=== PATIENT | female | born 1995 | race Hispanic/Latino ===

== ENCOUNTER 2019-03-12 20:20 | Emergency (ER) | payer BC ==
[2019-03-12] MEDS ORDERED: ACYCLOVIR 400 MG TABLET ONE (21:54)
[2019-03-12] MEDS ORDERED: predniSONE 20 MG TAB ONE (21:54)
[2019-03-12] MEDS ORDERED: FAMOTIDINE 20 MG TAB ONE (21:55)
--- NOTE | 2019-03-12 21:57 | ER ---
Nurse's Notes [facility] Name: Selina Bernstein Age: 24 yrs Sex: Female : 1995 Arrival Date: 03/12/2019 Time: 20:24 Bed 23 Private MD: Diagnosis: Enteroviral vesicular pharyngitis Presentation: 03/12 20:35 Presenting complaint: Patient states: throat pain X2 days, left side of face pain and ak1 left ear pain. Transition of care: patient was not received from another setting of care. Onset of symptoms is unknown. Risk Assessment: Do you want to hurt yourself or someone else? Patient reports no desire to harm self or others. Initial Sepsis Screen: Does the patient meet any 2 criteria? No. Patient's initial sepsis screen is negative. Does the patient have a suspected source of infection? No. Patient's initial sepsis screen is negative. Care prior to arrival: None. 20:35 Method Of Arrival: Ambulatory ak1 20:35 Acuity: SUNNI 4 ak1 Triage Assessment: 20:34 General: Appears in no apparent distress. Behavior is calm, cooperative. 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 - Social history:: Smoking status: Patient/guardian denies using tobacco. - Ebola Screening: : No symptoms or risks identified at this time. Screenin:20 Abuse screen: Denies threats or abuse. Denies injuries from another. Nutritional rv screening: No deficits noted. Tuberculosis screening: No symptoms or risk factors identified. Fall Risk None identified. Assessment: 21:19 General: Appears in no apparent distress. comfortable, Behavior is calm, cooperative. rv Pain: Complains of pain in face. Neuro: Level of Consciousness is awake, alert, obeys commands, Oriented to person, place, time, situation. Cardiovascular: Patient's skin is warm and dry. Respiratory: Airway is patent. GI: No signs and/or symptoms were reported involving the gastrointestinal system. : No signs and/or symptoms were reported regarding the genitourinary system. EENT: No signs and/or symptoms were reported regarding the EENT system. Derm: Skin is intact. Vital Signs: 20:34 BP 137 / 100; Pulse 92; Resp 16; Temp 97.4; Pulse Ox 99% on R/A; Weight 83.91 kg (R); ak1 Height 5 ft. 0 in. (152.40 cm) (R); Pain 7/10; 22:08 BP 125 / 85; Pulse 86; Resp 16; Pulse Ox 99% on R/A; rv 20:34 Body Mass Index 36.13 (83.91 kg, 152.40 cm) ak1 ED Course: 20:24 Patient arrived in ED. mr 20:34 Arm band placed on Patient placed in waiting room, Patient notified of wait time. ak1 20:35 Triage completed. ak1 20:45 Saleem Quiroz MD is Attending Physician. snw 20:45 Nadeen Dukes FNP-C is PHCP. snw 21:19 Brenden Hirsch RN is Primary Nurse. rv 21:20 Patient has correct armband on for positive identification. Bed in low position. Call rv light in reach. Side rails up X 1. Adult w/ patient. Pulse ox on. NIBP on. 22:08 No provider procedures requiring assistance completed. Patient did not have IV access rv during this emergency room visit. Administered Medications: 21:59 Drug: predniSONE 40 mg Route: PO; rv 22:07 Follow up: Response: No adverse reaction rv 21:59 Drug: Pepcid 20 mg Route: PO; rv 22:07 Follow up: Response: No adverse reaction rv 21:59 Drug: Acyclovir 800 mg Route: PO; rv 22:07 Follow up: Response: No adverse reaction rv Outcome: 21:56 Discharge ordered by . snw 22:08 Discharged to home ambulatory, with family. rv 22:08 Condition: good 22:08 Discharge instructions given to patient, Instructed on discharge instructions, follow up and referral plans. medication usage, Demonstrated understanding of instructions, follow-up care, medications, Prescriptions given X 2. 22:09 Patient left the ED. rv Signatures: Nadeen Dukes FNP-C FNP-Javier Ignacio Karol IrammiltonMarielena, RN RN ak1 Torrey, Brenden, RN RN rv
--- NOTE | 2019-03-12 21:57 | EDPHYS ---
Physician Documentation [facility] Name: Selina Bernstein Age: 24 yrs Sex: Female : 1995 Arrival Date: 03/12/2019 Time: 20:24 Bed 23 Private MD: ED Physician Saleem Quiroz HPI: 03/12 23:16 This 24 yrs old Female presents to ER via Ambulatory with complaints of Facial snw Swelling. 23:16 The patient presents with sore throat. The patient describes throat pain as raw, snw scratchy. Onset: The symptoms/episode began/occurred 3 day(s) ago, and became worse and became persistent. Severity of symptoms: At their worst the symptoms were mild, moderate. Associated signs and symptoms: Pertinent positives: earache, Sore throat pain with opening mouth. The patient has not experienced similar symptoms in the past. The patient has not recently seen a physician. pt feels tingly and swollen over left face. 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 - Social history:: Smoking status: Patient/guardian denies using tobacco. - Ebola Screening: : No symptoms or risks identified at this time. ROS: 23:15 Constitutional: Negative for fever, chills, and weight loss, Eyes: Negative for injury, snw pain, redness, and discharge, Neck: Negative for injury, pain, and swelling, Cardiovascular: Negative for chest pain, palpitations, and edema, Respiratory: Negative for shortness of breath, cough, wheezing, and pleuritic chest pain, Abdomen/GI: Negative for abdominal pain, nausea, vomiting, diarrhea, and constipation, Back: Negative for injury and pain, : Negative for injury, bleeding, discharge, and swelling, MS/Extremity: Negative for injury and deformity, Neuro: Negative for headache, weakness, numbness, tingling, and seizure, Psych: Negative for depression, anxiety, suicide ideation, homicidal ideation, and hallucinations. 23:15 ENT: Positive for ear pain, sore throat. 23:15 Skin: Positive for left face feels swollen and mildly tender from nondenominational to anterior cervical area. Exam: 22:53 Constitutional: This is a well developed, well nourished patient who is awake, alert, snw and in no acute distress. Head/Face: Normocephalic, atraumatic. Eyes: Pupils equal round and reactive to light, extra-ocular motions intact. Lids and lashes normal. Conjunctiva and sclera are non-icteric and not injected. Cornea within normal limits. Periorbital areas with no swelling, redness, or edema. Neck: Trachea midline, no thyromegaly or masses palpated, and no cervical lymphadenopathy. Supple, full range of motion without nuchal rigidity, or vertebral point tenderness. No Meningismus. Chest/axilla: Normal chest wall appearance and motion. Nontender with no deformity. No lesions are appreciated. Cardiovascular: Regular rate and rhythm with a normal S1 and S2. No gallops, murmurs, or rubs. Normal PMI, no JVD. No pulse deficits. Respiratory: Lungs have equal breath sounds bilaterally, clear to auscultation and percussion. No rales, rhonchi or wheezes noted. No increased work of breathing, no retractions or nasal flaring. Abdomen/GI: Soft, non-tender, with normal bowel sounds. No distension or tympany. No guarding or rebound. No evidence of tenderness throughout. Back: No spinal tenderness. No costovertebral tenderness. Full range of motion. Skin: Warm, dry with normal turgor. Normal color with no rashes, no lesions, and no evidence of cellulitis. MS/ Extremity: Pulses equal, no cyanosis. Neurovascular intact. Full, normal range of motion. Neuro: Awake and alert, GCS 15, oriented to person, place, time, and situation. Cranial nerves II-XII grossly intact. Motor strength 5/5 in all extremities. Sensory grossly intact. Cerebellar exam normal. Normal gait. Psych: Awake, alert, with orientation to person, place and time. Behavior, mood, and affect are within normal limits. 22:53 ENT: External ear(s): are unremarkable, TM's: are normal, Nose: is normal, Mouth: Oral mucosa: moist, Posterior pharynx: vesicle present at left mandibular soft palate posterior to last molar, pain increase with swallowing, opening mouth, left face with paresthesias. Vital Signs: 20:34 BP 137 / 100; Pulse 92; Resp 16; Temp 97.4; Pulse Ox 99% on R/A; Weight 83.91 kg (R); ak1 Height 5 ft. 0 in. (152.40 cm) (R); Pain 7/10; 22:08 BP 125 / 85; Pulse 86; Resp 16; Pulse Ox 99% on R/A; rv 20:34 Body Mass Index 36.13 (83.91 kg, 152.40 cm) ak1 MDM: 21:51 Patient medically screened. snw 22:55 Data reviewed: vital signs, nurses notes. Data interpreted: Pulse oximetry: on room air snw is 99 %. Interpretation: normal. Counseling: I had a detailed discussion with the patient and/or guardian regarding: the historical points, exam findings, and any diagnostic results supporting the discharge/admit diagnosis, to return to the emergency department if symptoms worsen or persist or if there are any questions or concerns that arise at home. Special discussion: Based on the history and exam findings, there is no indication for further emergent testing or inpatient evaluation. I discussed with the patient/guardian the need to see the primary care provider for further evaluation of the symptoms. 03/12 20:45 Order name: Strep; Complete Time: 22:56 snw Administered Medications: 21:59 Drug: predniSONE 40 mg Route: PO; rv 22:07 Follow up: Response: No adverse reaction rv 21:59 Drug: Pepcid 20 mg Route: PO; rv 22:07 Follow up: Response: No adverse reaction rv 21:59 Drug: Acyclovir 800 mg Route: PO; rv 22:07 Follow up: Response: No adverse reaction rv Disposition: 03/13 07:21 Co-signature as Attending Physician, Saleem Quiroz MD I agree with the assessment and kdr plan of care. Disposition: 03/12/19 21:56 Discharged to Home. Impression: Enteroviral vesicular pharyngitis. - Condition is Stable. - Discharge Instructions: Paresthesia, Pharyngitis. - Prescriptions for Valtrex 1 g Oral Tablet - take 1 tablet by ORAL route every 8 hours for 7 days; 21 tablet. Prednisone 20 mg Oral Tablet - take 2 tablet by ORAL route once daily for 5 days; 10 tablet. - Medication Reconciliation Form, Thank You Letter, Antibiotic Education, Prescription Opioid Use form. - Follow up: Private Physician; When: 2 - 3 days; Reason: Recheck today's complaints, Continuance of care, Re-evaluation by your physician. Follow up: Emergency Department; When: As needed; Reason: Worsening of condition. Signatures: Dispatcher [employer] EDMS Saleem Quiroz MD MD [facility] Nadeen Dukes, AIR TECHNICIAN-C AIR TECHNICIAN-Csnw Marielena Toney RN RN ak1 Brenden Hirsch RN RN rv Corrections: (The following items were deleted from the chart) 03/12 22:09 21:56 03/12/2019 21:56 Discharged to Home. Impression: Enteroviral vesicular rv pharyngitis. Condition is Stable. Forms are Medication Reconciliation Form, Thank You Letter, Antibiotic Education, Prescription Opioid Use. Follow up: Private Physician; When: 2 - 3 days; Reason: Recheck today's complaints, Continuance of care, Re-evaluation by your physician. Follow up: Emergency Department; When: As needed; Reason: Worsening of condition. snw
[2019-03-12 22:43] VITALS: TEMP 97.4; O2SAT 99
[2019-03-12 22:44] VITALS: BP 125/85
== END 2019-03-12 22:09 | disposition home or self-care (01) ==
LOC: ER 20:20
DX: B08.5 Enteroviral vesicular pharyngitis (principal)
CPT/HCPCS: 87070; 87081; 99283; J7512

== ENCOUNTER 2019-06-27 17:03 | Emergency (ER) | payer BC ==
[2019-06-27 18:32] LABS: Absolute Lymphocytes (CBC) 3.1 K/uL (0.7-4.9); Basophils % 0.6 % (0-1.3); Hematocrit 43.5 % (36.0-45.0); Lymphocytes % 28.6 % (15.3-44.8); MPV 8.7 fL (7.6-11.3); RBC Red Blood Cell Count 5.03 M/uL (3.86-4.86)
[2019-06-27 18:51] LABS: Albumin 3.9 g/dL (3.4-5.0); Bilirubin Direct 0.2 mg/dL (0-0.2); Bilirubin Total 0.9 mg/dL (0.2-1.0); Potassium 3.8 mmol/L (3.5-5.1)
[2019-06-27 19:39] LABS: Urine Blood NEGATIVE (NEG); Urine Glucose NEGATIVE (NEG); Urine Protein NEGATIVE (NEG); Urine Specific Gravity 1.025 (1.005-1.030); Urine pH 5.5 (5.0-7.0)
--- NOTE | 2019-06-27 20:21 | EDPHYS ---
Physician Documentation [facility] Name: Selina Bernstein Age: 24 yrs Sex: Female : 1995 Arrival Date: 06/27/2019 Time: 17:07 Bed 28 Private MD: ED Physician Savage Obando HPI: 06/27 20:22 This 24 yrs old Female presents to ER via Ambulatory with complaints of Back la1 Pain. 20:22 The patient presents with pain that is acute, with no known mechanism of injury. The la1 symptoms are located in the low back. Onset: The symptoms/episode began/occurred yesterday. The pain radiates to the abdomen. Associated signs and symptoms: Pertinent negatives: fever, nausea, urinary retention, vomiting, diarrhea. Modifying factors: The patient symptoms are alleviated by nothing, the patient symptoms are aggravated by bending, movement, palpation. Severity of symptoms: At their worst the symptoms were moderate, in the emergency department the symptoms are unchanged. The patient has not experienced similar symptoms in the past. 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 - Social history:: Smoking status: Patient denies any tobacco usage or history of. - Ebola Screening: : Patient negative for fever greater than or equal to 101.5 degrees Fahrenheit, and additional compatible Ebola Virus Disease symptoms Patient denies exposure to infectious person Patient denies travel to an Ebola-affected area in the 21 days before illness onset No symptoms or risks identified at this time. ROS: 20:23 Constitutional: Negative for fever, chills, and weight loss, Eyes: Negative for injury, la1 pain, redness, and discharge, ENT: Negative for injury, pain, and discharge, Neck: Negative for injury, pain, and swelling, Cardiovascular: Negative for chest pain, palpitations, and edema, Respiratory: Negative for shortness of breath, cough, wheezing, and pleuritic chest pain. 20:23 Back: Negative for injury and pain, : Negative for injury, bleeding, discharge, and swelling, MS/Extremity: Negative for injury and deformity, Neuro: Negative for headache, weakness, numbness, tingling, and seizure. 20:23 Back: Positive for pain at rest, pain with movement. Exam: 20:23 Constitutional: This is a well developed, well nourished patient who is awake, alert, la1 and in no acute distress. Head/Face: Normocephalic, atraumatic. Eyes: Periorbital areas with no swelling, redness, or edema. ENT: Mucous membranes moist. Neck: Trachea midline, . No Meningismus. Chest/axilla: Normal chest wall appearance and motion. Nontender with no deformity. No lesions are appreciated. Cardiovascular: Regular rate and rhythm with a normal S1 and S2. No gallops, murmurs, or rubs. Normal PMI, no JVD. No pulse deficits. Respiratory: Lungs have equal breath sounds bilaterally, clear to auscultation No rales, rhonchi or wheezes noted. No increased work of breathing, no retractions or nasal flaring. Abdomen/GI: Soft, non-tender, with normal bowel sounds. No distension or tympany. No guarding or rebound. No evidence of tenderness throughout. 20:23 Back: pain, that is moderate, of the right low back, ROM is normal, normal spinal alignment noted, CVA tenderness, is absent, tenderness to palpation that reproduces sx to the right low back. 20:23 Neuro: Orientation: is normal, Mentation: is normal, Motor: is normal, Sensation: is normal, Gait: is steady. Vital Signs: 17:38 BP 139 / 82; Pulse 97; Resp 16; Temp 98.5; Pulse Ox 99% on R/A; Weight 83.46 kg; Height iw 5 ft. (152.40 cm); Pain 8/10; 19:17 BP 122 / 85; Pulse 96; Resp 18; Pulse Ox 100% on R/A; mg2 20:25 BP 123 / 78; Pulse 80; Resp 18; Temp 98(O); Pulse Ox 100% ; mg2 17:38 Body Mass Index 35.93 (83.46 kg, 152.40 cm) iw MDM: 17:59 Patient medically screened. la1 20:16 Data reviewed: vital signs, nurses notes, lab test result(s), and as a result, I will la1 discharge patient. Data interpreted: Pulse oximetry: on room air is 100 %. Interpretation: normal. Counseling: I had a detailed discussion with the patient and/or guardian regarding: the historical points, exam findings, and any diagnostic results supporting the discharge/admit diagnosis, lab results, the need for outpatient follow up, a family practitioner. Special discussion: Based on the patient's Hx, exam, and Dx evaluation, there is no indication for emergent surgery or inpatient Tx. It is understood by the patient/guardian that if the Sx's persist or worsen they need to return immediately for re-evaluation. Based on the history and exam findings, there is no indication for further emergent testing or inpatient evaluation. I discussed with the patient/guardian the need to see the primary care provider for further evaluation of the symptoms. 06/27 18:14 Order name: Basic Metabolic Panel; Complete Time: 18:54 la06/27 18:14 Order name: CBC with Diff; Complete Time: 18:54 va06/27 18:14 Order name: Hepatic Function; Complete Time: 18:54 06/27 18:14 Order name: Lipase; Complete Time: 18:54 06/27 19:17 Order name: Urine Dipstick--Ancillary (enter results); Complete Time: 20:03 bd 06/27 19:17 Order name: Urine --Ancillary (enter results); Complete Time: 20:03 bd 06/27 18:14 Order name: IV Saline Lock; Complete Time: 18:32 la1 06/27 18:14 Order name: Labs collected and sent; Complete Time: 18:32 la06/27 18:14 Order name: Urine Dipstick-Ancillary (obtain specimen); Complete Time: 18:14 06/27 18:14 Order name: Urine Test (obtain specimen); Complete Time: 18:14 la1 Administered Medications: No medications were administered Disposition: 06/28 08:11 Co-signature as Attending Physician, Savage Obando MD. rn Disposition: 06/27/19 20:20 Discharged to Home. Impression: Low back pain. - Condition is Stable. - Discharge Instructions: Back Pain, Adult, Musculoskeletal Pain, Back Pain, Adult, [id number], Back Exercises, [id number]. - Prescriptions for Cyclobenzaprine 10 mg Oral Tablet - take 1 tablet by ORAL route every 8 hours As needed; 30 tablet. - Medication Reconciliation Form, Thank You Letter form. - Follow up: Private Physician; When: 2 - 3 days; Reason: Recheck today's complaints, Re-evaluation by your physician. - Problem is new. - Symptoms have improved. Signatures: Dispatcher [employer] EDNevin Gannon RN RN iw Savage Obando MD MD rn Attema, Lee, ATTENDING AMBULATORY CARE-C ATTENDING AMBULATORY CARE-Cla1 Bryn Smith RN RN mg2 Corrections: (The following items were deleted from the chart) 06/27 20:26 20:20 06/27/2019 20:20 Discharged to Home. Impression: Low back pain. Condition is mg2 Stable. Forms are Medication Reconciliation Form, Thank You Letter, Antibiotic Education, Prescription Opioid Use. Follow up: Private Physician; When: 2 - 3 days; Reason: Recheck today's complaints, Re-evaluation by your physician. Problem is new. Symptoms have improved. la1
--- NOTE | 2019-06-27 20:21 | ER ---
Nurse's Notes [facility] Name: Selina Bernstein Age: 24 yrs Sex: Female : 1995 Arrival Date: 06/27/2019 Time: 17:07 Bed 28 Private MD: Diagnosis: Low back pain Presentation: 06/27 17:36 Presenting complaint: Patient states: middle back pain since yesterday now radiates iw around to RUQ. Transition of care: patient was not received from another setting of care. Onset of symptoms was June 26, 2019. Risk Assessment: Do you want to hurt yourself or someone else? Patient reports no desire to harm self or others. Initial Sepsis Screen: Does the patient meet any 2 criteria? No. Patient's initial sepsis screen is negative. Does the patient have a suspected source of infection? No. Patient's initial sepsis screen is negative. Care prior to arrival: None. 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 - Social history:: Smoking status: Patient denies any tobacco usage or history of. - Ebola Screening: : Patient negative for fever greater than or equal to 101.5 degrees Fahrenheit, and additional compatible Ebola Virus Disease symptoms Patient denies exposure to infectious person Patient denies travel to an Ebola-affected area in the 21 days before illness onset No symptoms or risks identified at this time. Screenin:34 Abuse screen: Denies threats or abuse. Denies injuries from another. Nutritional mg2 screening: No deficits noted. Tuberculosis screening: No symptoms or risk factors identified. Fall Risk IV access (20 points). Assessment: 18:32 General: Appears in no apparent distress. comfortable, Behavior is calm, cooperative. mg2 Pain: Complains of pain in back Pain radiates to abdomen Pain currently is 3 out of 10 on a pain scale. Quality of pain is described as aching, Pain began gradually, Is intermittent. Neuro: Level of Consciousness is awake, alert, obeys commands, Oriented to person, place, time, situation. Cardiovascular: Capillary refill < 3 seconds Patient's skin is warm and dry. Respiratory: Airway is patent Respiratory effort is even, unlabored, Respiratory pattern is regular, symmetrical. GI: Reports upper abdominal pain, nausea. : No signs and/or symptoms were reported regarding the genitourinary system. EENT: No signs and/or symptoms were reported regarding the EENT system. Derm: Skin is intact, is healthy with good turgor, Skin is pink, warm \T\ dry. normal. Musculoskeletal: Circulation, motion, and sensation intact. Capillary refill < 3 seconds. 19:17 Reassessment: Patient appears in no apparent distress at this time. Patient and/or mg2 family updated on plan of care and expected duration. Pain level reassessed. Patient is alert, oriented x 3, equal unlabored respirations, skin warm/dry/pink. Vital Signs: 17:38 BP 139 / 82; Pulse 97; Resp 16; Temp 98.5; Pulse Ox 99% on R/A; Weight 83.46 kg; Height iw 5 ft. (152.40 cm); Pain 8/10; 19:17 BP 122 / 85; Pulse 96; Resp 18; Pulse Ox 100% on R/A; mg2 20:25 BP 123 / 78; Pulse 80; Resp 18; Temp 98(O); Pulse Ox 100% ; mg2 17:38 Body Mass Index 35.93 (83.46 kg, 152.40 cm) iw ED Course: 17:07 Patient arrived in ED. mr 17:38 Triage completed. iw 17:38 Arm band placed on. iw 17:59 [facility]C [facility] la1 17:59 Savage Obando MD is Attending Physician. la1 18:14 Bryn Smith, KARRIE is Primary Nurse. mg2 18:36 Patient has correct armband on for positive identification. mg2 18:36 No provider procedures requiring assistance completed. Inserted saline lock: 20 gauge mg2 in left antecubital area, using aseptic technique. Blood collected. 20:26 IV discontinued, intact, bleeding controlled, No redness/swelling at site. Pressure mg2 dressing applied. Administered Medications: No medications were administered Outcome: 20:20 Discharge ordered by . la1 20:26 Discharged to home ambulatory, with family. mg2 20:26 Condition: good 20:26 Discharge instructions given to patient, family, Instructed on discharge instructions, follow up and referral plans. medication usage, Demonstrated understanding of instructions, follow-up care, medications, Prescriptions given X 1. 20:26 Patient left the ED. mg2 Signatures: Karol Pierre Irene, RN RN iw Eric Harrington, FIELD SALES TRAINER-C FIELD SALES TRAINER-Cla1 Bryn Smith RN RN mg2
[2019-06-28 02:46] VITALS: O2SAT 100
[2019-06-28 02:48] VITALS: BP 123/78; TEMP 98
== END 2019-06-27 20:26 | disposition home or self-care (01) ==
LOC: ER 17:03
DX: M54.5 Low back pain (principal)
CPT/HCPCS: 36415; 80048; 80076; 81003; 81025; 83690; 85025; 99283

== ENCOUNTER 2021-02-07 13:12 | Emergency (ER) | payer BC, OTHER ==
--- OUTSIDE RECORDS SUMMARY | 2021-02-07 13:15 | XMS REPORT | Continuity of Care Document ---
:1995 Author Organization [facility] t Address [address] [place] [address] Dr. Olson [address] [place] [id number] Care Team Providers Name Role Phone Unavailable Unavailable Unavailable Problems This patient has no known problems. Allergies, Adverse Reactions, Alerts This patient has no known allergies or adverse reactions. Medications This patient has no known medications. Procedures This patient has no known procedures. Results This patient has no known results.
[2021-02-07 15:29] LABS: SARS-COV-2 RT PCR NEGATIVE (NEGATIVE)
--- NOTE | 2021-02-07 16:07 | ER ---
Nurse's Notes [facility] Name: Selina Bernstein Age: 26 yrs Sex: Female : 1995 Arrival Date: 02/07/2021 Time: 13:17 Bed DX2 Private MD: Diagnosis: Otitis externa in other diseases classified elsewhere, bilateral Presentation: 02/07 14:11 Chief complaint: Patient states: Chet ear pain, headache, body aches that began last aa5 night. Pt also reports nausea. Denies cough, denies vomiting. Coronavirus screen: headache, muscle pain. Ebola Screen: Patient negative for fever greater than or equal to 101.5 degrees Fahrenheit, and additional compatible Ebola Virus Disease symptoms. Initial Sepsis Screen: Does the patient meet any 2 criteria? HR > 90 bpm. Does the patient have a suspected source of infection? No. Patient's initial sepsis screen is negative. Risk Assessment: Do you want to hurt yourself or someone else? Patient reports no desire to harm self or others. Onset of symptoms was February 2021. 14:11 Method Of Arrival: Ambulatory aa5 14:11 Acuity: SUNNI 4 aa5 Historical: - Allergies: 14:14 No Known Allergies; aa5 - PMHx: 14:14 None; aa5 - PSHx: 14:14 None; aa5 - Immunization history:: Client reports having NOT received the Covid vaccine. - Social history:: Smoking status: Patient denies any tobacco usage or history of. Screenin:19 Abuse screen: Denies threats or abuse. Denies injuries from another. Nutritional kg screening: No deficits noted. Tuberculosis screening: No symptoms or risk factors identified. Fall Risk None identified. Vital Signs: 14:11 BP 147 / 101; Pulse 120; Resp 18 S; Temp 100.7(O); Pulse Ox 95% on R/A; Weight 79.38 kg aa5 (R); Height 5 ft. 0 in. (152.40 cm) (R); 17:19 BP 125 / 73; Pulse 112; Resp 18; Pulse Ox 98% on R/A; kg 14:11 Body Mass Index 34.18 (79.38 kg, 152.40 cm) aa5 ED Course: 13:17 Patient arrived in ED. mr 14:11 Arm band placed on. aa5 14:13 Triage completed. aa5 15:40 Ayden Dominguez NP is PHCP. pm1 15:40 Yury Caruso MD is Attending Physician. pm1 15:40 PHCP role handed off by Ayden Dominguez NP cp 15:40 Yury Sharma PA is PHCP. cp 15:40 Ayden Dominguez NP is PHCP. pm1 15:55 Soheila Menchaca, RN is Primary Nurse. kg 17:19 Patient has correct armband on for positive identification. kg 17:19 No provider procedures requiring assistance completed. Patient did not have IV access kg during this emergency room visit. Administered Medications: 16:37 Drug: Ibuprofen 800 mg Route: PO; kg 17:19 Follow up: Response: No adverse reaction kg Outcome: 16:06 Discharge ordered by . pm1 17:19 Discharged to home ambulatory. kg 17:19 Condition: good 17:19 Discharge instructions given to patient, Instructed on discharge instructions, follow up and referral plans. 17:19 Instructed on Demonstrated understanding of instructions, follow-up care, medications, Prescriptions given X 2. 17:20 Patient left the ED. kg Signatures: Karol Pierre mr Lynch, Berna, RN RN aa5 Yury Sharma PA PA cp Ayden Dominguez NP SCREEN PRINTING PASTER pm1 Soheila Menchaca RN RN kg
--- NOTE | 2021-02-07 16:07 | EDPHYS ---
Physician Documentation [facility] Name: Selina Bernstein Age: 26 yrs Sex: Female : 1995 Arrival Date: 02/07/2021 Time: 13:17 Bed DX2 Private MD: ED Physician Yury Caruso HPI: 02/07 15:44 This 26 yrs old Female presents to ER via Ambulatory with complaints of Ear pm1 Pain, Headache. 15:44 The patient presents with pain. The complaints affect the right ear and left ear. pm1 Onset: The symptoms/episode began/occurred 3 day(s) ago. Modifying factors: The symptoms are alleviated by nothing, the symptoms are aggravated by pulling on ears. Associated signs and symptoms: Pertinent positives: Headache, body aches, nausea. Severity of symptoms: in the emergency department the symptoms are unchanged. The patient has not experienced similar symptoms in the past. The patient has not recently seen a physician. Historical: - Allergies: 14:14 No Known Allergies; aa5 - PMHx: 14:14 None; aa5 - PSHx: 14:14 None; aa5 - Immunization history:: Client reports having NOT received the Covid vaccine. - Social history:: Smoking status: Patient denies any tobacco usage or history of. ROS: 15:44 Neck: Negative for injury, pain, and swelling, Cardiovascular: Negative for chest pain, pm1 palpitations, and edema, Respiratory: Negative for shortness of breath, cough, wheezing, and pleuritic chest pain. 15:44 Back: Negative for injury and pain, MS/Extremity: Negative for injury and deformity, Skin: Negative for injury, rash, and discoloration. 15:44 Constitutional: Positive for body aches, Negative for poor PO intake. 15:44 ENT: Positive for ear pain, Negative for sore throat. 15:44 Abdomen/GI: Positive for nausea, Negative for abdominal pain, vomiting, diarrhea. 15:44 Neuro: Positive for headache, Negative for numbness, tingling. Exam: 15:44 Constitutional: This is a well developed, well nourished patient who is awake, alert, pm1 and in no acute distress. Head/Face: Normocephalic, atraumatic. 15:44 Skin: Warm, dry with normal turgor. Normal color with no rashes, no lesions, and no evidence of cellulitis. MS/ Extremity: Pulses equal, no cyanosis. Neurovascular intact. Full, normal range of motion. 15:44 Eyes: Exam is negative for acute changes, Extraocular movements: intact throughout, Conjunctiva: no acute changes, no injection. 15:44 ENT: External ear(s): are unremarkable, Ear canal(s): erythema, bilaterally, swelling, that is moderate, bilaterally, TM's: not visable, Swelling from otitis externa, Mouth: Lips: normal, Oral mucosa: normal, pink and intact, moist, Posterior pharynx: no acute changes. 15:44 Cardiovascular: Rate: normal, Rhythm: regular, Pulses: no pulse deficits are appreciated, Heart sounds: normal. 15:44 Respiratory: Exam negative for acute changes, respiratory distress, shortness of breath. 15:44 Abdomen/GI: Exam negative for acute changes, Inspection: abdomen appears normal, Palpation: abdomen is soft and non-tender, in all quadrants. 15:44 Neuro: Exam negative for acute changes, Orientation: is normal, Mentation: is normal, pm1 Motor: is normal, moves all fours, Gait: is steady, at a normal pace, without difficulty. Vital Signs: 14:11 BP 147 / 101; Pulse 120; Resp 18 S; Temp 100.7(O); Pulse Ox 95% on R/A; Weight 79.38 kg aa5 (R); Height 5 ft. 0 in. (152.40 cm) (R); 17:19 BP 125 / 73; Pulse 112; Resp 18; Pulse Ox 98% on R/A; kg 14:11 Body Mass Index 34.18 (79.38 kg, 152.40 cm) aa5 MDM: 15:44 Patient medically screened. [facility] 16:03 Data reviewed: vital signs. Data interpreted: Pulse oximetry: on room air is 95 %. pm1 Interpretation: normal. Counseling: I had a detailed discussion with the patient and/or guardian regarding: the historical points, exam findings, and any diagnostic results supporting the discharge/admit diagnosis, lab results, the need for outpatient follow up, to return to the emergency department if symptoms worsen or persist or if there are any questions or concerns that arise at home. 16:03 ED course: Unable to visualize tympanic membranes due to bilateral otitis externa. With pm1 the presence of fever possibility of otitis media present therefore will cover the patient with oral antibiotics in addition to otic suspension. 02/07 14:14 Order name: COVID-19 : Document "Date of Symptom Onset" if Symptomatic. aa5 02/07 14:14 Order name: Flu aa5 02/07 15:29 Order name: COVID-19/FLU A+B; Complete Time: 15:44 EDMS Administered Medications: 16:37 Drug: Ibuprofen 800 mg Route: PO; kg 17:19 Follow up: Response: No adverse reaction kg Disposition Summary: 02/07/21 16:06 Discharge Ordered Location: Home pm1 Problem: new pm1 Symptoms: have improved pm1 Condition: Stable pm1 Diagnosis - Otitis externa in other diseases classified elsewhere, bilateral pm1 Followup: pm1 - With: Emergency Department - When: As needed - Reason: Worsening of condition Followup: pm1 - With: Private Physician - When: 2 - 3 days - Reason: Recheck today's complaints, Continuance of care, Re-evaluation by your physician Discharge Instructions: - Discharge Summary Sheet pm1 - Otitis Externa pm1 - Ear Drops, Adult, [id number] pm1 Forms: - Medication Reconciliation Form pm1 - Thank You Letter pm1 - Antibiotic Education pm1 - Prescription Opioid Use pm1 Prescriptions: - hydrocortisone/neomycin/polymyxin otic suspension - instill 4 drop by OTIC route every 6 hours for 10 days; 1 vial; Refills: 0, pm1 Product Selection Permitted - Amoxicillin 500 mg Oral Capsule - take 1 capsule by ORAL route every 8 hours for 10 days; 30 tablet; Refills: 0, pm1 Product Selection Permitted Addendum: 02/09/2021 15:09 Co-signature as Attending Physician, Yury Caruso MD I agree with the assessment and c kunz plan of care. Signatures: Dispatcher [employer] EDMS Yury Caruso MD MD cha Calderon, Audri, RN RN aa5 Ayden Dominguez NP SENIOR ENGINEER pm1 Soheila Menchaca RN RN kg Corrections: (The following items were deleted from the chart) 02/07 14:39 14:15 CORONAVIRUS ordered. EDMS EDMS 14:39 14:15 Influenza Screen (A ordered. EDMS EDMS
[2021-02-07] MEDS ORDERED: IBUPROFEN 400 MG TAB ONE (16:58)
[2021-02-07 17:24] VITALS: TEMP 100.7
[2021-02-07 17:26] VITALS: BP 125/73; O2SAT 98
== END 2021-02-07 17:20 | disposition home or self-care (01) ==
LOC: ER 13:12
DX: H60.93 Unspecified otitis externa, bilateral (principal); Z20.822 Contact with and (suspected) exposure to COVID-19
CPT/HCPCS: 0240U; 99283

== ENCOUNTER 2021-11-29 19:19 | Emergency (ER) | payer OTHER ==
[2021-11-29] MEDS ORDERED: ACETAMINOPHEN 500 MG TAB ONE (20:12)
[2021-11-29] MEDS ORDERED: IBUPROFEN 400 MG TAB ONE (20:12)
--- NOTE | 2021-11-29 20:51 | RAD REPORT ---
EXAM DESCRIPTION: RAD - Foot Left 3 View - 11/29/2021 8:35 pm CLINICAL HISTORY: PAIN COMPARISON: No comparisons FINDINGS: No fracture, dislocation or periosteal reaction. No acute or destructive bony process. No air or foreign body in the soft tissues. Soft tissues of the dorsum of the foot rotator slightly t hickened. IMPRESSION: Negative left foot examination for acute bone or joint finding.
--- NOTE | 2021-11-29 21:39 | ER ---
Nurse's Notes [facility] Name: Selina Lundberg Age: 26 yrs Sex: Female : 1995 Arrival Date: 11/29/2021 Time: 19:21 Bed 12 Private MD: Diagnosis: Other sprain of left foot Presentation: 11/29 19:56 Chief complaint: Patient states: "I was walking down my moms hallway and I fell and vc1 felt like I bent my foot forward. Coronavirus screen: Vaccine status: Patient reports being unvaccinated. At this time, the client does not indicate any symptoms associated with coronavirus-19. Ebola Screen: No symptoms or risks identified at this time. Initial Sepsis Screen: Does the patient meet any 2 criteria? No. Patient's initial sepsis screen is negative. Does the patient have a suspected source of infection? No. Patient's initial sepsis screen is negative. Risk Assessment: Do you want to hurt yourself or someone else? Patient reports no desire to harm self or others. Onset of symptoms was November 29, 2021. 19:56 Method Of Arrival: Wheelchair vc1 19:56 Acuity: SUNNI 3 vc1 Triage Assessment: 19:58 General: Appears in no apparent distress. Behavior is calm, cooperative, agitated. vc1 Pain: Complains of pain in dorsum of left foot Pain does not radiate. Pain currently is 10 out of 10 on a pain scale. EENT: No deficits noted. Neuro: No deficits noted. Cardiovascular: Capillary refill < 3 seconds Patient's skin is warm and dry. Respiratory: Airway is patent Respiratory effort is even, unlabored, Respiratory pattern is regular, symmetrical. GI: No deficits noted. : No deficits noted. Derm: Musculoskeletal: Swelling present in dorsum of left foot. 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 - Social history:: Smoking status: Patient denies any tobacco usage or history of. Screenin:11 Abuse screen: Denies threats or abuse. Nutritional screening: No deficits noted. vc1 Tuberculosis screening: No symptoms or risk factors identified. Fall Risk None identified. Vital Signs: 19:56 BP 148 / 102; Pulse 105; Resp 18; Temp 98.8; Pulse Ox 100% ; Weight 81.65 kg; Height 5 vc1 ft. 0 in. (152.40 cm); Pain 10/10; 20:08 BP 139 / 94; vc1 19:56 Body Mass Index 35.15 (81.65 kg, 152.40 cm) vc1 ED Course: 19:21 Patient arrived in ED. mr 19:35 Yury Sharma PA is PHCP. cp 19:35 Jatin Jack MD is Attending Physician. cp 19:58 Triage completed. vc1 19:58 Arm band placed on right wrist. vc1 20:37 XRAY Foot LEFT 3 View In Process Unspecified. EDMS 21:39 Carlos Jones MD is Referral Physician. cp 22:11 No provider procedures requiring assistance completed. Patient did not have IV access vc1 during this emergency room visit. Ortho shoe applied to left foot. 22:12 Patient has correct armband on for positive identification. vc1 Administered Medications: 20:07 Drug: Ibuprofen 800 mg Route: PO; vc1 20:07 Drug: Tylenol 1000 mg Route: PO; vc1 Medication: 22:12 VIS not applicable for this client. vc1 Outcome: 21:39 Discharge ordered by . cp 22:12 Discharged to home with crutches. vc1 22:12 Condition: good 22:12 Discharge instructions given to patient, Instructed on discharge instructions, follow up and referral plans. medication usage, Demonstrated understanding of instructions, follow-up care, medications, Prescriptions given X 1. 22:14 Patient left the ED. bb Signatures: Dispatcher [facility] Karol Pierre Brenda, RN RN Yury Bedoya PA PA cp Selina Oviedo RN RN vc1
--- NOTE | 2021-11-29 21:40 | EDPHYS ---
Physician Documentation [facility] Name: Selina Lundberg Age: 26 yrs Sex: Female : 1995 Arrival Date: 11/29/2021 Time: 19:21 Bed 12 Private MD: ED Physician Jatin Jack HPI: 11/29 20:03 This 26 yrs old Female presents to ER via Wheelchair with complaints of Left cp Foot Injury. 20:03 The patient presents with an injury, pain, that is acute, swelling, tenderness. cp 20:03 The complaints affect the left foot. Context: resulted from trip and fall, Mechanism of cp Injury: Inversion the patient is not able to bear weight. 20:03 Onset: The symptoms/episode began/occurred today. 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 - Social history:: Smoking status: Patient denies any tobacco usage or history of. ROS: 20:10 MS/extremity: Positive for pain, swelling, tenderness, of the left foot, Negative for cp deformity, paresthesias. 20:10 Constitutional: Negative for chills, fever, poor PO intake. cp 20:10 Neck: Negative for pain with movement, pain at rest. 20:10 Cardiovascular: Negative for chest pain, palpitations. 20:10 Respiratory: Negative for cough, shortness of breath, wheezing. 20:10 Back: Negative for pain at rest, pain with movement. 20:10 Neuro: Negative for headache, numbness, tingling, weakness. 20:10 All other systems are negative. Exam: 20:15 Constitutional: The patient appears in no acute distress, alert, awake, non-toxic, well cp developed, well nourished, overweight 20:15 Head/Face: Normocephalic, atraumatic. cp 20:15 Neck: ROM/movement: is normal, is supple, without pain, no range of motions limitations. 20:15 Back: pain, is absent, ROM is normal. 20:15 Musculoskeletal/extremity: Extremities: grossly normal except: noted in the dorsum of left foot: pain, swelling, tenderness, There is no evidence of decreased ROM, deformity, Pulses: noted to be 2+ in the left dorsalis pedis artery, the left foot Sensation intact. 20:15 Skin: cellulitis, is not appreciated, no rash present. Vital Signs: 19:56 BP 148 / 102; Pulse 105; Resp 18; Temp 98.8; Pulse Ox 100% ; Weight 81.65 kg; Height 5 vc1 ft. 0 in. (152.40 cm); Pain 10/10; 20:08 BP 139 / 94; vc1 19:56 Body Mass Index 35.15 (81.65 kg, 152.40 cm) vc1 MDM: 21:35 Patient medically screened. cp 21:39 Data reviewed: vital signs, nurses notes, radiologic studies, plain films. cp 21:39 Differential diagnosis: fracture, sprain, dislocation. Test interpretation: by ED cp physician or midlevel provider: plain radiologic studies. Counseling: I had a detailed discussion with the patient and/or guardian regarding: the historical points, exam findings, and any diagnostic results supporting the discharge/admit diagnosis, radiology results, the need for outpatient follow up, a orthopedic surgeon, to return to the emergency department if symptoms worsen or persist or if there are any questions or concerns that arise at home. Response to treatment: the patient's symptoms have markedly improved after treatment, and as a result, I will discharge patient. 11/29 20:04 Order name: XRAY Foot LEFT 3 View; Complete Time: 21:36 cp 11/29 21:36 Interpretation: Reviewed report. cp 11/29 20:01 Order name: Ice pack; Complete Time: 20:05 vc1 11/29 21:39 Order name: Crutches cp 11/29 21:39 Order name: Walking boot cp Administered Medications: 20:07 Drug: Ibuprofen 800 mg Route: PO; vc1 20:07 Drug: Tylenol 1000 mg Route: PO; vc1 Disposition: 11/30 07:56 Co-signature as Attending Physician, Jatin Jack MD. [email or web address] Disposition Summary: 11/29/21 21:39 Discharge Ordered Location: Home cp Problem: new cp Symptoms: have improved cp Condition: Stable cp Diagnosis - Other sprain of left foot cp Followup: cp - With: Carlos Jones MD - When: 1 week - Reason: Recheck today's complaints Discharge Instructions: - Discharge Summary Sheet cp - Foot Sprain cp Forms: - Medication Reconciliation Form cp - Thank You Letter cp - Work release form bd - Antibiotic Education cp - Prescription Opioid Use cp Prescriptions: - Naprosyn 500 mg Oral Tablet - take 1 tablet by ORAL route 2 times per day take with food; 20 tablet; Refills: cp 0, Product Selection Permitted Signatures: Dispatcher [employer] EDMS Yury Sharma PA PA cp Jatin Jack MD MD [id number] Selina Oviedo RN RN vc1 Corrections: (The following items were deleted from the chart) 21:52 11/29 20:03 Context: resulted from a mis-step by the patient, on a carpet edge, cp Mechanism of Injury: Inversion cp
[2021-11-29 22:24] VITALS: TEMP 98.8; O2SAT 100
[2021-11-29 22:25] VITALS: BP 139/94
== END 2021-11-29 22:14 | disposition home or self-care (01) ==
LOC: ER 19:19
DX: S93.692A Other sprain of left foot, initial encounter (principal); W01.0XXA Fall on same level from slipping, tripping and stumbling without subsequent striking against object, initial encounter
CPT/HCPCS: 99284

== ENCOUNTER 2022-02-10 11:55 | Emergency (ER) | payer BC, OTHER ==
[2022-02-10] MEDS ORDERED: ONDANSETRON 4 MG/2 ML VIAL ONE (12:24)
[2022-02-10] MEDS ORDERED: MORPHINE 4 MG/ML SYR ONE (12:24)
--- NOTE | 2022-02-10 12:39 | RAD REPORT ---
EXAM DESCRIPTION: CT - Spine Lumbar Wo Con - 02/10/2022 12:30 pm CLINICAL HISTORY: Radiculopathy. low back pain COMPARISON: No comparisons TECHNIQUE: Axial noncontrast CT imaging of the lumbar spine was performed with coronal and sagittal re-formatted images. All CT scans are performed using dose optimization technique as appropriate and may include automated exposure control or mA/KV adjustment according to patient size. FINDINGS: No acute lumbar spine fracture seen. No aggressive marrow pattern or malalignment. Paraspinal tissues are normal in thickness. No paraspinal abscess or hematoma seen. Disc herniation is probably present at L5 -S1. IMPRESSION: No acute findings seen. Probable disc herniation identified at L5-S1. MRI lumbar spine would be recommended for further evalu ation as clinically indicated.
[2022-02-10 13:49] LABS: Urine Blood 3+ (Negative); Urine Glucose Negative (Negative); Urine Protein Negative (Negative); Urine Specific Gravity 1.015 (1.005-1.030)
[2022-02-10] MEDS ORDERED: KETOROLAC 30 MG/ML INJ ONE (14:08)
[2022-02-10] MEDS ORDERED: HYDROMORPHONE HCL 0.5 MG/0.5 ML INJ ONE (14:08)
[2022-02-10 14:26] LABS: Urine Specific Gravity/Preg 1.015 (1.005-1.030)
[2022-02-10] MEDS ORDERED: DIAZEPAM 10 MG/2 ML INJ SYRINGE ONE (15:51)
[2022-02-10] MEDS ORDERED: dexAMETHasone 10 MG/ML VIAL ONE (15:52)
--- NOTE | 2022-02-10 18:45 | RAD REPORT ---
EXAM DESCRIPTION: MRI - Lumbar Spine Wo Con- 02/10/2022 6:23 pm CLINICAL HISTORY: abnormal ct Back pain, radiculopathy COMPARISON: Spine Lumbar Wo Con dated 02/10/2022 FINDINGS: Vertebral body heights are within normal limits. No aggressive marrow pattern is observed. No fracture is suspected. The conus medullaris terminates at a normal level. No thickening of the cauda equina or clumping of n erve roots seen. L1-2 level: No significant findings. L2-3 level: No significant findings. L3-4 level: No significant findings. L4-5 level: Minimal posterior disc bulging. L5-S1 level: Moderate sized disc protrusion is present measuring 4-5 mm in maximum AP dimension. Post erior annular fissure is also noted centrally. No significant central canal narrowing. Both exit fora cleo are patent. IMPRESSION: L5-S1 moderate disc protrusion is present with posterior annular fissure. No severe canal stenosis foraminal stenosis seen at any level.
--- NOTE | 2022-02-10 18:55 | EDPHYS ---
Physician Documentation [facility] Name: Selina Lundberg Age: 27 yrs Sex: Female : 1995 Arrival Date: 02/10/2022 Time: 12:02 Bed 23 Private MD: ED Physician Wily Muhammad HPI: 02/10 12:08 This 27 yrs old Female presents to ER via EMS with complaints of Back Pain. [facility] 12:08 This is a 27-year-old female with history of hypertension that presents emerged part jm with complaints of lower back pain which she states she awoke to. Patient states she is unable to walk due to pain. Denies radiation of pain, denies urinary or fecal incontinence. Denies recent trauma. Denies fever.. 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 - Social history:: Smoking status: Patient denies any tobacco usage or history of. ROS: 12:08 Constitutional: Negative for fever, chills, and weight loss, Cardiovascular: Negative [facility] for chest pain, palpitations, and edema, Respiratory: Negative for shortness of breath, cough, wheezing, and pleuritic chest pain. 12:08 Back: Positive for pain with movement. 12:08 All other systems are negative. Exam: 12:08 Constitutional: This is a well developed, well nourished patient who is awake, alert, jmm and in no acute distress. Head/Face: atraumatic. Eyes: EOMI, no conjunctival erythema appreciated ENT: Moist Mucus Membranes Neck: Trachea midline, Supple Chest/axilla: Normal chest wall appearance and motion. Cardiovascular: Regular rate and rhythm. No edema appreciated Respiratory: Normal respirations, no respiratory distress appreciated Abdomen/GI: Non distended 12:08 Skin: General appearance color normal MS/ Extremity: Moves all extremities, no obvious deformities appreciated, no edema noted to the lower extremities 12:08 Back: pain, that is moderate, of the lumbar area. 12:08 Neuro: Orientation: is normal, Mentation: is normal, Memory: is normal, Extensor houses longus intact bilaterally. 12:08 Psych: Behavior/mood is pleasant, cooperative. Vital Signs: 11:55 BP 124 / 84; Pulse 80; Resp 15; Temp 99.1(O); Pulse Ox 100% on R/A; Weight 86.18 kg; vg1 Height 5 ft. 0 in. (152.40 cm); Pain 10/10; 12:30 BP 124 / 78; Pulse 99; Resp 18; Pulse Ox 94% on R/A; Pain 10/10; eh3 13:30 BP 123 / 80; Pulse 87; Resp 18; Pulse Ox 95% on R/A; Pain 10/10; eh3 14:30 BP 112 / 65; Pulse 101; Resp 16; Pulse Ox 99% on R/A; Pain 5/10; eh3 15:30 BP 121 / 70; Pulse 82; Resp 18; Pulse Ox 97% on R/A; Pain 6/10; eh3 16:30 BP 120 / 67; Pulse 85; Resp 18; Pulse Ox 96% on R/A; Pain 4/10; eh3 17:30 BP 131 / 72; Pulse 80; Resp 18; Pulse Ox 97% on R/A; Pain 4/10; eh3 18:30 BP 144 / 75; Pulse 80; Resp 18; Pulse Ox 94% on R/A; Pain 4/10; eh3 19:24 BP 111 / 76; Pulse 74; Resp 18; Pulse Ox 97% on R/A; Pain 3/10; eh3 11:55 Body Mass Index 37.11 (86.18 kg, 152.40 cm) vg1 MDM: 12:08 Patient medically screened. [facility] 18:53 Data reviewed: vital signs, nurses notes. Counseling: I had a detailed discussion with karely the patient and/or guardian regarding: the historical points, exam findings, and any diagnostic results supporting the discharge/admit diagnosis, lab results, radiology results, the need for outpatient follow up, to return to the emergency department if symptoms worsen or persist or if there are any questions or concerns that arise at home. ED course: Patient was able to ambulate with assistance. MRI revealed a moderate disc herniation. Denies any type of acute compression syndrome. Patient advised to follow spine and otherwise given strict return precautions. Patient understood and agrees plan of care.. 02/10 13:49 Order name: Urine Dipstick-Ancillary; Complete Time: 14:41 EDMS 02/10 12:09 Order name: CT Lumbar Spine Wo Con; Complete Time: 12:41 [facility] 02/10 13:53 Order name: Urine --Ancillary (enter results); Complete Time: 14:41 bd 02/10 15:21 Order name: MRI Lumbar Spine wo Con; Complete Time: 18:47 [facility] 02/10 12:09 Order name: Saline Lock; Complete Time: 12:20 [facility] 02/10 12:44 Order name: Urine Dipstick-Ancillary (obtain specimen); Complete Time: 13:49 [facility] 02/10 12:44 Order name: Urine Test (obtain specimen); Complete Time: 13:49 [facility] 02/10 15:06 Order name: Misc. Order: ambulate; Complete Time: 15:50 [facility] 02/10 18:48 Order name: Misc. Order: walker; Complete Time: 19:24 jmm Administered Medications: 12:39 Drug: morphine 4 mg Route: IVP; Infused Over: 4 mins; Site: right antecubital; eh3 13:49 Follow up: Response: Pain is unchanged, physician notified eh3 12:39 Drug: Zofran (Ondansetron) 4 mg Route: IVP; Site: right antecubital; eh3 13:49 Follow up: Response: No adverse reaction eh3 14:06 Drug: Dilaudid (HYDROmorphone) 0.5 mg Route: IVP; Site: right antecubital; eh3 15:07 Follow up: Response: Pain is decreased eh3 14:06 Drug: Ketorolac 30 mg Route: IVP; Site: right antecubital; eh3 15:07 Follow up: Response: Pain is decreased eh3 15:50 Drug: Decadron - Dexamethasone 10 mg Route: IVP; Site: right antecubital; ld1 16:54 Follow up: Response: No adverse reaction ld1 15:51 Drug: Valium (diazepam) 2 mg Route: IVP; Site: right antecubital; ld1 16:54 Follow up: Response: No adverse reaction; RASS: Drowsy (-1) ld1 16:53 Not Given (Physician Discretion): Valium (diazepam) 5 mg IVP once ld1 Disposition: 23:11 Co-signature as Attending Physician, Wily Muhammad DO I agree with the assessment and ms3 plan of care. Disposition Summary: 02/10/22 18:54 Discharge Ordered Location: Home [facility] Condition: Stable jmm Diagnosis - Low back pain [facility] Followup: jmm - With: Private Physician - When: 1 - 2 days - Reason: Recheck today's complaints, Continuance of care, Re-evaluation by your physician Discharge Instructions: - Discharge Summary Sheet jmm - Acute Back Pain, Adult jmm - Herniated Disk Rehab-[facility] Forms: - Medication Reconciliation Form [facility] - Thank You Letter [facility] - Antibiotic Education [facility] - Prescription Opioid Use [facility] - Work release form 3 Prescriptions: - Zanaflex 4 mg Oral Tablet - take 1 tablet by ORAL route every 8 hours As needed; 20 tablet; Refills: 0, jmm Product Selection Permitted - Diclofenac Sodium 75 mg Oral Tablet Sustained Release - take 1 tablet by ORAL route 2 times per day; 30 tablet; Refills: 0, Product [facility] Selection Permitted - Ultracet 37.5-325 mg Oral Tablet - take 1 tablet by ORAL route every 6 hours - for up to 5 days; do not exceed 8 jmm tablets per day.; 20 tablet; Refills: 0, Product Selection Permitted Signatures: Dispatcher [employer] EDMS Dane Snow PA PA jmm Garcia, Victoria, RN RN vg1 Wily Muhammad DO DO ms3 Karli Romero RN RN ld1 Marjorie Robertson RN RN eh3 Corrections: (The following items were deleted from the chart) 12:23 12:16 Urine Test ordered. [facility]
--- NOTE | 2022-02-10 18:55 | ER ---
Nurse's Notes [facility] Name: Selina Lundberg Age: 27 yrs Sex: Female : 1995 Arrival Date: 02/10/2022 Time: 12:02 Bed 23 Private MD: Diagnosis: Low back pain Presentation: 02/10 11:55 Chief complaint: EMS states: Increase lower back pain that began at 0300 this morning. 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 Pt states 'pinching' sensation at lower back. 11:55 Coronavirus screen: Vaccine status: Patient reports being unvaccinated. Client denies vg1 travel out of the [place] in the last 14 days. Ebola Screen: Patient denies exposure to infectious person. Patient denies travel to an Ebola-affected area in the 21 days before illness onset. Initial Sepsis Screen: Does the patient meet any 2 criteria? No. Patient's initial sepsis screen is negative. Does the patient have a suspected source of infection? No. Patient's initial sepsis screen is negative. Risk Assessment: Do you want to hurt yourself or someone else? Patient reports no desire to harm self or others. Onset of symptoms was February 10, 2022. 11:55 Method Of Arrival: EMS: [facility] vg1 11:55 Acuity: SUNNI 4 vg1 11:55 Care prior to arrival: IV initiated. 18 GA, in the right antecubital area. vg1 Triage Assessment: 11:55 General: Appears in no apparent distress. uncomfortable, Behavior is calm, cooperative. vg1 Pain: Complains of pain in back Pain currently is 10 out of 10 on a pain scale. Pain began this morning 0300. Musculoskeletal: Circulation, motion, and sensation intact. 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 - Social history:: Smoking status: Patient denies any tobacco usage or history of. Screenin:55 Abuse screen: Denies threats or abuse. Nutritional screening: No deficits noted. vg1 Tuberculosis screening: No symptoms or risk factors identified. Fall Risk No fall in past 12 months (0 pts). No secondary diagnosis (0 pts). IV access (20 points). Ambulatory Aid- None/Bed Rest/Nurse Assist (0 pts). Gait- Impaired (20 pts.). Mental Status- Oriented to own ability (0 pts). Total Doe Fall Scale indicates Low Risk Score (25-44 pts). Fall prevention measures have been instituted. Side Rails Up X 2 Placed close to Nursing Station Family Present and informed to notify staff if they need to leave bedside. Assessment: 13:50 General: Appears in no apparent distress. uncomfortable, Behavior is cooperative, eh3 appropriate for age. Pain: Complains of pain in left low back and right low back Pain currently is 9 out of 10 on a pain scale. Quality of pain is described as sharp, shooting, stabbing, squeezing, Pain began 1 day ago. Is continuous, Alleviated by rest, Aggravated by increased activity, repositioning, weight bearing, Noted to be grimacing, resistant to movement. Neuro: Level of Consciousness is awake, alert, obeys commands, Oriented to person, place, time, situation. Cardiovascular: Capillary refill < 3 seconds Patient's skin is warm and dry. Respiratory: Airway is patent Respiratory effort is even, unlabored. GI: No deficits noted. : No deficits noted. EENT: No deficits noted. Derm: No deficits noted. Musculoskeletal: Circulation, motion, and sensation intact. Range of motion: limited in back. 14:50 Reassessment: Patient and/or family updated on plan of care and expected duration. Pain eh3 level reassessed. Patient is alert, oriented x 3, equal unlabored respirations, skin warm/dry/pink. Patient states symptoms have improved. Pain 5/10. 15:08 Reassessment: Attempted to ambulate pt to bathroom, unsuccessful b/c pt complaining of eh3 severe pain in lower back and unable to ambulate, notified ERP. 16:00 Reassessment: Patient and/or family updated on plan of care and expected duration. Pain eh3 level reassessed. Patient is alert, oriented x 3, equal unlabored respirations, skin warm/dry/pink. 17:03 Reassessment: Patient and/or family updated on plan of care and expected duration. Pain eh3 level reassessed. Patient is alert, oriented x 3, equal unlabored respirations, skin warm/dry/pink. Pt ambulated with assist x1 to the restroom and back. Tolerated well. States pain was not increased while ambulating. Vital Signs: 11:55 BP 124 / 84; Pulse 80; Resp 15; Temp 99.1(O); Pulse Ox 100% on R/A; Weight 86.18 kg; vg1 Height 5 ft. 0 in. (152.40 cm); Pain 10/10; 12:30 BP 124 / 78; Pulse 99; Resp 18; Pulse Ox 94% on R/A; Pain 10/10; eh3 13:30 BP 123 / 80; Pulse 87; Resp 18; Pulse Ox 95% on R/A; Pain 10/10; eh3 14:30 BP 112 / 65; Pulse 101; Resp 16; Pulse Ox 99% on R/A; Pain 5/10; eh3 15:30 BP 121 / 70; Pulse 82; Resp 18; Pulse Ox 97% on R/A; Pain 6/10; eh3 16:30 BP 120 / 67; Pulse 85; Resp 18; Pulse Ox 96% on R/A; Pain 4/10; eh3 17:30 BP 131 / 72; Pulse 80; Resp 18; Pulse Ox 97% on R/A; Pain 4/10; eh3 18:30 BP 144 / 75; Pulse 80; Resp 18; Pulse Ox 94% on R/A; Pain 4/10; eh3 19:24 BP 111 / 76; Pulse 74; Resp 18; Pulse Ox 97% on R/A; Pain 3/10; eh3 11:55 Body Mass Index 37.11 (86.18 kg, 152.40 cm) vg1 ED Course: 11:55 Arm band placed on. vg1 11:55 Patient has correct armband on for positive identification. Bed in low position. Call 1 light in reach. Side rails up X2. Adult w/ patient. Pulse ox on. NIBP on. 12:00 Report given to Marjorie YOON. 1 12:02 Patient arrived in ED. 1 12:03 Dane Snow PA is PHCP. [facility] 12:03 Wily Muhammad DO is Attending Physician. jmm 12:11 Екатерина Badillo, RN is Primary Nurse. vg1 12:15 Triage completed. vg1 12:31 CT Lumbar Spine Wo Con In Process Unspecified. EDMS 12:45 Primary Nurse role handed off by Екатерина Badillo, RN eh3 12:45 Marjorie Robertson, RN is Primary Nurse. eh3 13:52 Assisted with bedpan. Repositioned patient. Cleaned of incontinence. Linen changed. ld1 14:00 Maintain EMS IV. Dressing intact. Good blood return noted. Site clean \\T\\ dry. Gauge \\T\\ ld 1 site: 20G RAC. 15:[address] per pt request. eh3 18:21 MRI Lumbar Spine wo Con In Process Unspecified. EDMS 19:24 No provider procedures requiring assistance completed. IV discontinued, intact, eh3 bleeding controlled, No redness/swelling at site. Administered Medications: 12:39 Drug: morphine 4 mg Route: IVP; Infused Over: 4 mins; Site: right antecubital; eh3 13:49 Follow up: Response: Pain is unchanged, physician notified eh3 12:39 Drug: Zofran (Ondansetron) 4 mg Route: IVP; Site: right antecubital; eh3 13:49 Follow up: Response: No adverse reaction eh3 14:06 Drug: Dilaudid (HYDROmorphone) 0.5 mg Route: IVP; Site: right antecubital; eh3 15:07 Follow up: Response: Pain is decreased eh3 14:06 Drug: Ketorolac 30 mg Route: IVP; Site: right antecubital; eh3 15:07 Follow up: Response: Pain is decreased eh3 15:50 Drug: Decadron - Dexamethasone 10 mg Route: IVP; Site: right antecubital; ld1 16:54 Follow up: Response: No adverse reaction ld1 15:51 Drug: Valium (diazepam) 2 mg Route: IVP; Site: right antecubital; ld1 16:54 Follow up: Response: No adverse reaction; RASS: Drowsy (-1) ld1 16:53 Not Given (Physician Discretion): Valium (diazepam) 5 mg IVP once ld1 Medication: 13:50 VIS not applicable for this client. eh3 Outcome: 18:54 Discharge ordered by . karely 19:25 Discharged to home ambulatory, with family. eh3 19:25 Condition: stable 19:25 Discharge instructions given to patient, family, Instructed on discharge instructions, follow up and referral plans. medication usage, Demonstrated understanding of instructions, follow-up care, medications. 19:25 Patient left the ED. eh3 Signatures: Dispatcher [employer] EDMS Dane Snow PA PA jmm Garcia, Victoria, RN RN 1 Karli Romero RN RN 1 Marjorie Robertson RN RN eh3 Corrections: (The following items were deleted from the chart) 12:22 11:55 Chief complaint: EMS states: Increase lower back pain that began at 0300 this vg1 morning. 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 Pt states 'pinching' sensation at lower back. vg1 13:53 13:50 Pain: Complains of pain in back Pain currently is 9 out of 10 on a pain scale. eh3 Quality of pain is described as sharp, shooting, stabbing, squeezing, Pain began 1 day ago. Is continuous, Alleviated by rest, Aggravated by increased activity, repositioning, weight bearing, Noted to be grimacing, resistant to movement, eh3 14:06 14:05 Ketorolac 30 mg IVP in left antecubital eh3 eh3
[2022-02-10 21:16] VITALS: TEMP 99.1
[2022-02-10 21:32] VITALS: BP 111/76; O2SAT 97
== END 2022-02-10 19:25 | disposition home or self-care (01) ==
LOC: ER 11:55
DX: M54.50 Low back pain, unspecified (principal); I10 Essential (primary) hypertension
CPT/HCPCS: 81025; 81003; 72131; 72148; 96375; 96374; 99284; J3360; J1100; J1170; J2405

== ENCOUNTER 2024-02-06 13:59 | Emergency (ER) | payer SELFPAY ==
--- OUTSIDE RECORDS SUMMARY | 2024-02-06 14:05 | XMS REPORT | Continuity of Care Document ---
Author Name Unknown Address [address] [facility] [address] [place] [address] [facility] Address [address] [facility]. [address] [place] [address] Care Team Providers Care Butcher Or Smallgoods Maker Name Role Phone Amador Quezada Primary Care Physician MARILEE MANCERA Attending Clinician Unavailable Marilee Mancera MD Attending Clinician [phone] Pob, [facility] Attending Clinician Unavailabl e Doctor Unassigned, [place] Attending Clinician U navailable Nurse, [facility] Attending Clinician Un available Tima Balderas MD Attending Clinicia n KARLA MONTOYA Attending Clinician Unav ailable Ultrasound, Ang-Mfm Attending Clinician UnavailKarla Soliman MD Attending Clinician + CONSTANCE YATES Attending Clinician Unavailable Constance Yates PA-C Attending Clinician [phone], [facility] Attending Clinician Unavailable UNKNOWN, ATTENDING Attending Clinician Unavailab Cherelle Cuello MD Attending Clinician + CHERELLE MICHEL Attending Clinician Unav ailable Only, [facility] Test Attending Clinician Unavailable Ultrasound, [facility] Attending Clinician UnavailJeancarlos Huddleston MD Attending Clinician [phone] MARILEE MANCERA Admitting Clinician Unavailable Mancera MD, Marilee Cam Admitting Clinician [phone] Payers Payer Name Policy Type Policy Number Effective Date Expirati on Date Source [facility] [id number] 2019 00:00:00 [facility] [id number] 2022 00:00:00 [employer] [id number] 2019 00:00:00 Problems Condition Name Condition Details Condition Category Status Onset Date Resolution Date Last Treatment Date Treating Clinician Comments Source Status post bilateral salpingect estiven Status post bilateral salpingect estiven Disease Active 9-19 00:00: 00 [facility] Encounter for tubal ligation Encounter for tubal ligation Disease Active 8-31 00:00: 00 [facility] History of severe pre-eclamp ciera History of severe pre-eclamp ciera Disease Active 8-30 00:00: 00 [facility] 36 weeks gestation of 36 weeks gestation of Disease Active 8- 00:00: 00 [facility] Severe pre-eclamp ciera in third trimester Severe pre-eclamp ciera in third trimester Disease Active 8- 00:00: 00 [facility] High-risk in third trimester High-risk in third trimester Disease Active 1-23 00:00: 00 [facility] Obesity in , antepartum Obesity in , antepartum Disease Active 1-23 00:00: 00 [facility] 39 weeks gestation of 39 weeks gestation of Disease Active 2019-06 00:00: 00 [facility] Encounter for elective induction of labor Encounter for elective induction of labor Disease Active 2019-06 00:00: 00 [facility] Positive GBS test Positive GBS test Disease Active 2019-06 00:00: 00 [facility] Elevated BP without diagnosis of hypertensi on Elevated BP without diagnosis of hypertensi on Disease Active 2019-06 00:00: 00 [facility] Mild pre-eclamp ciera in third trimester Mild pre-eclamp ciera in third trimester Disease Active 2019-06 00:00: 00 [facility] Liveborn , of jones , born in hospital by vaginal delivery Liveborn infant, of jones , born in hospital by vaginal delivery Disease Active 2019-06 00:00: 00 [facility] Normal in third trimester Normal in third trimester Disease Active 10-24 00:00: 00 [facility] Obesity (BMI 30-39.9) Obesity (BMI 30-39.9) Disease Active 10-10 00:00: 00 [facility] examinatio n or test, positive result examinatio n or test, positive result Disease Active 10-10 00:00: 00 [facility] Nausea and vomiting during prior to 22 weeks gestation Nausea and vomiting during prior to 22 weeks gestation Disease Active 10-10 00:00: 00 [facility] Allergies, Adverse Reactions, Alerts Allergy Name Allergy Type Status Severity Reaction(s) Onset Date Inactive Date Treating Clinician Comments Source NO KNOWN ALLERGIE S Drug Class Active [facility] Social History Social Habit Start Date Stop Date Quantity Comments Source ASSERTION 2022-05-06 00:00:00 [facility] History SDOH Alcohol Std Drinks [facility] History SDOH Alcohol Binge [facility] History SDOH Alcohol Comment [place] [facility] History of tobacco use Passive smoker [facility] Gender identity [facility] Alcohol intake 2023-03-10 00:00:00 2023-03-10 00:00:00 0 /d [facility] History of Social function 2023-02-22 00:00:00 2023-02-22 00:00:00 [facility] Exposure to SARS-CoV-2 (event) 2022-10-01 00:00:00 2022-10-11 15:59:00 Not sure [facility] Tobacco use and exposure 2022-06-28 00:00:00 2022-06-28 00:00:00 Smokeless tobacco non-user [facility] History SDOH Financial 2020-05-13 00:00:00 2020-05-13 00:00:00 5 [facility] History SDOH Food Worry 2020-05-13 00:00:00 2020-05-13 00:00:00 1 [facility] History SDOH Food Scarcity 2020-05-13 00:00:00 2020-05-13 00:00:00 1 [facility] History SDOH Transport Med 2020-05-13 00:00:00 2020-05-13 00:00:00 2 [facility] History SDOH Transport Non-Med 2020-05-13 00:00:00 2020-05-13 00:00:00 2 [facility] History SDOH Alcohol Frequency 2019-10-11 00:00:00 2019-10-11 00:00:00 2 [facility] Sex Assigned At 1995 00:00:00 1995 00:00:00 [facility] Smoking Status Start Date Stop Date Source Never smoked tobacco [facility] Medications Ordered Medication Name Filled Medication Name Start Date Stop Date Current Medication? Ordering Clinician Indication Dosage Frequency Signature (SIG) Comments Components Source HYDROcodone -acetaminop hen (NORCO 5) 5-325 mg tablet 1 tablet 02-22 14:00: 00 02-22 14:30 :00 No 1{tbl} 1 tablet, Oral, ONCE, 1 dose, On Tue02/22/23 at 0900, Routine, PACU [facility] HYDROmorphO ne (DILAUDID) injection 0.2 mg 02-22 13:50: 41 Yes .2mg 0.2 mg, Slow IV Push, Q5MIN PRN, 10 doses, Starting on Tue02/22/23 at 0850, Until Discontinu ed, Routine, Pain (scale 7-10), PACU
Us e approved by (Faculty): PACU USE -ANESTHESI A SERVICE-HY DROMORPHON E INJECTIONS [facility] FENTanyl PF (SUBLIMAZE (PF)) injection 25 mcg 02-22 13:50: 41 Yes 25ug 25 mcg, Slow IV Push, Q5MIN PRN, 4 doses, Starting on Tue02/22/23 at 0850, Until Discontinu ed, Routine, Pain (scale 4-6), PACU [facility] ondansetron (ZOFRAN (PF)) injection 4 mg 02-22 13:50: 41 Yes 4mg 4 mg, Slow IV Push, PRN, 1 dose, Starting on Tue02/22/23 at 0850, Until Discontinu ed, Routine, Nausea and Vomiting (N/V), PACU [facility] water for irrigation irrigation solution 02-22 13:30: 00 Yes PRN, Starting on Tue02/22/23 at 0830, Until Discontinu ed, Routine, Intra-op [facility] bupivacaine (preserv free) (SENSORCAIN E MPF) 0.25 % (2.5 mg/mL) injection 02-22 13:16: 00 Yes PRN, Starting on Tue02/22/23 at 0816, Until Discontinu ed, Routine, Intra-op [facility] lactated ringers IV infusion 1,000 mL 02-22 12:15: 00 02-22 12:22 :00 No 1000mL at 42 mL/hr, 1,000 mL, IV Infusion, ONCE, 1 dose, On Tue02/22/23 at 0715, Routine, DSU Pre-op [facility] ibuprofen 600 mg tablet 02-22 00:00: 00 03-10 00:00 :00 No [id number] 600mg Take 1 tablet by mouth every 6 (six) hours as needed for Pain (scale 1-3) or Pain (scale 4-6). [facility] simethicone 80 mg chewable tablet 02-22 00:00: 00 03-10 00:00 :00 No [id number] 80mg Take 1 tablet by mouth after meals and at bedtime. [facility] acetaminoph en (TYLENOL) 325 mg tablet 02-22 00:00: 00 03-10 00:00 :00 No [id number] 650mg Take 2 tablets by mouth every 6 (six) hours as needed for Pain (scale 1-3) or Pain (scale 4-6). [facility] HYDROcodone -acetaminop hen 5-325 mg tablet 9-19 00:00: 00 02-24 04:59 :00 No [id number] 1{tbl} Take 1 tablet by mouth every 6 (six) hours as needed for Pain (scale 7-10) for up to 1 day. Indication s: acute pain [facility] NIFEdipine ER 30 mg tablet 04 00:00: 00 02-15 00:00 :00 No [id number] 30mg Take 1 tablet by mouth in the morning. [facility] FOLIC ACID ORAL 01-06 09:17: 16 01-06 00:00 :00 No Take by mouth. [facility] lactated ringers IV infusion 1,000 mL 01-06 00:45: 00 01-06 00:39 :00 No 1000mL at 75 mL/hr, 1,000 mL, IV Infusion, ONCE, 1 dose, On Tue01/05/23 at 1945, ROBERT [facility] docusate 100 mg capsule 01-06 00:00: 00 02-15 00:00 :00 No [id number] 200mg Take 2 capsules by mouth once daily as needed for Constipati on. [facility] ferrous sulfate 325 mg (65 mg iron) tablet 01-06 00:00: 00 02-15 00:00 :00 No [id number] 325mg Take 1 tablet by mouth in the morning and 1 tablet in the evening. [facility] ibuprofen 600 mg tablet 01-06 00:00: 00 02-15 00:00 :00 No [id number] 600mg Take 1 tablet by mouth every 6 (six) hours as needed (Pain). Take with food or milk. [facility] PNV 67-iron ps-folate no.1-dha (VITAFOL ULTRA) 29 mg iron- 1 mg-200 mg Cap - 00:00: 00 02-15 00:00 :00 No [id number] 1{tbl} Take 1 tablet by mouth in the morning. If insurance does not cover can substituen t with any other mediation that contains components . [facility] vitamin w/FA tablet 01-06 00:00: 00 01-06 00:00 :00 No [id number] 1{tbl} Take 1 tablet by mouth in the morning. [facility] NIFEdipine ER tablet 30 mg 01-05 14:00: 00 Yes 30mg 30 mg, Oral, DAILY, First dose on Tue01/05/23 at 0900, Until Discontinu ed, Routine [facility] rho(D) immune globulin (RHOGAM) syringe 300 mcg 01-05 13:51: 02 Yes 300ug 300 mcg, Intramuscu lar, ONCE, For 1 dose, Conditiona l, Routine [facility] HYDROcodone -acetaminop hen (NORCO 5) 5-325 mg tablet 1 tablet 01-05 13:50: 56 Yes 1{tbl} 1 tablet, Oral, Q6HPRN, Starting on Tue01/05/23 at 0850, Until Discontinu ed, Routine, Pain (scale 7-10) [facility] ibuprofen (IBU) tablet 600 mg 01-05 13:50: 56 Yes 600mg 600 mg, Oral, Q6HPRN, Starting on Tue01/05/23 at 0850, Until Discontinu ed, Routine, Pain (scale 4-6) [facility] acetaminoph en (TYLENOL) tablet 650 mg 01-05 13:50: 56 Yes 650mg 650 mg, Oral, Q6HPRN, Starting on Tue01/05/23 at 0850, Until Discontinu ed, Routine, Pain (scale 1-3) [facility] diphenhydrA MINE (BENADRYL) tablet 25 mg 01-05 13:50: 56 Yes 25mg 25 mg, Oral, Q6HPRN, Starting on Tue01/05/23 at 0850, Until Discontinu ed, Routine, Sleep, Itching [facility] ondansetron (ZOFRAN (PF)) injection 4 mg 01-05 13:50: 56 Yes 4mg 4 mg, Slow IV Push, Q8HPRN, Starting on Tue01/05/23 at 0850, Until Discontinu ed, Routine, Nausea and Vomiting (N/V) [facility] simethicone (GAS RELIEF (SIMETHICON E)) chewable tablet 160 mg 01-05 13:50: 56 Yes 160mg 160 mg, Oral, PC+HSPRN, Starting on Tue01/05/23 at 0850, Until Discontinu ed, Routine, Gas [facility] docusate (COLACE) capsule 200 mg 01-05 13:50: 56 Yes 200mg 200 mg, Oral, QDAILYPRN, Starting on Tue01/05/23 at 0850, Until Discontinu ed, Routine, Constipati on [facility] magnesium hydroxide (MILK OF MAGNESIA) 400 mg/5 mL suspension 30 mL 01-05 13:50: 56 Yes 30mL 30 mL, Oral, QDAILYPRN, Starting on Tue01/05/23 at 0850, Until Discontinu ed, Routine, Constipati on [facility] benzocaine- menthol (DERMOPLAST ) 20-0.5 % topical spray 01-05 13:50: 56 Yes Topical, PRN, Starting on Tue01/05/23 at 0850, Until Discontinu ed, Routine, Perineum discomfort [facility] lactated ringers IV infusion 1,000 mL 01-05 12:15: 00 01-05 12:20 :00 No 1000mL at 125 mL/hr, 1,000 mL, IV Infusion, ONCE, 1 dose, On Tue01/05/23 at 0715, ROBERT [facility] oxytocin (PITOCIN) 30 units in NS 500 mL IV infusion 01-05 12:04: 11 01-05 13:51 :01 No 300mL/h 300 mL/hr, IV Infusion, SEE-INSTRU CTIONS, Starting on Tue01/05/[address] at 300 mL/hr for 1 hr then 150 mL/hr for 1 hr. For post delivery uterotonic .
[facility] acetaminoph en (TYLENOL) tablet 650 mg 01-05 11:00: 00 01-05 10:48 :00 No 650mg 650 mg, Oral, ONCE NOW, 1 dose, On Tue01/05/23 at 0600, Routine [facility] fentaNYL-ro pivacaine 2 mcg/mL-0.1 % (PF) in NS 200 mL epidural infusion RTU 01-05 09:31: 00 01-05 13:18 :51 No Epidural, CONTINUOUS PRN, Starting on Tue01/05/23 at 0431, Until Tue01/05/23 at 08, Routine, Intra-op [facility] lidocaine-e pinephrine (XYLOCAINE W/EPINEPHRI NE) 1.5 %-1:200,000 injection 01-05 09:23: 00 01-05 13:18 :51 No Intraderma l, ONCE INTRA PROCEDURE, Starting on Tue01/05/23 at 0423, Until Tue01/05/23 at 08, Routine, Intra-op [facility] FOLIC ACID ORAL 01-05 07:07: 21 Yes Take by mouth. [facility] oxytocin (PITOCIN) 30 units in NS 500 mL IV infusion 01-04 20:23: 26 01-05 13:51 :01 No 2mU/min at 2-40 mL/hr, IV Infusion, TITRATE, Starting on Tue01/04/23 at 1523, Until Tue01/05/23 at 0851, ROBERT [facility] magnesium sulfate in water for injection 20 gram/500 mL (4 %) IV infusion 01-04 20:00: 00 Yes 2g/h 2 g/hr (50 mL/hr), IV Infusion, CONTINUOUS , Starting on Tue01/04/23 at 1500, [facility] 01-04 19:30: 00 01-05 13:51 :01 No 1000mL at 75 mL/hr, IV Infusion, CONTINUOUS , Starting on Tue01/04/23 at 1430, Until Tue01/05/23 at 0851, ROBERT [facility] lactated ringers IV infusion 500 mL 01-04 19:21: 40 01-05 13:51 :01 No 500mL at 999 mL/hr, 500 mL, IV Infusion, PRN - SEE INSTRUCTIO NS, Starting on Tue01/04/23 at 1421, Until Tue01/05/23 at 0851, Routine [facility] LORazepam (ATIVAN) injection 2 mg 01-04 19:20: 56 Yes 2mg 2 mg, Intravenou s, PRN - SEE INSTRUCTIO NS, 2 doses, Starting on Tue01/04/23 at 1420, Until Discontinu ed, Routine, Seizures [facility] calcium gluconate 100 mg/mL (10%) injection 1,000 mg 01-04 19:20: 23 Yes 1000mg 1,000 mg, Slow IV Push, PRN - SEE INSTRUCTIO NS, Starting on Tue01/04/23 at 1420, Until Discontinu ed, Routine, magnesium toxicity [facility] magnesium sulfate 4 mEq/mL (50 %) injection 32.48 mEq 01-04 19:20: 23 Yes 4g 32.48 mEq (4 g), Slow IV Push, PRN - SEE INSTRUCTIO NS, Starting on Tue01/04/23 at 1420, Until Discontinu ed, Routine, For seizure activity (patient not on magnesium sulfate) [facility] magnesium sulfate 4 mEq/mL (50 %) injection 16.24 mEq 01-04 19:20: 23 Yes 2g 16.24 mEq (2 g), Slow IV Push, PRN - SEE INSTRUCTIO NS, 2 doses, Starting on Tue01/04/23 at 1420, Until Discontinu ed, Routine, For seizure activity (patient already on magnesium sulfate) [facility] cephALEXin (KEFLEX) capsule 250 mg 01-04 17:00: 00 01-05 13:51 :01 No 250mg 250 mg, Oral, Q6H, 28 doses, First dose on Tue01/04/23 at 1200, Last dose on Tue01/11/23 at 0600, ROBERT
Re ason for Anti-Infec tive: Documented Infection< br>Documen keshav Infection Site: Urine
D uration of Therapy: 7 days [facility] betamethaso ne acet,sod phos (CELESTONE SOLUSPAN) 6 mg/mL injection 12 mg 01-04 02:45: 00 01-05 13:51 :01 No 12mg 12 mg, Intramuscu lar, Q24H, First dose on Tue01/03/23 at 2145, Until Discontinu ed, Routine [facility] cefTRIAXone (ROCEPHIN) 2,000 mg in NaCl 0.9% (NS) 100 mL MINI-BAG 01-03 23:15: 00 01-03 23:22 :44 No 2000mg 2,000 mg, IV Piggyback, Q24H ABX, 1 dose, First dose on Tue01/03/23 at 1815, Administer over 30 Minutes, 100 mL
Reas on for Anti-Infec tive: Documented Infection< br>Documen keshav Infection Site: Urine
D uration of Therapy: 7 days [facility] acetaminoph en (TYLENOL) tablet 650 mg 01-03 22:03: 15 01-03 22:38 :00 No 650mg 650 mg, Oral, Q6HPRN, 1 dose, Starting on Tue01/03/23 at 1703, Until Tue01/03/23 at 1738, Routine, Pain (scale 4-6) [facility] FOLIC ACID ORAL 01-03 16:46: 53 Yes Take by mouth. [facility] FOLIC ACID ORAL 10-11 16:06: 44 Yes Take by mouth. [facility] FOLIC ACID ORAL 09-09 16:15: 02 Yes Take by mouth. [facility] FOLIC ACID ORAL 06-28 15:00: 28 Yes Take by mouth. [facility] No known medications 06-12 18:01: 41 No [facility] vits62/FA/o m3/dha/epa ( GUMMY ORAL) 2019-06 12:59: 42 05-14 00:00 :00 No Take by mouth. [facility] vitamin w/FA tablet 2019-06 00:00: 00 06-12 00:00 :00 No [id number] 102 1{tbl} Take 1 tablet by mouth daily. [facility] docusate calcium 240 mg capsule 2019-06 00:00: 00 06-12 00:00 :00 No [id number] 102 240mg Take 1 capsule by mouth once daily as needed for Constipati on. [facility] ferrous sulfate 325 mg (65 mg iron) tablet 2019-06 00:00: 00 06-12 00:00 :00 No [id number] 102 325mg Take 1 tablet by mouth 2 (two) times daily. [facility] ibuprofen 600 mg tablet 2019-06 00:00: 00 06-12 00:00 :00 No [id number] 102 600mg Take 1 tablet by mouth every 6 (six) hours as needed (Pain). Take with food or milk. [facility] rho(D) immune globulin (RHOGAM) syringe 300 mcg 2019-06 19:53: 13 Yes 300ug 300 mcg, Intramuscu lar, ONCE, For 1 dose, Conditiona l, Routine [facility] HYDROcodone -acetaminop hen (NORCO 5) 5-325 mg tablet 1 tablet 2019-06 19:53: 07 Yes 1{tbl} 1 tablet, Oral, Q6HPRN, Starting Tue05/13/20 at 1353, Until Discontinu ed, Routine, Pain (scale 7-10) [facility] ibuprofen (IBU) tablet 600 mg 2019-06 19:53: 07 Yes 600mg 600 mg, Oral, Q6HPRN, Starting Tue05/13/20 at 1353, Until Discontinu ed, Routine, Pain (scale 4-6) [facility] ondansetron (ZOFRAN (PF)) injection 4 mg 2019-06 19:53: 07 Yes 4mg 4 mg, Slow IV Push, Q8HPRN, Starting Tue05/13/20 at 1353, Until Discontinu ed, Routine, Nausea and Vomiting (N/V) [facility] simethicone (GAS RELIEF (SIMETHICON E)) chewable tablet 160 mg 2019-06 19:53: 07 Yes 160mg 160 mg, Oral, PC+HSPRN, Starting Tue05/13/20 at 1353, Until Discontinu ed, Routine, Gas [facility] docusate calcium (SURFAK) capsule 240 mg 2019-06 19:53: 07 Yes 240mg 240 mg, Oral, QDAILYPRN, Starting Tue05/13/20 at 1353, Until Discontinu ed, Routine, Constipati on [facility] magnesium hydroxide (MILK OF MAGNESIA) 400 mg/5 mL suspension 30 mL 2019-06 19:53: 07 Yes 30mL 30 mL, Oral, QDAILYPRN, Starting Tue05/13/20 at 1353, Until Discontinu ed, Routine, Constipati on [facility] acetaminoph en (TYLENOL) tablet 650 mg 2019-06 19:53: 06 Yes 650mg 650 mg, Oral, Q6HPRN, Starting Tue05/13/20 at 1353, Until Discontinu ed, Routine, Pain (scale 1-3) [facility] diphenhydrA MINE (BENADRYL) tablet 25 mg 2019-06 19:53: 06 Yes 25mg 25 mg, Oral, Q6HPRN, Starting Tue05/13/20 at 1353, Until Discontinu ed, Routine, Sleep, Itching [facility] benzocaine- menthol (DERMOPLAST ) 20-0.5 % topical spray 2019-06 19:53: 06 Yes Topical, PRN, Starting Tue05/13/20 at 1353, Until Discontinu ed, Routine, Perineum discomfort [facility] LR 1000 mL + oxytocin 20 units IV Solution 2019-06 18:30: 00 05-13 18:30 :00 No at 125 mL/hr, IV Infusion, ONCE, 1 dose, 05/13/20 at 1230, Routine [facility] D5W-LR IV infusion 1,000 mL 2019-06 10:15: 00 05-13 19:53 :14 No 1000mL at 125 mL/hr, IV Infusion, CONTINUOUS , Starting 05/13/20 at 0415, Until 05/13/20 at 1353, Routine [facility] lactated ringers IV infusion 500 mL 2019-06 10:15: 00 05-13 10:30 :00 No 500mL at 999 mL/hr, 500 mL, IV Infusion, ONCE, 1 dose, 05/13/20 at 0415, Routine [facility] LR 1000 mL + oxytocin 20 units IV Solution 2019-06 10:09: 02 05-13 19:53 :14 No 2mU/min at 6-120 mL/hr, IV Infusion, TITRATE, Starting 05/13/20 at 0409, Until 05/13/20 at 1353, ROBERT [facility] fluconazole 200 mg tablet 2019-06 00:00: 00 04-30 05:59 :00 No [id number] 200mg Take 1 tablet by mouth daily for 1 day. [facility] vits62/FA/o m3/dha/epa ( GUMMY ORAL) 507 19:34: 22 Yes Take by mouth. [facility] neomycin-po lymyxin-hyd rocort 3.5 mg-10,000 unit/mL-1 % ear drops,susp 4-15 00:00: 00 No 4mg/mL- unit/mL -% Immunizations Ordered Immunization Name Filled Immunization Name Date Status Comments Source TDAP 2022-11-15 00:00:00 Completed [facility] TDAP 2022-11-15 00:00:00 Completed [facility] TDAP 2022-11-15 00:00:00 Completed [facility] TDAP 2022-11-15 00:00:00 Completed [facility] TDAP 2022-11-15 00:00:00 Completed [facility] TDAP 2022-11-15 00:00:00 Completed [facility] TDAP 2022-11-15 00:00:00 Completed [facility] TDAP 2022-11-15 00:00:00 Completed [facility] TDAP 2022-11-15 00:00:00 Completed [facility] TDAP 2022-11-15 00:00:00 Completed [facility] TDAP 2022-11-15 00:00:00 Completed [facility] TDAP 2022-11-15 00:00:00 Completed [facility] TDAP 2022-11-15 00:00:00 Completed [facility] TDAP 2022-11-15 00:00:00 Completed [facility] TDAP 2022-11-15 00:00:00 Completed [facility] TDAP 2022-11-15 00:00:00 Completed [facility] TDAP 2022-11-15 00:00:00 Completed [facility] TDAP 2022-11-15 00:00:00 Completed [facility] TDAP 2022-11-15 00:00:00 Completed [facility] TDAP 2022-11-15 00:00:00 Completed [facility] TDAP 2022-11-15 00:00:00 Completed [facility] TDAP 2020-02-27 00:00:00 Completed [facility] TDAP 2020-02-27 00:00:00 Completed [facility] TDAP 2020-02-27 00:00:00 Completed [facility] TDAP 2020-02-27 00:00:00 Completed [facility] TDAP 2020-02-27 00:00:00 Completed [facility] TDAP 2020-02-27 00:00:00 Completed [facility] TDAP 2020-02-27 00:00:00 Completed [facility] TDAP 2020-02-27 00:00:00 Completed [facility] TDAP 2020-02-27 00:00:00 Completed [facility] TDAP 2020-02-27 00:00:00 Completed [facility] TDAP 2020-02-27 00:00:00 Completed [facility] TDAP 2020-02-27 00:00:00 Completed [facility] TDAP 2020-02-27 00:00:00 Completed [facility] TDAP 2020-02-27 00:00:00 Completed [facility] TDAP 2020-02-27 00:00:00 Completed [facility] TDAP 2020-02-27 00:00:00 Completed [facility] TDAP 2020-02-27 00:00:00 Completed [facility] TDAP 2020-02-27 00:00:00 Completed [facility] TDAP 2020-02-27 00:00:00 Completed [facility] TDAP 2020-02-27 00:00:00 Completed [facility] TDAP 2020-02-27 00:00:00 Completed [facility] TDAP 2020-02-27 00:00:00 Completed [facility] TDAP 2020-02-27 00:00:00 Completed [facility] TDAP 2020-02-27 00:00:00 Completed [facility] TDAP 2020-02-27 00:00:00 Completed [facility] TDAP 2020-02-27 00:00:00 Completed [facility] TDAP 2020-02-27 00:00:00 Completed [facility] TDAP 2020-02-27 00:00:00 Completed [facility] TDAP 2020-02-27 00:00:00 Completed [facility] TDAP 2020-02-27 00:00:00 Completed [facility] TDAP 2020-02-27 00:00:00 Completed [facility] TDAP 2020-02-27 00:00:00 Completed [facility] TDAP 2020-02-27 00:00:00 Completed [facility] TDAP 2020-02-27 00:00:00 Completed [facility] TDAP 2020-02-27 00:00:00 Completed [facility] TDAP 2020-02-27 00:00:00 Completed [facility] TDAP 2020-02-27 00:00:00 Completed [facility] TDAP 2020-02-27 00:00:00 Completed [facility] TDAP 2020-02-27 00:00:00 Completed [facility] TDAP 2020-02-27 00:00:00 Completed [facility] TDAP 2020-02-27 00:00:00 Completed [facility] TDAP 2020-02-27 00:00:00 Completed [facility] TDAP 2020-02-27 00:00:00 Completed [facility] TDAP 2020-02-27 00:00:00 Completed [facility] TDAP 2020-02-27 00:00:00 Completed [facility] TDAP 2020-02-27 00:00:00 Completed [facility] TDAP 2020-02-27 00:00:00 Completed [facility] TDAP 2020-02-27 00:00:00 Completed [facility] TDAP 2020-02-27 00:00:00 Completed [facility] TDAP 2020-02-27 00:00:00 Completed [facility] TDAP 2020-02-27 00:00:00 Completed [facility] TDAP 2020-02-27 00:00:00 Completed [facility] TDAP 2020-02-27 00:00:00 Completed [facility] TDAP 2013-01-02 00:00:00 Completed [facility] TDAP 2013-01-02 00:00:00 Completed [facility] TDAP 2013-01-02 00:00:00 Completed [facility] TDAP 2013-01-02 00:00:00 Completed [facility] TDAP 2013-01-02 00:00:00 Completed [facility] TDAP 2013-01-02 00:00:00 Completed [facility] TDAP 2013-01-02 00:00:00 Completed [facility] TDAP 2013-01-02 00:00:00 Completed [facility] TDAP 2013-01-02 00:00:00 Completed [facility] TDAP 2013-01-02 00:00:00 Completed [facility] TDAP 2013-01-02 00:00:00 Completed [facility] TDAP 2013-01-02 00:00:00 Completed [facility] TDAP 2013-01-02 00:00:00 Completed [facility] TDAP 2013-01-02 00:00:00 Completed [facility] TDAP 2013-01-02 00:00:00 Completed [facility] TDAP 2013-01-02 00:00:00 Completed [facility] TDAP 2013-01-02 00:00:00 Completed [facility] TDAP 2013-01-02 00:00:00 Completed [facility] TDAP 2013-01-02 00:00:00 Completed [facility] TDAP 2013-01-02 00:00:00 Completed [facility] TDAP 2013-01-02 00:00:00 Completed [facility] Tdap 2013-01-02 00:00:00 Completed [facility] TDAP 2013-01-02 00:00:00 Completed [facility] TDAP 2013-01-02 00:00:00 Completed [facility] TDAP 2013-01-02 00:00:00 Completed [facility] TDAP 2013-01-02 00:00:00 Completed [facility] TDAP 2013-01-02 00:00:00 Completed [facility] TDAP 2013-01-02 00:00:00 Completed [facility] Tdap 2013-01-02 00:00:00 Completed [facility] TDAP 2013-01-02 00:00:00 Completed [facility] TDAP 2013-01-02 00:00:00 Completed [facility] TDAP 2013-01-02 00:00:00 Completed [facility] TDAP 2013-01-02 00:00:00 Completed [facility] Tdap 2013-01-02 00:00:00 Completed [facility] TDAP 2013-01-02 00:00:00 Completed [facility] TDAP 2013-01-02 00:00:00 Completed [facility] TDAP 2013-01-02 00:00:00 Completed [facility] TDAP 2013-01-02 00:00:00 Completed [facility] Tdap 2013-01-02 00:00:00 Completed [facility] TDAP 2013-01-02 00:00:00 Completed [facility] TDAP 2013-01-02 00:00:00 Completed [facility] TDAP 2013-01-02 00:00:00 Completed [facility] TDAP 2013-01-02 00:00:00 Completed [facility] TDAP 2013-01-02 00:00:00 Completed [facility] TDAP 2013-01-02 00:00:00 Completed [facility] TDAP 2013-01-02 00:00:00 Completed [facility] TDAP 2013-01-02 00:00:00 Completed [facility] TDAP 2013-01-02 00:00:00 Completed [facility] Tdap 2013-01-02 00:00:00 Completed [facility] TDAP 2013-01-02 00:00:00 Completed [facility] TDAP 2013-01-02 00:00:00 Completed [facility] Tdap 2013-01-02 00:00:00 Completed [facility] TDAP 2013-01-02 00:00:00 Completed [facility] TDAP 2013-01-02 00:00:00 Completed [facility] Tdap 2013-01-02 00:00:00 Completed [facility] TDAP 2013-01-02 00:00:00 Completed [facility] TDAP 2013-01-02 00:00:00 Completed [facility] TDAP 2013-01-02 00:00:00 Completed [facility] TDAP 2013-01-02 00:00:00 Completed [facility] TDAP 2013-01-02 00:00:00 Completed [facility] TDAP 2013-01-02 00:00:00 Completed [facility] TDAP 2013-01-02 00:00:00 Completed [facility] TDAP 2013-01-02 00:00:00 Completed [facility] TDAP 2013-01-02 00:00:00 Completed [facility] TDAP 2013-01-02 00:00:00 Completed [facility] TDAP 2013-01-02 00:00:00 Completed [facility] TDAP Unknown Completed [facility] TDAP Unknown Completed [facility] TDAP Unknown Completed [facility] TDAP Unknown Completed [facility] TDAP Unknown Completed [facility] TDAP Unknown Completed [facility] TDAP Unknown Completed [facility] TDAP Unknown Completed [facility] TDAP Unknown Completed [facility] Vital Signs Vital Name Observation Time Observation Value Comments S ource Systolic blood pressure 2023-03-10 14:01:00 133 mm[Hg] [facility] Diastolic blood pressure 2023-03-10 14:01:00 85 mm[Hg] [facility] Heart rate 2023-03-10 14:01:00 88 /min Unive [facility] Body temperature 2023-03-10 14:01:00 36.56 [facility] Respiratory rate 2023-03-10 14:01:00 18 /min [facility] Body weight 2023-03-10 14:01:00 89.449 kg [facility] BMI 2023-03-10 14:01:00 34.93 kg/m2 [facility] Oxygen saturation in Arterial blood by Pulse oximetry 2023-03-10 14:01:00 98 /min [facility] Systolic blood pressure 2023-02-22 15:15:00 115 mm[Hg] [facility] Diastolic blood pressure 2023-02-22 15:15:00 67 mm[Hg] [facility] Heart rate 2023-02-22 15:15:00 71 /min [facility] Respiratory rate 2023-02-22 15:15:00 13 /min [facility] Oxygen saturation in Arterial blood by Pulse oximetry 2023-02-22 15:15:00 96 /min [facility] Body temperature 2023-02-22 14:08:00 36.61 [facility] Body height 2023-02-15 15:00:00 152.4 cm [facility] Body weight 2023-02-15 15:00:00 86.183 kg [facility] BMI 2023-02-15 15:00:00 37.11 kg/m2 [facility] Systolic blood pressure 2023-02-22 15:15:00 115 mm[Hg] [facility] Diastolic blood pressure 2023-02-22 15:15:00 67 mm[Hg] [facility] Heart rate 2023-02-22 15:15:00 71 /min Un[facility] Respiratory rate 2023-02-22 15:15:00 13 /min [facility] Oxygen saturation in Arterial blood by Pulse oximetry 2023-02-22 15:15:00 96 /min [facility] Body temperature 2023-02-22 14:08:00 36.61 [facility] Body height 2023-02-15 15:00:00 152.4 cm [facility] Body weight 2023-02-15 15:00:00 86.183 kg [facility] BMI 2023-02-15 15:00:00 37.11 kg/m2 [facility] Systolic blood pressure 2023-02-15 18:06:00 128 mm[Hg] [facility] Diastolic blood pressure 2023-02-15 18:06:00 88 mm[Hg] [facility] Heart rate 2023-02-15 18:06:00 89 /min Un[facility] Body temperature 2023-02-15 18:06:00 36.89 [facility] Respiratory rate 2023-02-15 18:06:00 18 /min [facility] Body height 2023-02-15 18:06:00 160 cm [facility] Body weight 2023-02-15 18:06:00 86.637 kg [facility] BMI 2023-02-15 18:06:00 33.83 kg/m2 [facility] Systolic blood pressure 2023-02-02 21:11:00 124 mm[Hg] [facility] Diastolic blood pressure 2023-02-02 21:11:00 88 mm[Hg] [facility] Heart rate 2023-02-02 21:11:00 86 /min Un[facility] Body temperature 2023-02-02 21:11:00 36.78 [facility] Body weight 2023-02-02 21:11:00 86.365 kg [facility] BMI 2023-02-02 21:11:00 37.18 kg/m2 [facility] Systolic blood pressure 2023-01-10 15:08:00 139 mm[Hg] [facility] Diastolic blood pressure 2023-01-10 15:08:00 94 mm[Hg] [facility] Body temperature 2023-01-10 15:07:00 36.5 [facility] Respiratory rate 2023-01-10 15:07:00 18 /min [facility] Body weight 2023-01-10 15:07:00 89.449 kg [facility] BMI 2023-01-10 15:07:00 38.51 kg/m2 [facility] Heart rate 2023-01-10 15:07:00 74 /min [facility] Systolic blood pressure 2023-01-06 20:51:00 126 mm[Hg] [facility] Diastolic blood pressure 2023-01-06 20:51:00 73 mm[Hg] [facility] Heart rate 2023-01-06 20:51:00 85 /min [facility] Body temperature 2023-01-06 20:51:00 36.56 [facility] Respiratory rate 2023-01-06 20:51:00 18 /min [facility] Oxygen saturation in Arterial blood by Pulse oximetry 2023-01-06 20:51:00 100 /min [facility] Systolic blood pressure 2023-01-03 21:21:00 151 mm[Hg] [facility] Diastolic blood pressure 2023-01-03 21:21:00 92 mm[Hg] [facility] Heart rate 2023-01-03 21:20:00 79 /min [facility] Body temperature 2023-01-03 21:20:00 36.33 [facility] Respiratory rate 2023-01-03 21:20:00 18 /min [facility] Body height 2023-01-03 21:20:00 152.4 cm [facility] Body weight 2023-01-03 21:20:00 96.979 kg [facility] BMI 2023-01-03 21:20:00 41.75 kg/m2 [facility] Systolic blood pressure 2022-12-16 21:13:00 130 mm[Hg] [facility] Diastolic blood pressure 2022-12-16 21:13:00 83 mm[Hg] [facility] Heart rate 2022-12-16 21:13:00 83 /min [facility] 2022-12-16 21:13:00 36.67 [facility] Body height 2022-12-16 21:13:00 165.1 cm [facility] Body weight 2022-12-16 21:13:00 95.8 kg [facility] BMI 2022-12-16 21:13:00 35.15 kg/m2 [facility] Systolic blood pressure 2022-12-02 20:52:00 122 mm[Hg] [facility] Diastolic blood pressure 2022-12-02 20:52:00 79 mm[Hg] [facility] Heart rate 2022-12-02 20:52:00 93 /min Un[facility] Body temperature 2022-12-02 20:52:00 36.72 [facility] Respiratory rate 2022-12-02 20:52:00 18 /min [facility] Body height 2022-12-02 20:52:00 165.1 cm [facility] Body weight 2022-12-02 20:52:00 92.987 kg [facility] BMI 2022-12-02 20:52:00 34.11 kg/m2 [facility] Systolic blood pressure 2022-11-15 20:54:00 114 mm[Hg] [facility] Diastolic blood pressure 2022-11-15 20:54:00 78 mm[Hg] [facility] Heart rate 2022-11-15 20:54:00 93 /min [facility] Body temperature 2022-11-15 20:54:00 36.67 [facility] Respiratory rate 2022-11-15 20:54:00 18 /min [facility] Body height 2022-11-15 20:54:00 165.1 cm [facility] Body weight 2022-11-15 20:54:00 93.441 [facility] BMI 2022-11-15 20:54:00 34.28 kg/m2 [facility] Systolic blood pressure 2022-10-11 21:06:00 126 mm[Hg] [facility] Diastolic blood pressure 2022-10-11 21:06:00 78 mm[Hg] [facility] Heart rate 2022-10-11 21:06:00 92 /min [facility] Body temperature 2022-10-11 21:06:00 37.06 [facility] Body height 2022-10-11 21:06:00 165.1 cm [facility] Body weight 2022-10-11 21:06:00 91.808 kg [facility] BMI 2022-10-11 21:06:00 33.68 kg/m2 [facility] Systolic blood pressure 2022-09-09 21:14:00 113 mm[Hg] [facility] Diastolic blood pressure 2022-09-09 21:14:00 75 mm[Hg] [facility] Heart rate 2022-09-09 21:14:00 79 /min [facility] Body temperature 2022-09-09 21:14:00 36.72 [facility] Body height 2022-09-09 21:14:00 165.1 cm [facility] Body weight 2022-09-09 21:14:00 90.538 kg [facility] BMI 2022-09-09 21:14:00 33.22 kg/m2 [facility] Systolic blood pressure 2022-08-12 22:20:00 124 mm[Hg] [facility] Diastolic blood pressure 2022-08-12 22:20:00 73 mm[Hg] [facility] Heart rate 2022-08-12 22:20:00 79 /min [facility] Body temperature 2022-08-12 22:20:00 36.5 [facility] Respiratory rate 2022-08-12 22:20:00 16 /min [facility] Body height 2022-08-12 22:20:00 165.1 cm [facility] Body weight 2022-08-12 22:20:00 89.812 kg [facility] BMI 2022-08-12 22:20:00 32.95 kg/m2 [facility] Systolic blood pressure 2022-06-28 20:59:00 138 mm[Hg] [facility] Diastolic blood pressure 2022-06-28 20:59:00 84 mm[Hg] [facility] Heart rate 2022-06-28 20:59:00 86 /min Un[facility] Body temperature 2022-06-28 20:59:00 36.72 [facility] Body height 2022-06-28 20:59:00 165.1 cm [facility] Body weight 2022-06-28 20:59:00 90.266 kg [facility] BMI 2022-06-28 20:59:00 33.12 kg/m2 [facility] Systolic blood pressure 2020-06-12 22:35:00 136 mm[Hg] [facility] Diastolic blood pressure 2020-06-12 22:35:00 89 mm[Hg] [facility] Heart rate 2020-06-12 22:35:00 73 /min Un[facility] Body temperature 2020-06-12 22:35:00 36.67 [facility] Respiratory rate 2020-06-12 22:35:00 18 /min [facility] Body height 2020-06-12 22:35:00 152.4 cm [facility] Body weight 2020-06-12 22:35:00 76.295 kg [facility] BMI 2020-06-12 22:35:00 32.85 kg/m2 [facility] Systolic blood pressure 2020-05-19 21:33:00 144 mm[Hg] [facility] Diastolic blood pressure 2020-05-19 21:33:00 98 mm[Hg] [facility] Heart rate 2020-05-19 21:33:00 91 /min [facility] Body temperature 2020-05-19 21:33:00 36.89 [facility] Respiratory rate 2020-05-19 21:33:00 18 /min [facility] Body height 2020-05-19 21:33:00 152.4 cm [facility] Body weight 2020-05-19 21:33:00 79.833 kg [facility] BMI 2020-05-19 21:33:00 34.37 kg/m2 [facility] Systolic blood pressure 2020-05-14 18:36:00 131 mm[Hg] [facility] Diastolic blood pressure 2020-05-14 18:36:00 74 mm[Hg] [facility] Heart rate 2020-05-14 18:36:00 81 /min [facility] Body temperature 2020-05-14 18:36:00 36.78 [facility] Respiratory rate 2020-05-14 18:36:00 18 /min [facility] Oxygen saturation in Arterial blood by Pulse oximetry 2020-05-13 18:03:00 100 /min [facility] Body height 2020-05-13 10:14:00 152.4 cm [facility] Body weight 2020-05-13 10:14:00 84.823 kg [facility] BMI 2020-05-13 10:14:00 36.52 kg/m2 [facility] Systolic blood pressure 2020-05-12 16:01:00 136 mm[Hg] [facility] Diastolic blood pressure 2020-05-12 16:01:00 75 mm[Hg] [facility] Heart rate 2020-05-12 16:01:00 93 /min [facility] Body temperature 2020-05-12 16:01:00 36.94 [facility] Respiratory rate 2020-05-12 16:01:00 18 /min [facility] Body height 2020-05-12 16:01:00 152.4 cm [facility] Body weight 2020-05-12 16:01:00 85.004 kg [facility] BMI 2020-05-12 16:01:00 36.60 kg/m2 [facility] Systolic blood pressure 2020-05-05 21:15:00 118 mm[Hg] [facility] Diastolic blood pressure 2020-05-05 21:15:00 81 mm[Hg] [facility] Heart rate 2020-05-05 21:15:00 97 /min Un[facility] Body temperature 2020-05-05 21:15:00 36.78 [facility] Respiratory rate 2020-05-05 21:15:00 18 /min [facility] Body height 2020-05-05 21:15:00 152.4 cm [facility] Body weight 2020-05-05 21:15:00 83.915 kg [facility] BMI 2020-05-05 21:15:00 36.13 kg/m2 [facility] Systolic blood pressure 2020-04-24 22:47:00 126 mm[Hg] [facility] Diastolic blood pressure 2020-04-24 22:47:00 80 mm[Hg] [facility] Heart rate 2020-04-24 22:47:00 104 /min [facility] Body temperature 2020-04-24 22:47:00 36.78 [facility] Respiratory rate 2020-04-24 22:47:00 18 /min [facility] Body height 2020-04-24 22:47:00 152.4 cm [facility] Body weight 2020-04-24 22:47:00 83.008 kg [facility] BMI 2020-04-24 22:47:00 35.74 kg/m2 [facility] Systolic blood pressure 2020-04-10 19:25:00 133 mm[Hg] [facility] Diastolic blood pressure 2020-04-10 19:25:00 79 mm[Hg] [facility] Heart rate 2020-04-10 19:25:00 100 /min [facility] Body temperature 2020-04-10 19:25:00 36.72 [facility] Respiratory rate 2020-04-10 19:25:00 18 /min [facility] Body height 2020-04-10 19:25:00 152.4 [facility] 2020-04-10 19:25:00 83.008 kg [facility] BMI 2020-04-10 19:25:00 35.74 kg/m2 [facility] Systolic blood pressure 2020-03-27 17:56:00 123 mm[Hg] [facility] Diastolic blood pressure 2020-03-27 17:56:00 74 mm[Hg] [facility] Heart rate 2020-03-27 17:56:00 90 /min [facility] Body temperature 2020-03-27 17:56:00 36.72 [facility] Respiratory rate 2020-03-27 17:56:00 18 /min [facility] Body height 2020-03-27 17:56:00 152.4 cm [facility] Body weight 2020-03-27 17:56:00 82.555 kg [facility] BMI 2020-03-27 17:56:00 35.54 kg/m2 [facility] Systolic blood pressure 2020-03-13 18:48:00 126 mm[Hg] [facility] Diastolic blood pressure 2020-03-13 18:48:00 73 mm[Hg] [facility] Heart rate 2020-03-13 18:48:00 90 /min [facility] Body temperature 2020-03-13 18:48:00 36.72 [facility] Respiratory rate 2020-03-13 18:48:00 18 /min [facility] Body height 2020-03-13 18:48:00 152.4 cm [facility] Body weight 2020-03-13 18:48:00 82.555 kg [facility] BMI 2020-03-13 18:48:00 35.54 kg/m2 [facility] Systolic blood pressure 2020-02-27 16:45:00 136 mm[Hg] [facility] Diastolic blood pressure 2020-02-27 16:45:00 84 mm[Hg] [facility] Heart rate 2020-02-27 16:45:00 100 /min [facility] Body temperature 2020-02-27 16:45:00 36.78 [facility] Respiratory rate 2020-02-27 16:45:00 18 /min [facility] Body height 2020-02-27 16:45:00 152.4 [facility] 2020-02-27 16:45:00 83.462 kg [facility] BMI 2020-02-27 16:45:00 35.94 kg/m2 [facility] Systolic blood pressure 2019-11-29 18:30:00 123 mm[Hg] [facility] Diastolic blood pressure 2019-11-29 18:30:00 78 mm[Hg] [facility] Heart rate 2019-11-29 18:30:00 79 /min [facility] Body temperature 2019-11-29 18:30:00 36.78 [facility] Respiratory rate 2019-11-29 18:30:00 18 /min [facility] Body height 2019-11-29 18:30:00 152.4 cm [facility] Body weight 2019-11-29 18:30:00 81.647 kg [facility] BMI 2019-11-29 18:30:00 35.15 kg/m2 [facility] Systolic blood pressure 2019-10-25 18:45:00 117 mm[Hg] [facility] Diastolic blood pressure 2019-10-25 18:45:00 73 mm[Hg] [facility] Heart rate 2019-10-25 18:45:00 77 /min [facility] Body temperature 2019-10-25 18:45:00 36.83 [facility] Respiratory rate 2019-10-25 18:45:00 18 /min [facility] Body height 2019-10-25 18:45:00 152.4 cm [facility] Body weight 2019-10-25 18:45:00 83.553 kg [facility] BMI 2019-10-25 18:45:00 35.97 kg/m2 [facility] Respiratory Rate 2022-01-21 13:50:00 BP Systolic 2022-01-21 13:50:00 135 mm[Hg] BP Diastolic 2022-01-21 13:50:00 94 mm[Hg] Weight Measured 2022-01-21 13:50:00 198.20 pounds Height Measured 2022-01-21 13:50:00 60.00 inches Body Temperature 2022-01-21 13:50:00 97.30 degrees Heart Rate 2022-01-21 13:50:00 81.00 /min BP Systolic 2019-09-19 16:53:00 137 mm[Hg] BP Diastolic 2019-09-19 16:53:00 86 mm[Hg] Weight Measured 2019-09-19 16:53:00 186.00 pounds Height Measured 2019-09-19 16:53:00 60.00 inches Body Temperature 2019-09-19 16:53:00 98.80 degrees Heart Rate 2019-09-19 16:53:00 84.00 /min Respiratory Rate 2019-09-19 16:53:00 Procedures Procedure Date / Time Performed Performing Clinician Source LAPAROSCOPIC SALPINGECTOMY 2023-02-22 12:36:00 Marilee Mancera [facility] POCT TEST 2023-02-22 12:05:00 Munir Read [facility] POCT TEST 2023-02-22 12:05:00 Munir Read [facility] DSU PRE-OP 2023-02-15 05:01:00 Doctor Unass igned, [facility] CBC WITH DIFF 2023-01-06 09:18:00 Marilee Mancera [facility] TYPE AND SCREEN 2023-01-05 10:06:00 Marilee Mancera [facility] EXTRA TUBE LAV (BLOOD BANK) 2023-01-05 10:06:00 Marilee Mancera [facility] CENTRAL NEURAXIAL BLOCK 2023-01-05 09:15:00 Tima Martinez [facility] RHO (D) IMMUNE GLOBULIN 2023-01-05 07:55:00 Marilee Mancera [facility] HIV 1/2 AG-AB WITH REFLEX 2023-01-05 07:55:00 Beatriz Mancera [facility] HEPATITIS B SURFACE ANTIGEN 2023-01-05 06:55:00 Marilee Mancera [facility] ADC OR SOLO ONLY - RPR 2023-01-05 06:28:00 Beatriz Mancera [facility] BIOPHYSICAL PROFILE 2023-01-04 16:52:53 Marilee Mancera [facility] US PELVIS > 14 WEEKS 2023-01-04 16:52:33 Marilee Mancera [facility] SGOT (ASPARTATE AMINO TRANSFER) 2023-01-04 03:11:00 Marilee Mancera [facility] CREATININE 2023-01-04 03:11:00 Marilee Mancera [facility] ALANINE AMINO TRANSFERASE(SGPT 2023-01-04 03:11:00 Marilee Mancera [facility] URIC ACID 2023-01-04 03:11:00 Marilee Mancera [facility] LACTATE DEHYDROGENASE 2023-01-04 01:57:00 Marilee Mancera [facility] CBC WITH DIFF 2023-01-04 01:57:00 Marilee Mancera [facility] URINALYSIS 2023-01-04 01:57:00 Marilee Mancera [facility] PROTEIN CREAT RATIO URINE RANDOM 2023-01-04 01:57:00 Marilee Mancera [facility] >14 WEEKS US LIMITED 2023-01-03 23:05:55 Marilee Mancera [facility] CONSENT/REFUSAL FOR DIAGNOSIS AND TREATMENT 2023-01-03 21:51:10 Doctor Unassigned, [facility] ASSIGNMENT OF BENEFITS 2023-01-03 21:47:35 Docto r Unassigned, [facility] POCT URINALYSIS W/O SPECIFIC GRAVITY 2023-01-03 21:26:00 Marilee Mancera [facility] POCT URINALYSIS W/O SPECIFIC GRAVITY 2022-12-16 00:00:00 Marilee Mancera [facility] POCT URINALYSIS W/O SPECIFIC GRAVITY 2022-12-02 00:00:00 Marilee Mancera [facility] TDAP VACCINE, >11 YRS, IM 2022-11-15 21:20:32 Constance Yates [facility] STERILIZATION CONSENT FORM 2022-11-15 05:01:00 Doctor Unassigned, [facility] POCT URINALYSIS W/O SPECIFIC GRAVITY 2022-11-15 00:00:00 Constance Yates [facility] POCT URINALYSIS W/O SPECIFIC GRAVITY 2022-10-11 00:00:00 Marilee Mancera [facility] POCT URINALYSIS W/O SPECIFIC GRAVITY 2022-09-09 00:00:00 Marilee Mancera [facility] PATIENT FINANCIAL POLICY 2022-08-12 22:02:58 Doctor Unassigned, [facility] POCT URINALYSIS W/O SPECIFIC GRAVITY 2022-08-12 00:00:00 Constance Yates [facility] URINE CULTURE 2022-07-14 16:05:00 Marilee Mancera [facility] HIV 1/2 AG-AB WITH REFLEX 2022-07-14 16:00:00 Beatriz Mancera [facility] GLUCOSE 1 HOUR POST PRANDIAL 2022-07-14 16:00:00 Marilee Mancera [facility] CBC WITH DIFF 2022-07-14 16:00:00 Marilee Mancera [facility] RUBELLA SCREEN IGG 2022-07-14 16:00:00 Marilee Mancera [facility] VZV ANTIBODY SCREEN 2022-07-14 16:00:00 Marilee Mancera [facility] HEPATITIS B SURFACE ANTIGEN 2022-07-14 16:00:00 Marilee Mancera [facility] HCV ANTIBODY 2022-07-14 16:00:00 Marilee Mancera [facility] ADC OR SOLO ONLY - RPR 2022-07-14 16:00:00 Beatriz Mancera [facility] HB ABO GROUPING 2022-07-14 15:56:00 Marilee Mancera [facility] SCANNED LAB RESULTS 2022-07-14 06:01:00 Doctor U nassigned, [facility] US OB TRANSVAGINAL 2022-06-28 21:36:45 [facility]on [facility]ENEFITS 2022-06-28 20:24:04 Docto r Unassigned, [facility] POCT TEST 2022-06-28 00:00:00 Marilee Mancera [facility] POCT URINALYSIS W/O SPECIFIC GRAVITY 2022-06-28 00:00:00 Marilee Mancera [facility] MEDICATION CORRESPONDENCE 2021-02-12 05:01:00 Do ctor Unassigned, [facility] CBC WITH DIFF 2020-05-14 10:21:00 Marilee Mancera [facility] VENOUS CORD GAS 2020-05-13 18:25:00 Marilee Mancera [facility] URINALYSIS 2020-05-13 15:37:00 Marilee Mancera [facility] PROTEIN CREAT RATIO URINE RANDOM 2020-05-13 15:37:00 Marilee Mancera [facility] SGOT (ASPARTATE AMINO TRANSFER) 2020-05-13 10:19:00 Marilee Mancera [facility] CREATININE 2020-05-13 10:19:00 Marilee Mancera [facility] ALANINE AMINO TRANSFERASE(SGPT 2020-05-13 10:19:00 [facility] 2020-05-13 10:19:00 Marilee Mancera [facility] CBC WITH DIFF 2020-05-13 10:19:00 Marilee Mancera [facility] ADC OR SOLO ONLY - RPR 2020-05-13 10:19:00 Beatriz Mancera [facility] HIV 1/2 AG-AB WITH REFLEX 2020-05-13 10:19:00 Beatriz Mancera [facility] HEPATITIS B SURFACE ANTIGEN 2020-05-13 10:18:00 Marilee Mancera [facility] HB ABO GROUPING 2020-05-13 10:15:00 Marilee Mancera [facility] RHO (D) IMMUNE GLOBULIN 2020-05-13 10:15:00 Marilee Mancera [facility] CONSENT/REFUSAL FOR DIAGNOSIS AND TREATMENT 2020-05-12 16:37:32 Doctor Unassigned, [facility] ASSIGNMENT OF BENEFITS 2020-05-12 16:36:46 Docto r Unassigned, [facility] POCT URINALYSIS W/O SPECIFIC GRAVITY 2020-05-12 00:00:00 Trell Constance [facility] >14 WEEKS US LIMITED 2020-04-24 23:09:26 Trell [facility] DSU PRE-OP 2020-04-24 06:01:00 Doctor Unass igned, [facility] POCT URINALYSIS W/O SPECIFIC GRAVITY 2020-04-24 00:00:00 Trell [facility] POCT URINALYSIS W/O SPECIFIC GRAVITY 2020-04-10 00:00:00 Marilee Mancera [facility] POCT URINALYSIS W/O SPECIFIC GRAVITY 2020-03-27 00:00:00 Trell [facility] POCT URINALYSIS W/O SPECIFIC GRAVITY 2020-03-13 00:00:00 Marilee Mancera [facility] TDAP VACCINE, >11 YRS, IM 2020-02-27 16:54:59 Trell [facility] POCT URINALYSIS W/O SPECIFIC GRAVITY 2020-02-27 00:00:00 Trell [facility] POCT URINALYSIS W/O SPECIFIC GRAVITY 2019-11-29 00:00:00 Marilee Mancera [facility] REFERRAL- REQUEST/RESPONSE 2019-11-04 05:01:00 Doctor Unassigned, [facility] 3 HR GLUCOSE TOLERANCE TEST 2019-10-31 16:46:00 Trell [facility] 2 HR GLUCOSE TOLERANCE TEST 2019-10-31 15:45:00 Trell [facility] 1 HR GLUCOSE TOLERANCE TEST 2019-10-31 14:48:00 Trell [facility] GLUCOSE FASTING 2019-10-31 13:43:00 Trell Constance Un [facility] GLUCOSE FASTING 2019-10-31 13:43:00 Trell Constance Un [facility] <14 WEEKS US LIMITED 2019-10-26 00:02:27 Marilee Mancera [facility] ADC / LCC - DRUG SCREEN TRIAGE 2019-10-25 18:39:00 Marilee Mancera [facility] POCT URINALYSIS W/O SPECIFIC GRAVITY 2019-10-25 00:00:00 Marilee Mancera [facility] Plan of Care Planned Activity Planned Date Details Comments Source Goal Plan of Care Note [code = 98667-1] Goal Plan of Care Note [code = 51633-5] Goal Plan of Care Note [code = 59841-9] Goal Plan of Care Note [code = 13886-4] Goal Plan of Care Note [code = 18493-1] Goal Plan of Care Note [code = 23119-1] Goal Plan of Care Note [code = 07833-9] Goal Plan of Care Note [code = 59665-2] Goal Plan of Care Note [code = 67197-1] Encounters Start Date/Time End Date/Time Encounter Type Admission Type Attending Clinicians Care Facility Care Department Encounter ID Source 2021-04-04 09:36:11 Outpatient P [facility] RAMANDEEP [id number] [facility] 2023-10-11 13:30:00 2023-10-11 13:30:00 Outpatient MARILEE MORALES [facility] [id number] [facility] 2023-03-10 09:15:00 2023-03-10 09:15:00 Office Visit Marilee Mancera [facility] 1.2.840.114 350.1.13.10 4.2.7.2.686 [id number] 134 [id number] [facility] 2023-03-10 09:15:00 2023-03-10 09:08:10 Outpatient MARILEE MORALES [facility] [id number] [facility] 2023-02-22 07:00:00 2023-02-22 10:25:00 Outpatient MARILEE MORALES [facility] SUPERVISOR DRAWING [id number] [facility] 2023-02-22 07:00:00 2023-02-22 10:25:00 Hospital Encounter Marilee Mancera [facility]DEPEND[facility] 1.2.840.114 350.1.13.10 4.2.7.2.686 [id number] [facility] 2023-02-22 07:50:00 2023-02-22 10:21:00 Surgery Marilee Mancera [facility]DEPEND[facility] 1.2.840.114 350.1.13.10 4.2.7.2.686 [id number] [facility] 2023-02-21 16:00:00 2023-02-21 16:15:00 Hospital Chaplain Visit Pob, Adc Lab Main Calderon [facility] PROFESSIO NAL BUILDING 1.840.114 350.1.13.10 4.2.7.2.686 [id number] [facility] 2023-02-21 16:00:00 2023-02-21 16:00:00 Outpatient R [facility]ON [facility] [id number] [facility] 2023-02-15 13:00:00 2023-02-15 13:17:44 Outpatient R [facility] [id number] [facility] 2023-02-15 13:00:00 2023-02-15 13:17:44 Office Visit Calderon [facility] PROFESSIO NAL BUILDING 1.20.114 350.1.13.10 4.2.7.2.686 [id number] [facility] 2023-02-15 00:00:00 2023-02-15 00:00:00 Orders Only Doctor Unassigned, [place] [facility] 1.2.840.114 350.1.13.10 4.2.7.2.686 [id number] [facility] 2023-02-03 00:00:00 2023-02-03 00:00:00 Prep For Surgery Marilee Mancera [facility] PROFESSIO NAL BUILDING 1.2.840.114 350.1.13.10 4.2.7.2.686 [id number] 134 [id number] [facility] 2023-02-02 16:15:00 2023-02-02 16:46:12 Outpatient R MARILEE MANCERA [facility] [id number] [facility] 2023-02-02 16:15:00 2023-02-02 16:46:12 [facility] 1.2.840.114 350.1.13.10 4.2.7.2.686 [id number] 134 [id number] [facility] 2023-01-14 00:00:00 2023-01-14 00:00:00 Telephone Marilee Mancera [facility] BUILDING 1.2.840.114 350.1.13.10 4.2.7.2.686 [id number] [facility] 2023-01-10 16:00:00 2023-01-10 16:00:00 Outpatient R MARILEE MANCERA [facility] [id number] [facility] 2023-01-10 10:00:00 2023-01-10 10:15:00 Nurse Visit Nurse, [facility] BU[facility] 1.2.840.114 350.1.13.10 4.2.7.2.686 [id number] [facility] 2023-01-10 10:00:00 2023-01-10 10:00:00 Outpatient R MARILEE MANCERA [facility] [id number] [facility] 2023-01-03 16:46:00 2023-01-06 18:55:00 Inpatient P MARILEE MANCERA [facility] [id number] [facility] 2023-01-03 16:46:00 2023-01-06 18:55:00 Hospital Encounter Marilee Mancera [facility] 1.2.840.114 350.1.13.10 4.2.7.2.686 [id number] [facility] 2023-01-06 00:00:00 2023-01-06 00:00:00 Refill Marilee Mancera [facility] PROFESSIO NAL BUILDING 1.2.840.114 350.1.13.10 4.2.7.2.686 [id number] 134 [id number] [facility] 2023-01-05 20:01:23 2023-01-05 20:01:23 [facility] 1.2.840.114 350.1.13.10 4.2.7.2.686 [id number] [facility] 2023-01-05 04:15:00 2023-01-05 08:11:00 Anesthesia Event Escobar rodríguez [facility] 1.2.840.114 350.1.13.10 4.2.7.2.686 [id number] [facility] 2023-01-03 16:00:00 2023-01-03 16:35:06 Outpatient R MARILEE MANCERA [facility] [id number] [facility] 2023-01-03 16:00:00 2023-01-03 16:35:06 Routine Visit Marilee Mancera [facility] PROFESSIO NAL BUILDING 1.2.840.114 350.1.13.10 4.2.7.2.686 [id number] 134 [id number] [facility] 2022-12-16 16:00:00 2022-12-16 16:41:32 Outpatient R MARILEE MANCERA [facility] [id number] [facility] 2022-12-16 16:00:00 2022-12-16 16:41:32 Routine Visit Marilee Mancera [facility] 1..840.114 350.1.13.10 4.2.7.2.686 [id number] [facility] 2022-12-14 09:15:00 2022-12-14 09:46:23 Outpatient P KARLA BUCHANAN [facility] [id number] [facility] 2022-12-14 09:15:00 2022-12-14 09:46:23 Hospital Chaplain Visit Ultrasound, JerrodKarla Christensen [facility] SHEET MUSIC SALESPERSON [facility] 1.840.114 350.1.13.10 4.2.7.2.686 [id number] [facility] 2022-12-02 15:45:00 2022-12-02 16:13:30 Outpatient R MARILEE MANCERA [facility] [id number] [facility] 2022-12-02 15:45:00 2022-12-02 16:13:30 Routine Visit Marilee Mancera [facility] 1..840.114 350.1.13.10 4.2.7.2.686 [id number] [facility] 2022-11-15 16:00:00 2022-11-15 16:26:39 [id number] 2022-11-15 16:00:00 2022-11-15 16:26:39 Routine Visit DouglasConstance berkowitz [facility] 1..840.114 350.1.13.10 4.2.7.2.686 [id number] [facility] 2022-11-15 00:00:00 2022-11-15 00:00:00 Orders Only Doctor Unassigned, [place] [facility] 1.840.114 350.1.13.10 4.2.7.2.686 [id number] [facility] 2022-11-09 08:15:00 2022-11-09 08:30:00 Hospital Chaplain Visit 2, Adc Lab Marilee Mancera [facility] BUILDING 1.840.114 350.1.13.10 4.2.7.2.686 [id number] [facility] 2022-11-09 08:15:00 2022-11-09 08:15:00 Outpatient R MARILEE MANCERA [facility] [id number] [facility] 2022-11-04 13:30:00 2022-11-04 13:30:00 Outpatient R UNKNOWN, ATTENDING [facility] [id number] [facility] 2022-10-21 14:30:00 2022-10-21 15:30:00 Hospital Chaplain Visit Ultrasound, Alexander-Cherelle Tovar [facility] SHEET MUSIC SALESPERSON [facility] 1.840.114 350.1.13.10 4.2.7.2.686 [id number] [facility] 2022-10-21 14:30:00 2022-10-21 14:30:00 Outpatient P CHERELLE MICHEL [facility] [id number] [facility] 2022-10-21 00:00:00 2022-10-21 00:00:00 Case Management Marilee Mancera [facility] 1..840.114 350.1.13.10 4.2.7.2.686 [id number] [facility] 2022-10-11 16:15:00 2022-10-11 16:30:00 Routine Visit Marilee Mancera [facility] BUILDING 1.2.840.114 350.1.13.10 4.2.7.2.686 [id number] [facility] 2022-10-11 16:15:00 2022-10-11 16:15:00 Outpatient R MARILEE MANCERA [facility] [id number] [facility] 2022-09-30 13:45:00 2022-09-30 13:45:00 Outpatient P [facility] [id number] [facility] 2022-09-09 16:00:00 2022-09-09 16:30:41 Outpatient R MARILEE MANCERA [facility] [id number] [facility] 2022-09-09 16:00:00 2022-09-09 16:30:41 Routine Visit Marilee Mancera [facility] BUILDING 1.2.840.114 350.1.13.10 4.2.7.2.686 [id number] [facility] 2022-09-09 00:00:00 2022-09-09 00:00:00 Telephone Marilee Mancera [facility] BUILDING 1.2.840.114 350.1.13.10 4.2.7.2.686 [id number] [facility] 2022-08-23 16:00:00 2022-08-23 16:15:00 Hospital Chaplain Visit 2, Adc Lab Marilee Mancera [facility] BUILDING 1.2.840.114 350.1.13.10 4.2.7.2.686 [id number] [facility] 2022-08-23 16:00:00 2022-08-23 16:00:00 Outpatient R MARILEE MANCERA [facility] [id number] [facility] 2022-08-16 11:00:00 2022-08-16 11:00:00 Outpatient R [facility] [id number] [facility] 2022-08-12 16:15:00 2022-08-12 16:35:20 Outpatient R CONSTANCE YATES [facility] [id number] [facility] 2022-08-12 16:15:00 2022-08-12 16:30:00 Routine Visit Douglaswoo [facility] 1..840.114 350.1.13.10 4.2.7.2.686 [id number] [facility] 2022-08-12 00:00:00 2022-08-12 00:00:00 Orders Only Doctor Unassigned, [place] [facility] 1.840.114 350.1.13.10 4.2.7.2.686 [id number] [facility] 2022-08-03 14:15:00 2022-08-03 14:15:00 Outpatient R MARILEE MANCERA [facility] [id number] [facility] 2022-07-26 16:15:00 2022-07-26 16:15:00 [facility] [id number] [facility] 2022-07-14 09:00:00 2022-07-14 11:03:15 Hospital Chaplain Visit 2, Adc Lab Marilee Mancera [facility] 1..840.114 350.1.13.10 4.2.7.2.686 [id number] [facility] 2022-07-14 09:00:00 2022-07-14 09:00:00 Outpatient Keyur MANCERA MARILEE [facility] [id number] [facility] 2022-07-14 00:00:00 2022-07-14 00:00:00 Orders Only Doctor Unassigned, [place] [facility] 1.840.114 350.1.13.10 4.2.7.2.686 [id number] [facility] 2022-06-28 14:30:00 2022-06-28 15:31:23 Outpatient R MARILEE MANCERA [facility] [id number] [facility] 2022-06-28 14:30:00 2022-06-28 15:31:23 Initial Visit Marilee Mancera [facility] 1.2.840.114 350.1.13.10 4.2.7.2.686 [id number] [facility] 2022-06-28 00:00:00 2022-06-28 00:00:00 Orders Only Doctor Unassigned, [place] [facility] 1.2840.114 350.1.13.10 4.2.7.2.686 [id number] [facility] 2022-06-28 00:00:00 2022-06-28 00:00:00 Letter (Out) Marilee Mancera [facility] 1..840.114 350.1.13.10 4.2.7.2.686 [id number] [facility] 2022-01-21 00:00:00 2022-01-21 00:00:00 Outpatient Visit [id number] 2021-02-12 00:00:00 2021-02-12 00:00:00 Orders Only Doctor Unassigned, [place] [facility] 1.840.114 350.1.13.10 4.2.7.2.686 [id number] [facility] 2020-12-10 15:30:00 2020-12-10 15:30:00 Outpatient R CONSTANCE YATES [facility] [id number] [facility] 2020-07-10 13:45:00 2020-07-10 13:45:00 Outpatient R CONSTANCE YATES [facility] [id number] [facility] 2020-06-12 15:57:11 2020-06-12 17:09:46 Routine Visit Marilee Mancera [facility] Professio nal Building 1.2840.114 350.1.13.10 4.2.7.2.686 [id number] [facility] 2020-06-12 16:15:00 2020-06-12 16:15:00 Outpatient R [facility] [id number] [facility] 2020-06-09 11:15:00 2020-06-09 11:15:00 Outpatient R [facility] [id number] [facility] 2020-05-19 14:01:24 2020-05-19 15:12:35 Nurse Visit Nurse, [facility] 1.20.114 350.1.13.10 4.2.7.2.686 [id number] [facility] 2020-05-19 14:00:00 2020-05-19 14:00:00 [facility] [id number] [facility] 2020-05-13 03:55:00 2020-05-14 15:25:00 Hospital Encounter Marilee Mancera [facility] 1.2840.114 350.1.13.10 4.2.7.2.686 [id number] [facility] 2020-05-12 10:25:07 2020-05-12 10:40:07 Laboratory Only Only, [facility] Test Constance Yates [facility] 1.2840.114 350.1.13.10 4.2.7.2.686 [id number] [facility] 2020-05-12 09:50:47 2020-05-12 10:05:47 Routine [facility]stance [facility] 1.2.840.114 350.1.13.10 4.2.7.2.686 [id number] [facility] 2020-05-12 09:45:00 2020-05-12 09:45:00 Outpatient R CONSTANCE YATES [facility] [id number] [facility] 2020-05-05 14:15:07 2020-05-05 16:02:31 Routine Visit Marilee Mancera [facility] Building 1.2.840.114 350.1.13.10 4.2.7.2.686 [id number] [facility] 2020-05-05 13:56:12 2020-05-05 14:11:12 Hospital Chaplain Visit 2, Adc Lab Marilee Mancera [facility] Building 1.2.840.114 350.1.13.10 4.2.7.2.686 [id number] [facility] 2020-05-05 14:00:00 2020-05-05 14:00:00 Outpatient R [facility] [id number] [facility] 2020-04-28 00:00:00 2020-04-28 00:00:00 Case Management Constance Yates [facility] Building 1.2.840.114 350.1.13.10 4.2.7.2.686 [id number] [facility] 2020-04-28 00:00:00 2020-04-28 00:00:00 Telephone Constance Yates [facility] Building 1.2.840.114 350.1.13.10 4.2.7.2.686 [id number] [facility] 2020-04-24 16:29:10 2020-04-24 17:15:06 Routine Visit Constance Yates [facility] 1.2.840.114 350.1.13.10 4.2.7.2.686 [id number] [facility] 2020-04-24 16:30:00 2020-04-24 16:30:00 Outpatient R CONSTANCE YATES [facility] [id number] [facility] 2020-04-24 00:00:00 2020-04-24 00:00:00 Orders Only Doctor Unassigned, [place] [facility] 1.2.840.114 350.1.13.10 4.2.7.2.686 [id number] [facility] 2020-04-10 13:11:35 2020-04-10 13:47:09 Routine Visit Marilee [facility] [id number] 350.1.13.10 4.2.7.2.686 [id number] [facility] 2020-04-10 13:15:00 2020-04-10 13:15:00 Outpatient R MARILEE MANCERA [facility] [id number] [facility] 2020-03-27 12:51:22 2020-03-27 13:06:22 Routine Visit Constance Yates [facility] [id number] 350.1.13.10 4.2.7.2.686 [id number] [facility] 2020-03-27 13:00:00 2020-03-27 13:00:00 [facility] [id number] 2020-03-13 13:37:25 2020-03-13 14:13:44 Routine Visit Marilee [facility] [id number] 350.1.13.10 4.2.7.2.686 [id number] [facility] 2020-03-13 13:45:00 2020-03-13 13:45:00 Outpatient R MARILEE MANCERA [facility] [id number] [facility] 2020-02-27 13:18:48 2020-02-27 13:33:48 Hospital Chaplain Visit 2, [facility] [facility] 1..840.114 350.1.13.10 4.2.7.2.686 [id number] [facility] 2020-02-27 11:31:34 2020-02-27 11:46:34 Routine Visit Constance Yates [facility] 1..840.114 350.1.13.10 4.2.7.2.686 [id number] 134 [id number] [facility] 2020-02-27 11:30:00 2020-02-27 11:30:00 Outpatient R CONSTANCE YATES [facility] [id number] [facility] 2020-01-28 08:36:54 2020-01-28 16:47:30 Telemedici ne Visit Marilee Mancera [facility] 1..840.114 350.1.13.10 4.2.7.2.686 [id number] 134 [id number] [facility] 2020-01-28 15:45:00 2020-01-28 15:45:00 Outpatient R MARILEE MANCERA [facility] [id number] [facility] 2020-01-04 10:55:18 2020-01-04 11:55:18 Hospital Chaplain Visit Ultrasound, Adc Jeancarlos Kam [facility] 1.2.84.114 350.1.13.10 4.2.7.2.686 [id number] 134 [id number] [facility] 2020-01-04 11:00:00 2020-01-04 11:00:00 Outpatient R [facility] [id number] [facility] 2019-12-31 16:30:00 2019-12-31 16:30:00 Outpatient R CONSTANCE YATES [facility] [id number] [facility] 2019-12-31 08:17:48 2019-12-31 08:32:48 Telemedici ne Visit Constance Yates [facility] 1.2840.114 350.1.13.10 4.2.7.2.686 [id number] 134 [id number] [facility] 2019-11-29 13:56:19 2019-11-29 14:11:19 Hospital Chaplain Visit 2, Adc Lab Marilee Mancera [facility] 1.2840.114 350.1.13.10 4.2.7.2.686 [id number] [facility] 2019-11-29 13:02:49 2019-11-29 13:53:57 Routine Visit Marilee Mancera [facility] 1.20.114 350.1.13.10 4.2.7.2.686 [id number] [facility] 2019-11-29 13:00:00 2019-11-29 13:00:00 Outpatient R MARILEE MANCERA [facility] [id number] [facility] 2019-11-06 00:00:00 2019-11-06 00:00:00 Telephone Marilee Mancera [facility] 1.20.114 350.1.13.10 4.2.7.2.686 [id number] 134 [id number] [facility] 2019-11-04 00:00:00 2019-11-04 00:00:00 Orders Only Doctor Unassigned, [place] [facility] 1.2840.114 350.1.13.10 4.2.7.2.686 [id number] [facility] 2019-11-02 00:00:00 2019-11-02 00:00:00 Telephone Marilee Mancera [facility] nal Building 1.2.840.114 350.1.13.10 4.2.7.2.686 [id number] 134 [id number] [facility] 2019-10-31 08:40:44 2019-10-31 08:55:44 Hospital Chaplain Visit 2, Adc Lab Marilee Mancera [facility] nal Building 1.2.840.114 350.1.13.10 4.2.7.2.686 [id number] [facility] 2019-10-31 08:30:00 2019-10-31 08:30:00 Outpatient R [facility] [id number] [facility] 2019-10-26 00:00:00 2019-10-26 00:00:00 Case Management Trell Constance [facility] 1.2.840.114 350.1.13.10 4.2.7.2.686 [id number] 134 [id number] [facility] 2019-10-25 13:46:31 2019-10-25 14:01:31 Hospital Chaplain Visit 2, Adc Lab Marilee Mancera [facility] 1.2.840.114 350.1.13.10 4.2.7.2.686 [id number] [facility] 2019-10-25 14:00:00 2019-10-25 14:00:00 Outpatient R [facility] [id number] [facility] 2019-10-25 12:50:58 2019-10-25 13:38:09 Routine Visit Marilee Mancera [facility] nal Building 1.2.840.114 350.1.13.10 4.2.7.2.686 [id number] 134 [id number] [facility] Results Test Description Test Time Test Comments Results Result Co mments Source [facility] [id number] 12:07:00* Test Item Value Reference Range Interpretation Comme nts POCT PREG (test code = 1605) Negative On board controls acceptable with C Line (test code = 3574) Yes POCT PREG LOT # (test code = 3575) [id number] POCT PREG TEST DATE ( test code = 3576) 08/03/24 Lab Interpretation (test cod e = 24758-4) Normal [facility] CenterCBC with [id number] 12:10:41* Test Item Value Reference Range Interpretation Comme nts WBC (test code = 6690-2) 10.03 See_Comment [Automated messa ge] The system which generated this result transmitted reference range: 4.30 - 11.10 10*3/?L. The reference range was not used to interpret this result as normal/abnormal. RBC (test code = 789-8) 3.45 See_Comment L [Automated messa ge] The system which generated this result transmitted reference range: 3.93 - 5.25 10*6/?L. The reference range was not used to interpret this result as normal/abnormal. HGB (test code = 718-7) 9.5 g/dL 11.6-15.0 L HCT (test code = 4544-3) 29.0 % 35.7-45.2 L MCV (test code = 787-2) 84.1 fL 80.6-95.5 MCH (test code = 785-6) 27.5 pg 25.9-32.8 MCHC (test code = 786-4) 32.8 g/dL 31.6-35.1 RDW-SD (test code = 95614-5) 42.6 fL 39.0-49.9 RDW-CV (test code = 788-0) 14.1 % 12.0-15.5 PLT (test code = 777-3) 311 See_Comment [Automated messa ge] The system which generated this result transmitted reference range: 166 - 358 10*3/?L. The reference range was not used to interpret this result as normal/abnormal. MPV (test code = 58498-8) 10.5 fL 9.5-12.9 NRBC/100 WBC (test code = 0902076933) 0.0 See_Comment [Automated me ssage] The system which generated this result transmitted reference range: 0.0 - 10.0 /100 WBCs. The reference range was not used to interpret this result as normal/abnormal. NRBC x10^3 (test code = 9646505721) See_Comment [Automated messa ge] The system which generated this result transmitted reference range: 10*3/?L. The reference range was not used to interpret this result as normal/abnormal. GRAN MAT (NEUT) % (test code = 770-8) 67.5 % IMM GRAN % (test code = 2837605385) 0.30 % LYMPH % (test code = 736-9) 26.4 % MONO % (test code = 5905-5) 5.4 % EOS % (test code = 713-8) 0.2 % BASO % (test code = 706-2) 0.2 % GRAN MAT x10^3(ANC) (test code = 7993456566) 6.77 10*3/uL 1.88-7.09 IMM GRAN x10^3 (test code = 4970188002) 0.03 10*3/uL 0.00-0.06 LYMPH x10^3 (test code = 731-0) 2.65 10*3/uL 1.32-3.29 MONO x10^3 (test code = 742-7) 0.54 10*3/uL 0.33-0.92 EOS x10^3 (test code = 711-2) 0.03-0.39 L BASO x10^3 (test code = 704-7) 0.01-0.07 Lab Interpretation (test code = 20387-5) Abnormal [facility] CenterRHO (D) IMMUNE [id number] 18:27:21* Test Item Value Reference Range Interpretation Comme nts RHIG CANDIDATE? (test code = 5188) No- see comment Patient is not a candidate for RhIg- Patient is Rh Positive.Performed at [facility] Laboratory Services - [facility] Blood [address] [place] [address]Havq Free: [phone] No. [id number] [facility] CenterType and Screen - [id number] 17:26:28* Test Item Value Reference Range Interpretation Comme nts ABO & RH (test code = 20) AB Positive Performed at [facility] Laboratory Services - [facility] Blood [address] [address]Ysyn Free: [phone] No. [id number] IAT (test code = 1185) Negative Performed at [facility] Laboratory Services [facility] Blood [place] [id number] Free: [phone] No. [id number] [facility] CenterHepatitis B Surface Eduaald5054-19-67 16:46:08 * Test Item Value Reference Range Interpretation Comme nts HBsAg Semi-Quantitative (jeane t code = 5195-3) 0.41 Negative [facility] CenterHIV 1/2 AG-AB WITH [id number] 12:36:09* Test Item Value Reference Range Interpretation Comme nts HIV Semi-quantitative (test code = 24943-8) 0.22 Negative ANASTASIA (test code = ANASTASIA) Non-reactive for HIV-1 antigen and HIV-1/HIV-2 antibodies. ?No laboratory evidence of HIV infection. ?Repeat in 2-4 weeks if acute HIV infection is suspected. [facility] CenterADC OR [facility]O ONLY - [id number] 08:48:51* Test Item Value Reference Range Interpretation Comme nts RPR (Qualitative) (test code = 37939-7) Nonreactive Nonreactive Lab Interpretation (test cod e = 81357-3) Normal [facility] CenterPOCT URINALYSIS W/O SPECIFIC [id number] 21:31:00* Test Item Value Reference Range Interpretation Comme nts POCT PH U (test code = 3254) 7 mg/dl 5-8 POCT U LEUK EST (test code = 3263) trace Negative - Negative POCT U NIT (test code = 3262) positive Negative - Negative POCT U PROT (test code = 3259) trace Negative - Negative POCT U GLU (test code = 3256) negative Negative - Negative POCT U KETONE (test code = 3258) negative Negative - Negative POCT U BLD (test code = 3257) negative Negative - Negative ANASTASIA (test code = ANASTASIA) accurate developme nt and interpretation of all internal controls Lab Interpretation (test code = 36115-1) Abnormal [facility] URINALYSIS W/O SPECIFIC [id number] 21:11:00* Test Item Value Reference Range Interpretation Comme nts POCT PH U (test code = 3254) n/a 5-8 POCT U LEUK EST (test code = 3263) n/a Negative - Negative POCT U NIT (test code = 3262) n/a Negative - Negati ve POCT U PROT (test code = 3259) Negative Negative - Negat kaitlin POCT U GLU (test code = 3256) Normal Negative - Negati ve POCT U KETONE (test code = 3258) n/a Negative - Neg ative POCT U BLD (test code = 3257) n/a Negative - Negati ve [facility] URINALYSIS W/O SPECIFIC [id number] 21:04:00* Test Item Value Reference Range Interpretation Comme nts POCT PH U (test code = 3254) n/a 5-8 POCT U LEUK EST (test code = 3263) n/a Negative - N egative POCT U NIT (test code = 3262) n/a Negative - Negati ve POCT U PROT (test code = 3259) neg Negative - Negat kaitlin POCT U GLU (test code = 3256) neg Negative - Negati ve POCT U KETONE (test code = 3258) n/a Negative - Neg ative POCT U BLD (test code = 3257) n/a Negative - Negati ve [facility] URINALYSIS W/O SPECIFIC [id number] 21:20:00* Test Item Value Reference Range Interpretation Comme nts POCT PH U (test code = 3254) n/a 5-8 POCT U LEUK EST (test code = 3263) n/a Negative - N egative POCT U NIT (test code = 3262) n/a Negative - Negati ve POCT U PROT (test code = 3259) NEG Negative - Negat kaitlin POCT U GLU (test code = 3256) NEG Negative - Negati ve POCT U KETONE (test code = 3258) N/A Negative - Neg ative POCT U BLD (test code = 3257) N/A Negative - Negati ve [facility] URINALYSIS W/O SPECIFIC [id number] 21:03:00* Test Item Value Reference Range Interpretation Comme nts POCT PH U (test code = 3254) n/a 5-8 POCT U LEUK EST (test code = 3263) n/a Negative - Negative POCT U NIT (test code = 3262) n/a Negative - Negati ve POCT U PROT (test code = 3259) Negative Negative - Negat kaitlin POCT U GLU (test code = 3256) Normal Negative - Negati ve POCT U KETONE (test code = 3258) n/a Negative - Neg ative POCT U BLD (test code = 3257) n/a Negative - Negati ve [facility] URINALYSIS W/O SPECIFIC [id number] 21:12:00* Test Item Value Reference Range Interpretation Comme nts POCT PH U (test code = 3254) n/a 5-8 POCT U LEUK EST (test code = 3263) n/a Negative - Negative POCT U NIT (test code = 3262) n/a Negative - Negati ve POCT U PROT (test code = 3259) Negative Negative - Negat kaitlin POCT U GLU (test code = 3256) Normal Negative - Negati ve POCT U KETONE (test code = 3258) n/a Negative - Neg ative POCT U BLD (test code = 3257) n/a Negative - Negati ve [facility] [id number] 22:22:00* Test Item Value Reference Range Interpretation Comme nts POCT PH U (test code = 3254) n/a 5-8 POCT U LEUK EST (test code = 3263) n/a Negative - Negative POCT U NIT (test code = 3262) n/a Negative - Negati ve POCT U PROT (test code = 3259) Negative Negative - Negat kaitlin POCT U GLU (test code = 3256) Normal Negative - Negati ve POCT U KETONE (test code = 3258) n/a Negative - Neg ative POCT U BLD (test code = 3257) n/a Negative - Negati ve [facility] CenterPRENATAL WORKUP, BLOOD [id number] 19:31:53 * Test Item Value Reference Range Interpretation Comme nts ABO & RH (test code = 20) AB Positive Performed at [facility] Laboratory [facility] Blood [address] [place] [address] Free: [phone] No. [id number] IAT (test code = 1185) Negative Performed at [facility] Blood [address] [place] [address]Toll Free: [phone] No. [id number] [facility] CenterPOME [id number] 21:05:00* Test Item Value Reference Range Interpretation Comme nts POCT PREG (test code = 1605) Positive On board controls acceptable with C Line (test code = 3574) Yes POCT PREG LOT # (test code = 3575) POCT PREG TEST DATE ( test code = 3576) [facility] URINALYSIS W/O SPECIFIC [id number] 21:05:00* Test Item Value Reference Range Interpretation Comme nts POCT PH U (test code = 3254) n/a 5-8 POCT U LEUK EST (test code = 3263) n/a Negative - Negative POCT U NIT (test code = 3262) n/a Negative - Negati ve POCT U PROT (test code = 3259) Negative Negative - Negat kaitlin POCT U GLU (test code = 3256) Normal Negative - Negati ve POCT U KETONE (test code = 3258) n/a Negative - Neg ative POCT U BLD (test code = 3257) n/a Negative - Negati ve [facility] CenterTRANSFERRIN2022-08-25 08:57:28* Test Item Value Reference Range Interpretation Comme nts TRANSFERRIN (test code = 4936) 263 MG/DL 200-360 IRON BINDING CAPACITY AND IRON AND % [id number] 07:42:40* Test Item Value Reference Range Interpretation Comme nts IRON, SERUM (test code = 2222) 75 UG/DL 37-145 UNSATURATED IBC (test code = 26554) 247 UG/DL 112-347 CALC TOTAL IBC (test code = 2077) 322 UG/DL 250-450 CALC % IRON SAT (test code = 2079) 23 % 20-50 HEPATITIS PANEL, [id number] 07:30:34* Test Item Value Reference Range Interpretation Comme nts HEPATITIS A IgM (test code = 42408) NON-REACTIVE NON-REACTIVE HEPATITIS B CORE IgM (test code = 4644) NON-REACTIVE NON-REACTIVE HEPATITIS B SURF AG (test code = 2739) NON-REACTIVE NON-REACTIVE HEPATITIS C ANTIBODY (test code = 4675) NON-REACTIVE NON-REACTIVE INTERPRETATION HEPATITIS A: (test code = 2552) (NOTE) Hepatitis A serology shows no evidence of acute hepatitis A. INTERPRETATION HEPATITIS B: (test code = 10390) (NOTE) Hepatitis B serology shows no evidence of acute hepatitis B andno indication of exposure to hepatitis B virus in the previous beatrice eight months. INTERPRETATION HEPATITIS C: (test code = 22411) (NOTE) Hepatitis C serology shows no evidence of exposure to hepatitisC virus at this time. It can take up to 12 months after exposure tothe hepatitis C virus for antibodies to become detectable in the blood in certain patients. [id number] 06:58:48* Test Item Value Reference Range Interpretation Comme [facility] FERRITIN (test code = 2075) 85 NG/ML 13-200 VITAMIN B 12 AND FOLIC [id number] 06:58:48* Test Item Value Reference Range Interpretation Comme [facility] VITAMIN B-12 (test code = 2840) 415 PG/ML 200-950 FOLIC ACID (test code = 2695) 4.9 UG/L SEE BELOW L INTERPRETI VE RANGES DEFICIENCY . . . . . . . . . . . . . . . UG/L <4.0 POSSIBLE DEFICIENCY. . . . . . . . . . . UG/L 4.0-5.9 SUFFICIENT . . . . . . . . . . . . . . . UG/L >=6.0 UNLESS OTHERWISE INDICATED, ALL TESTING PERFORMED ATCLINICAL PATHOLOGY [employer] [address] [place] [address] MEAT WRAPPER: OTTONIEL HERNANDEZ M.D. CLIA NUMBER [id number] [facility] [place]. [id number] HEMOGLOBIN [id number] 06:36:51* Test Item Value Reference Range Interpretation Comme [facility] HEMOGLOBIN A1c (test code = 97175) 5.4 % 4.2-5.6 COMPREHENSIVE METABOLIC [id number] 04:10:42* Test Item Value Reference Range Interpretation Comme nts GLUCOSE (test code = 7) 88 MG/DL 70-99 BUN (test code = 2207) 11 MG/DL 6-20 CREATININE (test code = 221) 0.77 MG/DL 0.60-1.30 eGFR (2020 CKD-EPI) (test code = 65958) 108 ML/MIN/1.73 >60 CALC BUN/CREAT (test code = 2235) 14 RATIO 6-28 SODIUM (test code = 223) 139 MEQ/L 133-146 POTASSIUM (test code = 2228) 4.1 MEQ/L 3.5-5.4 CHLORIDE (test code = 2214) 100 MEQ/L 95-107 CARBON DIOXIDE (test code = 2205) 26 MEQ/L 19-31 CALCIUM (test code = 2209) 9.7 MG/DL 8.5-10.5 PROTEIN, TOTAL (test code = 222) 7.2 G/DL 6.1-8.3 ALBUMIN (test code = 2201) 4.4 G/DL 3.5-5.2 CALC GLOBULIN (test code = 2240) 2.8 G/DL 1.9-3.7 CALC A/G RATIO (test code = 2234) 1.6 RATIO 1.0-2.6 BILIRUBIN, TOTAL (test code = 220) 0.8 MG/DL See_Comment [Automated me ssage] The system which generated this result transmitted reference range: <=1.2. The reference range was not used to interpret this result as normal/abnormal. ALKALINE PHOSPHATASE (test code = 2204) 72 U/L 40-112 AST (test code = 2218) 39 U/L 9-40 ALT (test code = 2219) 80 U/L 5-40 H UNLESS OTHERWISE INDICATED, ALL TESTING PERFORMED [facility] [address] [place] [address] MEAT WRAPPER: OTTONIEL HERNANDEZ M.D. CLIA NUMBER [id number] [facility] [place]. [id number] CBC W/AUTO DIFF WITH [id number] 02:28:52* Test Item Value Reference Range Interpretation Comme nts WBC (test code = 1001) 7.6 K/UL 3.5-11.0 RBC (test code = 1002) 4.82 M/UL 3.80-5.40 HEMOGLOBIN (test code = 1003) 14.2 G/DL 11.5-15.5 HEMATOCRIT (test code = 1004) 41.2 % 34.0-45.0 MCV (test code = 1005) 85.5 fL 80.0-99.0 MCH (test code = 1006) 29.5 PG 25.0-33.0 MCHC (test code = 1007) 34.5 G/DL 31.0-36.0 RDW (test code = 1038) 12.6 % 11.5-15.0 NEUTROPHILS (test code = 1008) 47.9 % LYMPHOCYTES (test code = 1010) 44.9 % MONOCYTES (test code = 1011) 5.1 % EOSINOPHILS (test code = 1012) 1.7 % BASOPHILS (test code = 1013) 0.3 % IMMATURE GRANULOCYTES (test code = 1036) 0.1 % NUCLEATED RBCS (test code = 1065) 0.0 /100 WBC'S See_Comment [Automated messa ge] The system which generated this result transmitted reference range: 0.0. The reference range was not used to interpret this result as normal/abnormal. PLATELET COUNT (test code = 1015) 305 K/UL 130-400 ABSOLUTE NEUTROPHILS (test code = 1066) 3.63 K/UL 1.50-7.50 ABSOLUTE LYMPHOCYTES (test code = 1067) 3.41 K/UL 1.00-4.00 ABSOLUTE MONOCYTES (test code = 1068) 0.39 K/UL 0.20-1.00 ABSOLUTE EOSINOPHILS (test code = 1040) 0.13 K/UL 0.00-0.50 ABSOLUTE BASOPHILS (test code = 1069) 0.02 K/UL 0.00-0.20 ABS IMMATURE GRANULOCYTES (test code = 1020) 0.01 K/UL 0.00-0.10 ABS NUCLEATED RBCS (test code = 92203) 0.00 K/UL 0.00-0.11 CBC with [id number] 13:27:00* Test Item Value Reference Range Interpretation Comme nts WBC (test code = 6690-2) See_Comment [Automated messa ge] The system which generated this result transmitted reference range: 4.30 - 11.10 10*3/?L. The reference range was not used to interpret this result as normal/abnormal. RBC (test code = 789-8) See_Comment L [Automated messa ge] The system which generated this result transmitted reference range: 3.93 - 5.25 10*6/?L. The reference range was not used to interpret this result as normal/abnormal. HGB (test code = 718-7) 10.3 g/dL 11.6-15 L HCT (test code = 4544-3) 31.4 % 35.7-45.2 L MCV (test code = 787-2) 82.8 fL 80.6-95.5 MCH (test code = 785-6) 27.2 pg 25.9-32.8 MCHC (test code = 786-4) 32.8 g/dL 31.6-35.1 RDW-SD (test code = 90130-2) 41.1 fL 39-49.9 RDW-CV (test code = 788-0) 13.8 % 12-15.5 PLT (test code = 777-3) See_Comment [Automated messa ge] The system which generated this result transmitted reference range: 166 - 358 10*3/?L. The reference range was not used to interpret this result as normal/abnormal. MPV (test code = 93345-8) 10.4 fL 9.5-12.9 NRBC/100 WBC (test code = 5860247265) See_Comment [Automated [employer] ssage] The system which generated this result transmitted reference range: 0.0 - 10.0 /100 WBCs. The reference range was not used to interpret this result as normal/abnormal. NRBC x10^3 (test code = 4797901181) <0.01 See_Comment [Automated messa ge] The system which generated this result transmitted reference range: 10*3/?L. The reference range was not used to interpret this result as normal/abnormal. GRAN MAT (NEUT) % (test code = 770-8) 50.9 % IMM GRAN % (test code = 4588590759) 0.30 % LYMPH % (test code = 736-9) 40.2 % MONO % (test code = 5905-5) 7.2 % EOS % (test code = 713-8) 1.0 % BASO % (test code = 706-2) 0.4 % GRAN MAT x10^3(ANC) (test code = 9235154692) 5.45 10*3/uL 1.88-7.09 IMM GRAN x10^3 (test code = 7313314270) 0.03 10*3/uL 0-0.06 LYMPH x10^3 (test code = 731-0) 4.30 10*3/uL 1.32-3.29 H MONO x10^3 (test code = 742-7) 0.77 10*3/uL 0.33-0.92 EOS x10^3 (test code = 711-2) 0.11 10*3/uL 0.03-0.39 BASO x10^3 (test code = 704-7) 0.04 10*3/uL 0.01-0.07 REACT LYMPHS (test code = 2218324895) Rare Lab Interpretation (test code = 11368-9) Abnormal [facility]AD [facility]O [facility] - [id number] 09:42:00* Test Item Value Reference Range Interpretation Comme nts RPR (Qualitative) (test code = 75086-7) Nonreactive Nonreactive Lab Interpretation (test cod e = 44880-7) Normal [facility] CenterR[facility] (D) IMMUNE [id number] 20:17:02* Test Item Value Reference Range Interpretation Comme nts RHIG CANDIDATE? (test code = 5055) No- see comment Patient is not a candidate for RhIg- Patient is Rh Positive.Performed at [facility] Laboratory Services - [facility] Blood [address] [place] [address]Jhuz Free: [phone] No. [id number] [facility] CenterVenous Cord [id number] 18:36:00* Test Item Value Reference Range Interpretation Comme nts VENOUS BASE EXCESS, CORD (test code = 9295517463) mEq/L VENOUS PH, CORD (test code = 9756328250) 7.25-7.45 VENOUS PC02, CORD (test code = 7606269790) See_Comment [Automated messa ge] The system which generated this result transmitted reference range: 27 - 49 mmHg. The reference range was not used to interpret this result as normal/abnormal. VENOUS PO2, CORD (test code = 9000151547) See_Comment [Automated me ssage] The system which generated this result transmitted reference range: 17 - 41 mmHg. The reference range was not used to interpret this result as normal/abnormal. VENOUS BICARBONATE, CORD (test code = 0087184761) See_Comment [Automated messa ge] The system which generated this result transmitted reference range: 12 - 29 mEq/L. The reference range was not used to interpret this result as normal/abnormal. [facility] CenterArterial Cord [id number] 18:33:00* Test Item Value Reference Range Interpretation Comme nts BASE EXCESS, CORD (test code = 7262698852) mEq/L AC PH, CORD (BEAKER) (test code = 0441475208) 7.18-7.38 PC02, CORD (test code = 4039071896) See_Comment [Automated messa ge] The system which generated this result transmitted reference range: 32 - 66 mmHg. The reference range was not used to interpret this result as normal/abnormal. PO2, CORD (test code = 6870768329) See_Comment H [Automated messa ge] The system which generated this result transmitted reference range: 10 - 30 mmHg. The reference range was not used to interpret this result as normal/abnormal. BICARBONATE, CORD (test code = 6060343919) See_Comment [Automated me ssage] The system which generated this result transmitted reference range: 17 - 27 mEq/L. The reference range was not used to interpret this result as normal/abnormal. Lab Interpretation (test code = 31460-6) [facility] [id number] 17:03:00 * Test Item Value Reference Range Interpretation Comme nts HBsAg Semi-Quantitative (jeane t code = 5195-3) Negative Negative [facility] Urine [id number] 16:16:00* Test Item Value Reference Range Interpretation Comme nts T. PROT U (test code = 2888-6) 11 mg/dL CREAT U (test code = 2032056146) 40.6 mg/dL Protein/Creatinine Ratio Urine (test code = 6262816498) 0.0-2.0 ANASTASIA (test code = ANASTASIA) Random Urine Total Protein Reference Ranges Random Specimen: ? Less than 10 mg/dLFirst Morning Specimen: ? ?Less than 20 mg/dL ? [facility]00* Test Item Value Reference Range Interpretation Comme nts APPEARANCE (test code = 3690962795) Clear Clear COLOR (test code = 2578440579) Yellow Yellow PH (test code = 2924339827) 4.8-8.0 SP GRAVITY (test code = 3276307206) 1.003-1.030 GLU U QUAL (test code = 4484089705) Normal Normal BLOOD (test code = 2807403687) Negative Negative KETONES (test code = 5655421053) Negative Negative PROTEIN (test code = 2887-8) Negative Negative UROBILIN (test code = 0612099853) Normal Normal BILIRUBIN (test code = 5179854446) Negative Negative NITRITE (test code = 2030272831) Negative Negative LEUK JERARDO (test code = 2908237733) Negative Negative RBC/HPF (test code = 0612320894) See_Comment [Automated [employer]] The system which generated this result transmitted reference range: 0 - 3 HPF. The reference range was not used to interpret this result as normal/abnormal. WBC/HPF (test code = 0407253481) <1 See_Comment [Automated [employer]] The system which generated this result transmitted reference range: 0 - 5 HPF. The reference range was not used to interpret this result as normal/abnormal. BACTERIA (test code = 9749338337) Few Negative A MUCOUS (test code = 8361738546) Slight Negative LPF A SQ EPITH (test code = 5904149892) <1 HPF Lab Interpretation (test code = 57528-5) [facility]normal [facility] [id number] 15:44:00* Test Item Value Reference Range Interpretation Comme nts URIC ACID (test code = 3686481247) 3.9 mg/dL 2.9-6 Lab Interpretation (test cod e = 17203-9) Normal [facility] [id number] 15:44:00* Test Item Value Reference Range Interpretation Comme nts CREATININE (test code = 4465262696) 0.46 mg/dL 0.5-1.04 L eGFR Calculation (Non-) (test code = 4312188603) mL/min/1.73m2 eGFR Calculation () (test code = 0525915005) mL/min/1.73m2 ANASTASIA (test code = ANASTASIA) Association of Glomerular Filtration Rate (GFR) and Staging of Kidney Disease* + --+ --+ ------+| GFR (mL/min/1.73 m2) ?| With Kidney Damage ?| ?Without Kidney Damage+ --------+ --------+ +| ?>90 ?| ?Stage one ?| ? Normal ?+ ---+ ---+ -------+| ?60-89 ?| ?Stage two ?| ? Decreased GFR ? + --+ --+ ------+| ?30-59 ?| ?Stage three ?| ? Stage three ? + --+ --+ ------+| ?15-29 ?| ?Stage four ? | ? Stage four ?+ ---+ ---+ -------+| ?<15 (or dialysis) ? ?| ?Stage five ? | ? Stage five ?+ ---+ ---+ -------+ *Each stage assumes the associated GFR level has been in effect for at least three months. ?Stages 1 to 5, with or without kidney disease, indicate chronic kidney disease. Notes: Determination of stages one and two (with eGFR >59mL/min/1.73 m2) requires estimation of kidney damage for at least three months as defined by structural or functional abnormalities of the kidney, manifested by either:Pathological abnormalities or Markers of kidney damage (including abnormalities in the composition of the blood or urine or abnormalities in imaging tests). Lab Interpretation (test code = 77184-4) [facility]normal [facility] Center[facility] (Asparate Amino Transfer)2020-05-13 15:44:00* Test Item Value Reference Range Interpretation Comme nts AST(SGOT) (test code = 4218865221) 14 U/L 13-40 Lab Interpretation (test cod e = 78380-3) Normal [facility] CenterAlanine Amino Transferase (SGPT)2020-05-13 15:44:00* Test Item Value Reference Range Interpretation Comme nts ALTv (test code = 1742-6) 9 U/L 5-35 Lab Interpretation (test cod e = 75589-0) Normal [facility] with [id number] 13:37:00* Test Item Value Reference Range Interpretation Comme nts WBC (test code = 6690-2) See_Comment [Automated [employer]] The system which generated this result transmitted reference range: 4.30 - 11.10 10*3/?L. The reference range was not used to interpret this result as normal/abnormal. RBC (test code = 789-8) See_Comment [Automated messa ge] The system which generated this result transmitted reference range: 3.93 - 5.25 10*6/?L. The reference range was not used to interpret this result as normal/abnormal. HGB (test code = 718-7) 11.6 g/dL 11.6-15 HCT (test code = 4544-3) 36.5 % 35.7-45.2 MCV (test code = 787-2) 82.4 fL 80.6-95.5 MCH (test code = 785-6) 26.2 pg 25.9-32.8 MCHC (test code = 786-4) 31.8 g/dL 31.6-35.1 RDW-SD (test code = 41928-5) 40.0 fL 39-49.9 RDW-CV (test code = 788-0) 13.3 % 12-15.5 PLT (test code = 777-3) See_Comment [Automated messa ge] The system which generated this result transmitted reference range: 166 - 358 10*3/?L. The reference range was not used to interpret this result as normal/abnormal. MPV (test code = 97403-9) 9.8 fL 9.5-12.9 NRBC/100 WBC (test code = 9086618014) See_Comment [Automated [employer] ssage] The system which generated this result transmitted reference range: 0.0 - 10.0 /100 WBCs. The reference range was not used to interpret this result as normal/abnormal. NRBC x10^3 (test code = 4504392006) <0.01 See_Comment [Automated messa ge] The system which generated this result transmitted reference range: 10*3/?L. The reference range was not used to interpret this result as normal/abnormal. GRAN MAT (NEUT) % (test code = 770-8) 50.5 % IMM GRAN % (test code = 4441168034) 0.30 % LYMPH % (test code = 736-9) 41.7 % MONO % (test code = 5905-5) 6.5 % EOS % (test code = 713-8) 0.7 % BASO % (test code = 706-2) 0.3 % GRAN MAT x10^3(ANC) (test code = 9740308318) 4.90 10*3/uL 1.88-7.09 IMM GRAN x10^3 (test code = 7267684087) 0.03 10*3/uL 0-0.06 LYMPH x10^3 (test code = 731-0) 4.05 10*3/uL 1.32-3.29 H MONO x10^3 (test code = 742-7) 0.63 10*3/uL 0.33-0.92 EOS x10^3 (test code = 711-2) 0.07 10*3/uL 0.03-0.39 BASO x10^3 (test code = 704-7) 0.03 10*3/uL 0.01-0.07 REACT LYMPHS (test code = 0924117425) Rare Lab Interpretation (test code = 41660-6) [facility]normal [facility]HIV [facility]2 AG-AB WITH [id number] 12:02:00* Test Item Value Reference Range Interpretation Comme nts HIV Semi-quantitative (test code = 26708-1) Negative Negative ANASTASIA (test code = ANASTASIA) Non-reactive for HIV-1 antigen and HIV-1/HIV-2 antibodies. ?No laboratory evidence of HIV infection. ?Repeat in 2-4 weeks if acute HIV infection is suspected. [facility] CenterType and Screen - ONCE [id number] 11:02:18 * Test Item Value Reference Range Interpretation Comme nts ABO & RH (test code = 20) AB Positive Performed at [facility] B Laboratory Services - [facility] Blood [address] [place] [id number] Free: [phone] No. [id number] IAT (test code = 1185) Negative Performed at [facility] Laboratory Services - [facility] Blood [address] [place] [id number] Free: [phone] No. [id number] [facility] URINALYSIS W/O SPECIFIC [id number] 16:03:00* Test Item Value Reference Range Interpretation Comme nts POCT PH U (test code = 3254) n/a 5-8 POCT U LEUK EST (test code = 3263) n/a Negative - N egative POCT U NIT (test code = 3262) n/a Negative - Negati ve POCT U PROT (test code = 3259) neg Negative - Negat kaitlin POCT U GLU (test code = 3256) neg Negative - Negati ve POCT U KETONE (test code = 3258) n/a Negative - Neg ative POCT U BLD (test code = 3257) n/a Negative - Negati ve Lab Interpretation (test cod e = 50322-5) Normal [facility]>14 WEEKS US [id number] 23:09:47Cephalic presentationUnNebraska [facility]opa[facility]INALYSIS W/O SPECIFIC [id number] 22:46:00* Test Item Value Reference Range Interpretation Comme nts POCT PH U (test code = 3254) n/a 5-8 POCT U LEUK EST (test code = 3263) n/a Negative - N egative POCT U NIT (test code = 3262) n/a Negative - Negati ve POCT U PROT (test code = 3259) neg Negative - Negat kaitlin POCT U GLU (test code = 3256) neg Negative - Negati ve POCT U KETONE (test code = 3258) n/a Negative - Neg ative POCT U BLD (test code = 3257) n/a Negative - Negati ve Lab Interpretation (test cod e = 28650-6) Normal [facility] URINALYSIS W/O SPECIFIC [id number] 19:26:00* Test Item Value Reference Range Interpretation Comme nts POCT PH U (test code = 3254) N/A 5-8 POCT U LEUK EST (test code = 3263) N/A Negative - Negative POCT U NIT (test code = 3262) N/A Negative - Negati ve POCT U PROT (test code = 3259) Negative Negative - Negat kaitlin POCT U GLU (test code = 3256) Negative Negative - Negati ve POCT U KETONE (test code = 3258) N/A Negative - Neg ative POCT U BLD (test code = 3257) N/A Negative - Negati ve [facility] URINALYSIS W/O SPECIFIC [id number] 17:58:00* Test Item Value Reference Range Interpretation Comme nts POCT PH U (test code = 3254) n/a 5-8 POCT U LEUK EST (test code = 3263) n/a Negative - N egative POCT U NIT (test code = 3262) n/a Negative - Negati ve POCT U PROT (test code = 3259) neg Negative - Negat kaitlin POCT U GLU (test code = 3256) neg Negative - Negati ve POCT U KETONE (test code = 3258) n/a Negative - Neg ative POCT U BLD (test code = 3257) n/a Negative - Negati ve Lab Interpretation (test cod e = 99298-6) Normal [facility] URINALYSIS W/O SPECIFIC [id number] 18:47:00* Test Item Value Reference Range Interpretation Comme nts POCT PH U (test code = 3254) N/A 5-8 POCT U LEUK EST (test code = 3263) N/A Negative - Negative POCT U NIT (test code = 3262) N/A Negative - Negati ve POCT U PROT (test code = 3259) Negative Negative - Negat kaitlin POCT U GLU (test code = 3256) Negative Negative - Negati ve POCT U KETONE (test code = 3258) N/A Negative - Neg ative POCT U BLD (test code = 3257) N/A Negative - Negati ve [facility] URINALYSIS W/O SPECIFIC [id number] 16:58:00* Test Item Value Reference Range Interpretation Comme nts POCT PH U (test code = 3254) n/a 5-8 POCT U LEUK EST (test code = 3263) n/a Negative - N egative POCT U NIT (test code = 3262) n/a Negative - Negati ve POCT U PROT (test code = 3259) neg Negative - Negat kailtin POCT U GLU (test code = 3256) neg Negative - Negati ve POCT U KETONE (test code = 3258) n/a Negative - Neg ative POCT U BLD (test code = 3257) n/a Negative - Negati ve [facility] CenterPO[facility] W/O SPECIFIC [id number] 18:35:00* Test Item Value Reference Range Interpretation Comme nts POCT PH U (test code = 3254) 9 mg/dl 5-8 A POCT U LEUK EST (test code = 3263) neg Negative - Negative POCT U NIT (test code = 3262) neg Negative - Negati ve POCT U PROT (test code = 3259) neg Negative - Negat kaitlin POCT U GLU (test code = 3256) neg Negative - Negati ve POCT U KETONE (test code = 3258) neg Negative - Neg ative POCT U BLD (test code = 3257) neg Negative - Negati ve Lab Interpretation (test cod e = 42877-2) Abnormal [facility] URINALYSIS W/O SPECIFIC [id number] 18:35:00* Test Item Value Reference Range Interpretation Comme nts POCT PH U (test code = 3254) 9 mg/dl 5-8 A POCT U LEUK EST (test code = 3263) neg Negative - Negative POCT U NIT (test code = 3262) neg Negative - Negati ve POCT U PROT (test code = 3259) neg Negative - Negat kaitlin POCT U GLU (test code = 3256) neg Negative - Negati ve POCT U KETONE (test code = 3258) neg Negative - Neg ative POCT U BLD (test code = 3257) neg Negative - Negati ve Lab Interpretation (test cod e = 17577-2) Abnormal [place] [address] HR GLUCOSE TOLERANCE [id number] 17:37:00 * Test Item Value Reference Range Interpretation Comme nts GLUC 1 HR (test code = 4762402380) 134 mg/dL 120-170 Lab Interpretation (test cod e = 20077-5) [facility] HR GLUCOSE TOLERANCE [id number] 17:37:00 * Test Item Value Reference Range Interpretation Comme nts GLUC 2 HR (test code = 1316968739) 105 mg/dL 70-120 Lab Interpretation (test cod e = 84125-9) [facility] HR GLUCOSE TOLERANCE [id number] 17:37:00 * Test Item Value Reference Range Interpretation Comme nts GLUC 3 HR (test code = 8086523062) 82 mg/dL 70-110 Lab Interpretation (test cod e = 06366-0) Normal [facility] CenterGLUCOSE [id number] 17:31:00* Test Item Value Reference Range Interpretation Comme nts GLU FASTNG (test code = 6751684311) 83 mg/dL 70-110 Lab Interpretation (test cod e = 90958-0) [facility] WEEKS US [id number] 00:04:04Limited USG for FHT: ?Single live IUP measured 10 4/7 weeks, consistent with LMP. ?Will date by LMPunless clinically indicated otherwise. Marilee Mancera MD ?10/25/2019 ?7:03 PMUnBaylor Scott & [facility] – TaylorADC / LCC - DRUG SCREEN [id number] 23:22:00* Test Item Value Reference Range Interpretation Comme nts BENZO U (test code = 1765627946) Negative Negative RUBI U (test code = 0191575494) Negative Negative AMPHET (test code = 7706424929) Negative Negative THC (test code = 1116315473) Negative Negative METHADONE (test code = 0768472027) Negative Negative Meth U (test code = 3229822425) Negative Negative OPIATES (test code = 8397584467) Negative Negative Cocaine Metabolite (test code = 5085351092) Negative Negative PROPOXY (test code = 8579310737) Negative Negative Tric U (test code = 6473693411) Negative Negative PCP (test code = 8918914888) Negative Negative OXYCOD (test code = 0328724664) Negative Negative ANASTASIA (test code = ANASTASIA) Urine Drug Cutoff Ranges Benzodiazepines: ? ? 150 ng/mLBarbiturates: ?200 ng/mLAmphetamine: ? 500 ng/mLCannabinoids: ?50 ?ng/mLMethadone: ? 200 ng/mLMethamphetamine: ? ? 500 ng/mL Opiates: ? 100 ng/mL or 2000 ng/mLCocaine: ? 150 ng/mLPropoxyphene: ?300 ng/mLTricyclics: ?300 ng/mLOxycodone: ? 100 ng/mLPCP: ? 25 ?ng/mL The results are to be used only for medical (i.e., treatment) purposes. Unconfirmed screening results must not be used for non-medical purposes (e.g., employment testing, legal testing). Lab Interpretation (test code = 21814-6) Normal [facility]PO[facility] W/O SPECIFIC [id number] 21:06:00* Test Item Value Reference Range Interpretation Comme nts POCT PH U (test code = 3254) na 5-8 POCT U LEUK EST (test code = 3263) na Negative - N egative POCT U NIT (test code = 3262) na Negative - Negati ve POCT U PROT (test code = 3259) neg Negative - Negat kaitlin POCT U GLU (test code = 3256) neg Negative - Negati ve POCT U KETONE (test code = 3258) na Negative - Neg ative POCT U BLD (test code = 3257) na Negative - Negati ve [facility] History and Physical Notes Date/Time Note Provider Source 2023-02-22 07:44:00 Formatting of this n ote might be different from the original. I have seen and examined patient. Denies interval changes. Denies intercourse. Vital signs stable NAD RRR Breathing unlabored Soft, NTTP, no rash No edema A/P: Will proceed with laparoscopic bilateral salpingectomy as planned. All questions answered. Marilee Mancera MD 02/22/2023 7:45 AM Source Note - Marilee Mancera MD - 02/15/2023 1:00 PM CDT Chief Complaint Patient presents with Pre-Op Exam HPI: Omaiar Bernstein is a 28 year old female here for pre-op BTL. No concerns. Denies intercourse. Past Medical History: Diagnosis Date Anemia Mild pre-eclampsia in third trimester 05/13/2020 Past Surgical History: Procedure Laterality Date INSERT CERVICAL DILATOR 01/04/2023 OB History Para Term AB Living 4 3 2 1 1 3 SAB IAB Ectopic Multiple Live Births 1 0 0 0 3 # Outcome Date GA Lbr Robert/2nd Weight Sex Delivery Anes PTL Lv 4 01/05/23 36w6d 5 lb 7.5 oz (2.48 kg) M NORMAL SPONT EPI N SHIRA 3 Term 05/13/20 39w0d 6 lb 14 oz (3.12 kg) M NORMAL SPONT EPI N SHIRA 2 SAB 11/12/15 6w5d 1 Term 01/01/13 39w0d 7 lb (3.18 kg) M NORMAL SPONT None SHIRA No Known Allergies Patient's Medications START taking these medications No medications on file CONTINUE taking these medications which have NOT CHANGED No medications on file START taking Modified Medications as Prescribed No medications on file STOP taking these medications DOCUSATE 100 MG CAPSULE Take 2 capsules by mouth once daily as needed for Constipation. FERROUS SULFATE 325 MG (65 MG IRON) TABLET Take 1 tablet by mouth in the morning and 1 tablet in the evening. IBUPROFEN 600 MG TABLET Take 1 tablet by mouth every 6 (six) hours as needed (Pain). Take with food or milk. NIFEDIPINE ER 30 MG TABLET Take 1 tablet by mouth in the morning. PNV 67-IRON PS-FOLATE NO.1-DHA (VITAFOL ULTRA) 29 MG IRON- 1 MG-200 MG CAP Take 1 tablet by mouth in the morning. If insurance does not cover can substituent with any other mediation that contains components. Family History Problem Relation Age of Onset Cancer Maternal Aunt Heart Maternal Grandmother Arthritis NoFHx Asthma NoFHx defects NoFHx Breast Cancer NoFHx Colon Cancer NoFHx Ovarian Cancer NoFHx Uterine Cancer NoFHx Depression NoFHx Diabetes NoFHx Genetic NoFHx High cholesterol NoFHx Hypertension NoFHx Mental retardation NoFHx Neurological NoFHx Osteoporosis NoFHx Psychiatry NoFHx Other - see comments NoFHx Social History Socioeconomic History Marital status: Number of children: 1 Tobacco Use Smoking status: Never Passive exposure: Never Smokeless tobacco: Never Vaping Use Vaping Use: Never used Substance and Sexual Activity Alcohol use: Not Currently Alcohol/week: 0.0 standard drinks of alcohol Drug use: No Sexual activity: Yes Partners: Male control/protection: None Other Topics Concern Blood Transfusions No Social History Narrative No domestic violence or abuse [employer] Preference none Denied cats in home Social Determinants of Health Financial Resource Strain: Low Risk (05/13/2020) Overall Financial Resource Strain (CARDIA) Difficulty of Paying Living Expenses: Not hard at all Food Insecurity: No Food Insecurity (05/13/2020) Hunger Vital Sign Worried About Running Out of Food in the Last Year: Never true Ran Out of Food in the Last Year: Never true Transportation Needs: No Transportation Needs (05/13/2020) PRAPARE - Transportation Lack of Transportation (Medical): No Lack of Transportation (Non-Medical): No Review of Systems Constitutional: Negative for chills, fatigue and fever. HENT: Negative for congestion, rhinorrhea, sneezing and sore throat. Respiratory: Negative for cough, chest tightness, shortness of breath and wheezing. Cardiovascular: Negative for chest pain and palpitations. Gastrointestinal: Negative for abdominal distention, abdominal pain, anal bleeding, blood in stool, constipation, diarrhea, nausea and vomiting. Genitourinary: Negative for dysuria, urgency, frequency, vaginal bleeding and vaginal discharge. Musculoskeletal: Negative for gait problem. Skin: Negative for rash. Neurological: Negative for syncope, light-headedness and headaches. Psychiatric/Behavioral: Negative for dysphoric mood, self-injury and suicidal ideas. Hematological: Does not bruise/bleed easily. BP: (128)/(88) Temp: [36.9 ?C (98.4 ?F)] Temp source: Oral (02/15 1306) Pulse: [89] Resp: [18] SpO2: -- Height: [5' 3" (160 cm)] Weight: [191 lb (86.6 kg)] BMI (calculated): [33.83] Physical Exam Vitals reviewed. Constitutional: She is oriented to person, place, and time. Her body habitus is obese Cardiovascular: Regular rate and rhythm. Pulmonary/Chest: Breath sounds clear to auscultation. Normal inspiratory effort. Abdominal: Abdomen is soft. No tenderness present. No hernia palpated or inspected. Neuro/Psychiatric: She has a normal mood and affect. She is oriented to person, place, and time. A/P: Pre-operative evaluation for tubal ligation (primary encounter diagnosis) - Tubal consent signed on 11/15/22 "I counseled the patient regarding risks, benefits and alternatives of laparoscopic Bilateral Tubal Ligation including: risk of infection, bleeding, need for transfusion of blood/blood products, injury to ureter, bladder, bowel with possible further surgery, stint, catheterization or colostomy to repair, conversion to open. The permanence of this procedure and risk of regret in 1 in 3 women were discussed. tubal ligation failure rate is 0.75% and higher in women younger than 30 years old. There is an increased risk for ectopic and the need to seek medical attention should failure of tubal ligation occur. Alternatives discussed include: Oral Contraceptive Agents, Intrauterine Device, Nexplanon, Depo Provera, Ring, Patch, Condoms/foam, vasectomy of partner, or bilateral salpingectomy. Salpingectomy has been shown to decrease risk of ovarian cancer, similar to tubal ligation; however, no tubal reversal will be able to be done in the future and might be able to achieve with in vitro fertilization only. All questions answered, and patient expressed her desire to proceed with bilateral salpingectomy." - Plan for laparoscopic bilateral salpingectomy on 02/22/23 - RTC in 2 wks for post-op visit Marilee Mancera MD [facility] 2023-01-04 08:36:04 Formatting of this n ote is different from the original. TRIAGE HISTORY & PHYSICAL IDENTIFYING DATA Omaira Bernstein is 27 year old, /White, 36w5d, female with BOBBY 01/27/2023, by Last Menstrual Period. : 1995 Primary Care Physician: PATIENT DOES NOT HAVE A PCP CHIEF COMPLAINT Sent from clinic for evaluation HISTORY OF PRESENT ILLNESS Omaira Bernstein is a 27 year old female @ 36w5d sent from clinic yesterday for elevated BP with headache and lower extremity swelling. Also diagnosed with UTI in clinic. +FM. No VB, LOF, or CTX. No pre-eclampsia sx or other complaints. PAST OBSTETRIC HISTORY OB History Para Term AB Living 4 2 2 0 1 2 SAB IAB Ectopic Multiple Live Births 1 0 0 0 2 # Outcome Date GA Lbr Robert/2nd Weight Sex Delivery Anes PTL Lv 4 Current 3 Term 05/13/20 39w0d 3118 g M NORMAL SPONT EPI N SHIRA 2 SAB 11/12/15 6w5d 1 Term 01/01/13 39w0d 3175 g M NORMAL SPONT None SHIRA PAST MEDICAL HISTORY Problem list: Patient Active Problem List Diagnosis Date Noted 36 weeks gestation of 01/04/2023 High-risk in third trimester 06/28/2022 Obesity in , antepartum 06/28/2022 Elevated BP without diagnosis of hypertension 05/13/2020 Mild pre-eclampsia in third trimester 05/13/2020 Obesity (BMI 30-39.9) 10/11/2019 Nausea and vomiting during prior to 22 weeks gestation 10/11/2019 Operations: No past surgical history on file. Past Medical History: Diagnosis Date Anemia Mild pre-eclampsia in third trimester 05/13/2020 CURRENT HEALTH STATUS Medications: Current Facility-Administered Medications Medication Dose Route Frequency Last Rate Last Admin cephALEXin (KEFLEX) capsule 250 mg 250 mg Oral Q6H betamethasone acet,sod phos (CELESTONE SOLUSPAN) 6 mg/mL injection 12 mg 12 mg Intramuscular Q24H 12 mg at 01/03/23 0866 Allergies and drug reactions: Patient has no known allergies. HOME MEDICATIONS Medications Prior to Admission Medication Sig Dispense Refill Last Dose PNV no.95/ferrous fum/folic ac ( ORAL) Take by mouth. Taking FOLIC ACID ORAL Take by mouth. Taking SOCIAL HISTORY Tobacco History: Social History Tobacco Use Smoking Status Never Passive exposure: Never Smokeless Tobacco Never Drug History: Social History Substance and Sexual Activity Drug Use No Alcohol History: Social History Substance and Sexual Activity Alcohol Use Not Currently Alcohol/week: 0.0 standard drinks of alcohol FAMILY HISTORY Family History Problem Relation Age of Onset Cancer Maternal Aunt Heart Maternal Grandmother Arthritis NoFHx Asthma NoFHx defects NoFHx Breast Cancer NoFHx Colon Cancer NoFHx Ovarian Cancer NoFHx Uterine Cancer NoFHx Depression NoFHx Diabetes NoFHx Genetic NoFHx High cholesterol NoFHx Hypertension NoFHx Mental retardation NoFHx Neurological NoFHx Osteoporosis NoFHx Psychiatry NoFHx Other - see comments NoFHx REVIEW OF SYSTEMS General: negative Constitutional: negative Eyes: negative ENT/Mouth: negative Cardiovascular: negative Respiratory: negative Gastrointestinal:negative Genitourinary: negative Musculoskeletal: negative Skin/breast: negative Neurological: negative Psychiatric: negative Endocrine: negative Hemat/Lymph: negative Allergic/Immuno:none VITAL SIGNS BP: (129-162)/(69-104) Temp: [36.3 ?C (97.3 ?F)-36.6 ?C (97.9 ?F)] Temp source: Temporal Artery (01/04 722) Pulse: [72-94] Resp: [16-18] SpO2: [95 %-99 %] Height: [152.4 cm (5')] Weight: [97 kg (213 lb 12.8 oz)] BMI (calculated): [41.75] PHYSICAL EXAMINATIONS Gen: alert and oriented, well appearing, no distress CV: RRR, normal S1/S2, no m/r/g Resp: normal work of breathing, lungs CTAB Abd: gravid, soft, NTTP Ext: no calf tenderness or edema : Deferred REVIEW OF LABORATORY, PATHOLOGY, AND RADIOLOGY DATA Lab results: Type & Screen HIV Hep B Syphilis Chlamydia ABO & RH Date Value Ref Range Status 11/09/2022 AB Positive Final No results found for: "HIVMULTIPLEX" No components found for: "HBSHBSAG" No results found for: "SYPIGG" C. trachomatis Nucleic Acid Date Value Ref Range Status 06/28/2022 Negative Negative Final IAT Date Value Ref Range Status 11/09/2022 Negative Final Varicella Rubella Glucose Group B Strep CBC VZV IgG antibody Date Value Ref Range Status 07/14/2022 Negative Negative Final Rubella screen IgG Date Value Ref Range Status 07/14/2022 Negative Negative Final GLUC 1 HR Date Value Ref Range Status 11/09/2022 117 (L) 120 - 170 mg/dL Final No results found for: "CGBS" HGB Date Value Ref Range Status 01/03/2023 11.3 (L) 11.6 - 15.0 g/dL Final HCT Date Value Ref Range Status 01/03/2023 33.9 (L) 35.7 - 45.2 % Final PLT Date Value Ref Range Status 01/03/2023 306 166 - 358 10*3/?L Final Active Hospital Problems Diagnosis Date Noted 36 weeks gestation of 01/04/2023 Obesity in , antepartum 06/28/2022 High-risk in third trimester 06/28/2022 Mild pre-eclampsia in third trimester 05/13/2020 Resolved Hospital Problems No resolved problems to display. Present on Admission: Mild pre-eclampsia in third trimester Obesity in , antepartum High-risk in third trimester 36 weeks gestation of ASSESSMENT AND PLAN Omaira Bernstein is a 27 year old at 36w5d who presents with elevated BPs and UTI. Pre-eclampsia without severe features - BP normal to mild ranging. Had 2 severe range that is mild range on recheck. - headache has resolved - plan for delivery at 37 wks unless clinically indicated otherwise decels - intermittent decels noted, last one was at ~ 2:30 today. - Spoke and reviewed strip with SAM Gold. Will order BPP and growth scan - will continue to monitor at this time MPDPS - BTL consent signed on 11/15/[address] Mancera, please see OB Summary for more details Marilee Mancera MD [facility] - Health Procedure Notes Date/Time Note Provider Source 2023-02-22 08:39:48 Procedure(s): LAPARO SCOPIC SALPINGECTOMY Pre-Procedure Diagnose(s): Encounter for tubal ligation Post-Procedure Diagnose(s): Encounter for tubal ligation; Status post bilateral salpingectomy LAPAROSCOPIC TUBAL SALPINGECTOMY Date of Service: 02/22/2023 Faculty Surgeon: Marilee Mancera Anesthesia Type: General IV Fluids: 600 cc Lactated Ringers Colloid Fluids: None Specimens Sent to Pathology: bilateral fallopian tubes Urine Output: 200 cc of clear urine Complications: none Estimated Blood Loss: < 10 mL Patient Status: Patient in stable condition and taken to recovery room Narrative: Omaira Bernstein is a 28 year old female desires permanent sterilization with laparoscopic bilateral salpingectomy. Description of Findings: Normal liver edge, normal uterus, fallopian tubes and ovaries. The trocar sites were inspected and no injury or bleeding identified. Summary of Procedure: After informed written consent was given by patient to proceed with above procedure for above indications, the patient was taken to the operating room and general endotracheal anesthesia induced. Patient was placed in dorsal lithotomy position, and prepped and draped. De Jesus catheter placed. Sponge stick placed in the vagina. A half inch incision was made in the umbilicus . The 5 mm laparoscopic trocar and laparoscopic camera were then introduced under direct visualization confirming placement in the peritoneal cavity and CO2 was then allowed to insufflate the peritoneal cavity with attention to adequate pressures. Under direct laparoscopic guidance, 2 skin incisions were made in the left quadrant and 8 mm and 5 mm laparoscopic trocars introduced. The inspection of the pelvis then ensued with findings as above. Each fallopian tube was grasped and removed with ligasure. Hemostasis noted. CO2 was allowed to egress through the trocars until abdominal pressure at 5 mmHg and hemostasis noted. 30 cc of 0.25% Marcaine placed intraperitoneally. Trocars were then removed under laparoscopic guidance. The skin incision sites were closed with 4-0 monycryl suture and dermabond and covered with dressing. All instruments removed. Patient's sponge and needle counts were correct times 2. Patient tolerated the procedure well and was awakened and taken to the PAC-U in stable condition. Marilee Mancera MD 02/22/2023 8:40 AM [facility] 2023-01-05 04:45:05 Associated Order(s): Central Neuraxial Block Central Neuraxial Block Date/Time: 01/05/2023 4:15 AM Performed by: Tima Balderas MD Authorized by: Tima Balderas MD Patient Location: OB End Time: 01/05/2023 4:45 AM Reason for Block: OB request, Patient request, Labor analgesia, Surgical anesthesia and Post-op pain management Staff: Anesthesiologist: Tima Balderas MD Performed by: anesthesiologist Preanesthetic Checklist: patient identified, IV checked, risks and benefits explained, monitors and equipment checked, timeout performed, pre-op evaluation, site marked and anesthesia consent Procedure: Type of Neuraxial: Epidural Epidural Description: DPE Sterility Prep cap, drape, gloves, hand hygiene and mask Sedation Level no sedation Prep: Betadine and patient draped Monitoring: heart rate, continuous pulse ox, heart rate / toco and NIBP Location: lumbar (1-5) Lumbar: L4-L5 Approach: midline Technique: catheter and DIXIE saline Guidance with: landmark technique} Epidural/Spinal Drybranch and/or Catheter: Epidural/Spinal Kit: BBraun Needle Type: Tuohy Needle Gauge: 17 G Needle Length: 3.5 in (8.89 cm) Needle Insertion Depth: 7 Catheter Type: multiport Catheter Size: 19 G Catheter at Skin Depth: 12 Number of Attempts: 1 Test Dose: lidocaine 1.5% with epinephrine 1-to-200,000 and negative Dose: 3 cc Catheter Securement Method: surgical tape and Tegaderm Assessment: Block Outcome: patient tolerated procedure well Procedure Assessment: patient tolerated procedure well with no complications [facility] [employer] 2023-01-04 18:21:36 Procedure(s): INSERT CERVICAL DILATOR Pre-Procedure Diagnose(s): 36 weeks gestation of ; Severe preeclampsia, third trimester Post-Procedure Diagnose(s): 36 weeks gestation of ; Severe preeclampsia, third trimester De Jesus bulb inserted in a sterile manner and inflated with 60 cc of normal saline without complications. Patient tolerated the procedure well. MPDPS - patient desires bilateral salpingectomy Marilee Mancera MD #[id number] 01/04/2023 6:22 PM [facility] Notes Date/Time Note Provider Source 2023-02-21 16:00:00 Formatting of this n ote is different from the original. Images from the original note were not included. Venipuncture collection performed by clean technique on the right anticubitus. Total of 1 attempts were made. Slight pressure and a bandage/dressing were applied to the site(s). The patient experienced no complications. The following specimens were processed according to instructions and sent to [facility] laboratories per lab order on 02/21/2023 : LT BLUE SST 1 RED LAV 3 PPT DK GREEN (LiHep) DK GREEN (SodH) KARIMI DK BLUE (K2) DK BLUE (S) ACD Blood Culture NIPT/NTD [facility] 2023-02-15 10:51:44 Formatting of this n ote might be different from the original. Images from the original note were not included. Your procedure is at [facility] on 02/22/23. The address is [address] [place] [address], [id number]. [facility] nursing staff will call you the workday before your procedure to let you know what time to arrive.On the day of your procedure, please go inside that door and check in at the desk. Please note: You may not travel home alone and that includes in a taxi or by bus. We must speak to your Responsible Adult (who will be picking you up) the morning of your procedure, before the start of your procedure. This person must be an adult over the age of 18 years of age. Do not eat any solid food after midnight the night before surgery. You may have sips of clear liquids such as water, gatorade, and sprite up until two hours before your scheduled procedure. You may take your medications with a sip of water as directed by physician. Anticoagulants will be per physician guidance. Medication Note(s)/Instructions:n/a Pending screening, we may test for COVID. If a patient tests positive, their cases are cancelled and/or rescheduled. COVID SCREENING NOTE: Denies COVID symptoms, no testing required. Additional requests, questions, concerns:n/a Patient verbalized understanding of pre-op instructions and voiced no further questions at this time. Rose Interiano RN [facility] 2023-01-14 17:01:38 Formatting of this n ote might be different from the original. Contacted patient. Patient states her stool is black and green. Patient is currently on iron supplements. Patient denies stomach pain. Patient advised color of stool is most likely due to iron supplements. Patient advised to monitor stool. Patient verbalized understanding. Leo Hooker RN 01/14/2023 5:02 PM Leo Hooker RN [facility] 2023-01-14 16:04:44 Formatting of this n ote might be different from the original. Pt is concerned she delivered her baby and now her bowel movements are black. Pt would like to speak to a nurse. Please advise Shelby Rousseau [facility] 2023-01-06 17:25:17 Formatting of this n ote might be different from the original. Problem: Complications of preeclampsia/eclampsia (risk or actual) Goal: Absence of seizure activity Outcome: Adequate for discharge Goal: Absence of signs and symptoms of preeclampsia Outcome: Adequate for discharge Problem: Falls, Risk of Goal: Absence of falls Outcome: Adequate for discharge Problem: Discharge Planning - Goal: Adequate for discharge Outcome: Adequate for discharge Goal: Mood stable Outcome: Adequate for discharge Vishal Foote RN [facility] 2023-01-06 14:31:58 Summary: Follow up Images from the original note were not included. This note was copied from a baby's chart. Feeding plan for infants 35 - 36.6 weeks gestation, weight less than or equal to 2500 grams, or weight loss greater than 10%: The typical feeding behavior of a late baby: -weak suck -lack stamina -tire easily during a feeding -sleepy -difficult to awaken for feedings is encouraged, but supplementation is necessary for all infants to prevent hypoglycemia and jaundice. Triple Feeding Plan: means that you do 3 things every time you feed your baby 1. Breastfeed 2. Bottle-feed 3. Pump Breastfeed: Breastfeed whenever your baby is showing feeding cues, with a maximum of 3 hours in between each feed. If your baby has not eaten for 3 hours, you will need to wake your baby to eat. Recommend first for a maximum of 20 mins then offering bottle immediately after . Stop whenever your baby is no longer actively/vigorously sucking and is engaging in more non-nutritive sucking. Bottle-feed: After or if your baby won't latch, give expressed breastmilk or formula ad kelsie. Offer the bottle until the baby disengages from the feeding. If expressed breastmilk is available give it first for supplementation. If more volume is needed for supplementation, then make up the difference in needed volume with formula. Recommended volume of expressed breast milk or formula to give your baby: -First feedin - 10 mL at 2 hours of age -Day 1: 10 - 15 mL -Day 2: 15 - 25 mL -Day 3 and beyond: 20 - 35 mL or as per MD/MESSAGE BROKER DEVELOPER order -Increase by 5 - 10 mL per feeding per day Pump: You will need to begin pumping within 6 hours of delivery. After each session, you need to hand express or pump for 15-20 minutes. This will ensure you produce an adequate milk supply for your baby. The goal is to keep the baby fed, both via and then topping the baby off with the bottle, while continually working on so that eventually the bottle-feeding and pumping steps can be stopped. Continue this triple feeding regimen and wean off supplementation as directed by your outpatient Slice Plug Cutter Operator. Generally, mom will slowly reduce the amount of volume she is topping the baby off with after a session until the top offs are not necessary. As the baby gains adequate weight on this regimen and improves his/her energy and efficiency at the breast over time, the bottle feeding can be gradually reduced while the length of lengthened. Milk storage guidelines: Freeze milk in small amounts (1-2 oz.), it will thaw more quickly. It is important to remember liquids expand when frozen, so be sure to leave some extra room (about an inch) at the top of the container so the bottle or bag won't burst. Defrosting breast milk: Never microwave breast milk. Microwaving can cause severe dunn to baby's mouth from hot spots that develop in the milk during microwaving. Microwaving can also change the composition of breast milk. Thaw milk overnight in the refrigerator, or hold the bottle under warm running water to quickly thaw. You can also place the sealed container in a bowl of warm water for 20 minutes to bring it to body temperature. Make sure the water does not come up to the level of the collar of the bottle. Thawed milk is safe in the refrigerator for 24 hours. Once thawed, DO NOT REFREEZE. Nipple shield use: If your baby is struggling to maintain a latch you can try to use a nipple shield. This is a thin, flexible piece of silicone, shaped like a nipple, with holes in the tip for mom's milk to pass through. The nipple shield offers your baby a larger, firmer target, as well as stimulating his/her palate to encourage him/her to suck. In general nipple levin should be considered as a short-term solution. If problems or pain occur, consult your inside solar sales consultant or specialist, who will ensure your baby is latching well with the shield in place. Over time, as your baby s suck gets stronger and your nipples become more accustomed to , you might be able to breastfeed without the nipple shield. Discussed with mom the typical feeding behavior of a late baby. Explained that it is expected that her baby could lack stamina and tire easily during a feeding. Reinforced with mom the importance of continuing to pump to build a good milk supply. Educated on triple feeding plan. Instructed mom that she will need to first breastfeed the baby (maximum 3 hours in between each feed). Encouraged mom to offer both breasts prior to giving supplementation to allow the baby to practice at the breast. Then mom will need to supplement with expressed breastmilk or formula. Encouraged mom to give her expressed breastmilk first for supplementation and if more volume is needed to use formula to make up the difference. Then, to ensure mom establishes an adequate milk supply, she will need to pump for 15 minutes (after ) to remove as much milk as possible from her breasts. Explained that she may need to continue to use a breast pump for a few days or weeks after she goes home. Explained that the goal is to keep the baby fed, both via nursing and then topping the baby off with the bottle, while continually working on nursing so that eventually the pumping and bottle-feeding steps can be stopped. Encouraged mom to hold the baby [id number] as much a possible. Discussed that her baby may get cold easily and that [id number] holding is the best way to keep her baby warm and will also make it easier to breastfeed often. Educated that babies who are held [id number] usually cry less and mom's who hold their babies generally make more breastmilk. Explained that her baby may be sleepy and difficult to awaken for feedings. Encouraged mom to breastfeed whenever the baby seems hungry (showing feeding cues): at least every 2-3 hours (8-12 feedings around the clock). Discussed with mom that if she feels the baby is not emptying her breasts fully or is not wanting to breastfeed frequently then she should begin hand expression or pumping to remove her milk. Explained that she may need to continue to use a breast pump for a few days or weeks after she goes home. Mom instructed on triple feeding plan and assembly, usage and cleaning of Symphony breast pump. Instructed on milk storage guidelines. Mom encouraged to pump at a comfortable setting to promote/stimulate milk supply. Pump observation done with 24 mm flanges-fit appropriately. Mom was able to express colostrum. Mom requesting to not use a bottle nipple at this time. Demonstrated syringe/finger feeding to parents, fed 5mls of EBM. Martha TOWNSEND, RN, IBCLC Martha Rosales RN [facility] 2023-01-06 12:50:00 Summary: F ollow up This note was copied from a baby's chart. Evaluation Situation Initial visit Background Baby Boy is 1 day old, born weighing 2480g, and has lost -4.44% of weight. Gestational Age: 36w6d at INFANT FEEDING STATUS Formula supplementation via MATERNAL STATUS Pumping Hand expressing Assessment, Recommendations, Education Assisted mom with positioning and asymmetrical latch technique in the football hold. Initially the baby was latched shallow, but after giving more neck and back support she was able to achieve a deeper latch. Infant latch and only took a few sucks and fell asleep. Despite alerting techniques and oral motor stimulation, he remained sleepy and would not latch back on to the breast. Mom instructed on how to contact Diesel Roller Operator for assistance with feedings or to answer questions while in the hospital. Mom also given Warm Line and Breast Milk Bistro information for help once discharged home. Verbalized understanding. Assessment KRISTIAN Du, RN, IBCLC [facility] 2023-01-06 09:55:00 Summary: Follow up This note was copied from a baby's chart. Visited mom to offer assistance with . Mom sleeping requested I return at a later time. Martha TOWNSEND, RN, IBCLC T [facility] 2023-01-05 20:05:17 Formatting of this n ote might be different from the original. Problem: Complications of preeclampsia/eclampsia (risk or actual) Goal: Absence of seizure activity Outcome: Progressing as expected Goal: Absence of signs and symptoms of preeclampsia Outcome: Progressing as expected Problem: Falls, Risk of Goal: Absence of falls Outcome: Progressing as expected Problem: Discharge Planning - Goal: Adequate for discharge Outcome: Progressing as expected Goal: Mood stable Outcome: Progressing as expected [facility] 2023-01-05 18:54:41 Formatting of this n ote might be different from the original. Problem: Complications of preeclampsia/eclampsia (risk or actual) Goal: Absence of seizure activity Outcome: Progressing as expected Goal: Absence of signs and symptoms of preeclampsia Outcome: Progressing as expected Problem: Falls, Risk of Goal: Absence of falls Outcome: Progressing as expected Problem: Discharge Planning - Goal: Adequate for discharge Outcome: Progressing as expected Goal: Mood stable Outcome: Progressing as expected Rosy Fontaine RN [facility] 2023-01-05 09:02:02 Formatting of this n ote might be different from the original. Problem: Intrapartum process (including labor pain) Goal: Absence of or reduction of complications of labor Outcome: Resolved Goal: Able to cope with pain Outcome: Resolved Goal: Adequate to move to next level of care Outcome: Resolved Goal: Reduction in pain sensation Outcome: Resolved [facility] 2023-01-05 07:20:21 Formatting of this n ote is different from the original. DELIVERY BY SPONTANEOUS VAGINAL DELIVERY Delivery Date: 01/05/2023 Delivery Time: 6:54 AM Delivery Summary Omaira Bernstein is a 27 year old female @ 36w6d The patient was admitted to the Labor & Delivery unit for induction at 36 weeks due to pre-eclampsia with severe features. Delivery Physician: Marilee Mancera MD Intrapartum Anesthesia/Analgesia: Epidural Mode of Delivery: Delivery of jones fetus with cephalic presentation Fetus Spontaneous vaginal delivery of head with cephalic position, occipital anterior. As the head crowned and distended the perineum, no episiotomy was performed. A blue towel was used to protect the perineum as the head crowned and delivered. The other hand was used to exert pressure on the occiput to control the delivery of the head. The perineum was pushed with a towel-draped hand as the head and mouth was delivered over the perineum. The head was allowed to rotate externally to achieve natural body posture. Examination of neck revealed no umbilical cord. The shoulder was delivered by gentle downward traction applied to head and downward traction for the delivery of anterior shoulder. This was followed by upward traction with delivery of posterior shoulder and body. After the delivery of , bulb suction was performed from ororpharynx and nostril with removal of clear amniotic fluid. A normal, male was delivered. The umbilical cord was double clamped, cut and the was handed off the field to the circulating nurse Placenta Placenta was delivered spontaneously while the abdominal hand lifted the uterus cephalad and other hand keeping the umbilical cord slightly taut. Laceration: None Laceration Repair: No laceration repair needed. Fourth Stage Fourth stage of labor was managed by uterine massage with abdominal hand and infusion 20 units of pitocin mixed with intravenous fluid. QBL: see I/O's Complications: None Weight: 2480 g 1 Minute 5 Minute 10 Minute Totals: 8 9 Marilee Mancera MD 01/05/2023 7:21 AM [facility] 2023-01-05 04:46:44 Formatting of this n ote is different from the original. Name/ MRN / Age / Gender: Omaira Bernstein, [id number] 27 year old female BMI: Estimated body mass index is 41.75 kg/m? as calculated from the following: Height as of 01/03/23: 1.524 m (5'). Weight as of 01/03/23: 97 kg (213 lb 12.8 oz). Allergies: Patient has no known allergies. Last Vitals: BP Readings from Last 1 Encounters: 01/05/23 (!) 159/100 Pulse Readings from Last 1 Encounters: 01/05/23 84 SpO2 Readings from Last 1 Encounters: 01/05/23 98% Date of Surgery: Surgeon: * Surgery not found * Procedure: CENTRAL NEURAXIAL BLOCK OR Location: [place] [facility] OUT OF OR - OR LOCATION Anesthesia Preop Eval (physical exam) Anesthesia Preop: [id number] NPO Status Verified Anesthesia History (-) Hx of anesthetic complications Previous Anesthetics/Airways Cardiovascular Negative Cardiac ROS Pulmonary Negative Pulmonary ROS Neuro/Musculoskeletal Negative Neuro/Musculosketal ROS GI/Hepatic Negative GI/Hepatic ROS Hematology Negative Hematology ROS Comments: CBCWBC (10*3/?L) Date Value 01/03/2023 8.57 RBC (10*6/?L) Date Value 01/03/2023 4.08 PLT (10*3/?L) Date Value 01/03/2023 306 HGB (g/dL) Date Value 01/03/2023 11.3 (L) HCT (%) Date Value 01/03/2023 33.9 (L) Renal Negative Renal ROS Skin Negative Skin ROS (+) Current IV access and 18g Endo/Other Negative Endo/Other ROS 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 Hold on DOS. Phentermine: Alert [facility] anesthesiologist SGLT2 Inhibitors: "gliflozins" to be held for 3 days prior to elective surgeries MAC Cases: Continue taking SERINA inhibitors and ARBs ASA Classification ASA: 3 Current Medications: No outpatient medications have been marked as taking for the 01/05/23 encounter (Anesthesia Event) with Tima Balderas MD. Previous Surgeries: Past Surgical History: Procedure Laterality Date INSERT CERVICAL DILATOR 01/04/2023 Anesthesia Physical Exam General no apparent distress and alert and oriented x 3 Neuro/Psych neurological Nonfocal Dental no notable dental hx Abdominal GI exam normal Airway Mallampati score:III Neck ROM: full Mouth opening:normal Extremity Normal extremity Pulmonary pulmonary exam normal Other Cardiovascular cardiovascular exam normalRhythm:Regular Rate: Normal Anesthesia Plan ASA Status: 3 Plan discussed during pre-op evaluation: General, Epidural and Spinal Anesthetic plan on DOS: Epidural Anesthesia plan discussed with: 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 Problem: Intrapartum process (including labor pain) Goal: Absence of or reduction of complications of labor Outcome: Progressing as expected Goal: Able to cope with pain Outcome: Progressing as expected Goal: Adequate to move to next level of care Outcome: Progressing as expected Goal: Reduction in pain sensation Outcome: Progressing as expected Problem: Complications of preeclampsia/eclampsia (risk or actual) Goal: Absence of seizure activity Outcome: Progressing as expected Goal: Absence of signs and symptoms of preeclampsia Outcome: Progressing as expected Problem: Falls, Risk of Goal: Absence of falls Outcome: Progressing as expected Problem: Discharge Planning - Goal: Adequate for discharge Outcome: Progressing as expected Goal: Mood stable Outcome: Progressing as expected [facility] 2023-01-04 22:41:18 Formatting of this n ote might be different from the original. Problem: Intrapartum process (including labor pain) Goal: Absence of or reduction of complications of labor Outcome: Progressing as expected Goal: Able to cope with pain Outcome: Progressing as expected Goal: Adequate to move to next level of care Outcome: Progressing as expected Goal: Reduction in pain sensation Outcome: Progressing as expected Problem: Complications of preeclampsia/eclampsia (risk or actual) Goal: Absence of seizure activity Outcome: Progressing as expected Goal: Absence of signs and symptoms of preeclampsia Outcome: Progressing as expected Problem: Falls, Risk of Goal: Absence of falls Outcome: Progressing as expected Problem: Discharge Planning - Goal: Adequate for discharge Outcome: Progressing as expected Goal: Mood stable Outcome: Progressing as expected Yanira Palacios RN [facility] 2023-01-04 22:30:50 Formatting of this n ote is different from the original. Name/ MRN / Age / Gender: Omaira Bernstein, [id number] 27 year old female BMI: Estimated body mass index is 41.75 kg/m? as calculated from the following: Height as of an earlier encounter on 01/03/23: 1.524 m (5'). Weight as of an earlier encounter on 01/03/23: 97 kg (213 lb 12.8 oz). Allergies: Patient has no known allergies. Last Vitals: BP Readings from Last 1 Encounters: 01/04/23 (!) 155/96 Pulse Readings from Last 1 Encounters: 01/04/23 91 SpO2 Readings from Last 1 Encounters: 01/04/23 98% Date of Surgery: Surgeon: * Surgery not found * Procedure: LABOR CONSULT OR Location: * No surgery found * Anesthesia Preop Eval (physical exam) Anesthesia Preop: [id number] NPO Status Verified Anesthesia History (-) Hx of anesthetic complications Previous Anesthetics/Airways Cardiovascular Negative Cardiac ROS Pulmonary Negative Pulmonary ROS Neuro/Musculoskeletal Negative Neuro/Musculosketal ROS GI/Hepatic Negative GI/Hepatic ROS Hematology Negative Hematology ROS Comments: CBCWBC (10*3/?L) Date Value 01/03/2023 8.57 RBC (10*6/?L) Date Value 01/03/2023 4.08 PLT (10*3/?L) Date Value 01/03/2023 306 HGB (g/dL) Date Value 01/03/2023 11.3 (L) HCT (%) Date Value 01/03/2023 33.9 (L) Renal Negative Renal ROS Skin Negative Skin ROS (+) Current IV access and 18g Endo/Other Negative Endo/Other ROS 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 Hold on DOS. Phentermine: Alert [facility] anesthesiologist SGLT2 Inhibitors: "gliflozins" to be held for 3 days prior to elective surgeries MAC Cases: Continue taking SERINA inhibitors and ARBs ASA Classification ASA: 3 Current Medications: No outpatient medications have been marked as taking for the 01/03/23 encounter (Hospital Encounter). Previous Surgeries: Past Surgical History: Procedure Laterality Date INSERT CERVICAL DILATOR 01/04/2023 Anesthesia Physical Exam General no apparent distress and alert and oriented x 3 Neuro/Psych neurological Nonfocal Dental no notable dental hx Abdominal GI exam normal Airway Mallampati score:III Neck ROM: full Mouth opening:normal Extremity Normal extremity Pulmonary pulmonary exam normal Other Cardiovascular cardiovascular exam normalRhythm:Regular Rate: Normal Anesthesia Plan ASA Status: 3 Plan discussed during pre-op evaluation: General, Epidural and Spinal Anesthetic plan on DOS: Epidural Anesthesia 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 Problem: Intrapartum process (including labor pain) Goal: Absence of or reduction of complications of labor Outcome: Progressing as expected Goal: Able to cope with pain Outcome: Progressing as expected Goal: Adequate to move to next level of care Outcome: Progressing as expected Goal: Reduction in pain sensation Outcome: Progressing as expected Problem: Complications of preeclampsia/eclampsia (risk or actual) Goal: Absence of seizure activity Outcome: Progressing as expected Goal: Absence of signs and symptoms of preeclampsia Outcome: Progressing as expected Problem: Falls, Risk of Goal: Absence of falls Outcome: Progressing as expected Problem: Discharge Planning - Goal: Adequate for discharge Outcome: Progressing as expected Goal: Mood stable Outcome: Progressing as expected Roxann Kamara RN [facility] 2023-01-04 01:00:00 Formatting of this n ote might be different from the original. Received report from Bing Kamara RN [id number] Sent to L&D from clinic due to headache, edema, elevated bp, and UTI. Endorses + movement Denies LOF or vaginal bleeding Rocephin and Tylenol administered by previous shift. Monitor pt, collect serial bp's. Pt denies current headache and states "I can only feel it a little if I sit up too fast" Report given to Dr. Mancera Tox labs collected POC: Keep pt overnight for continuous bp and monitoring [facility] 2023-01-03 16:00:00 Formatting of this n ote might be different from the original. Age: [age] year old GA: 36w4d Elevated BP without diagnosis of hypertension -BP 150s over 90s to 100s in clinic today -Headache started last night. Has not taken anything for headache yet -Also reports edema started over the weekend -To L&D for further evaluation Dysuria -U dip with positive nitrites -We will treat for UTI while awaiting urine culture result Cephalic presentation GC/CT and GBS obtained, CBC ordered Zika precautions reviewed Delivery consent signed today [facility]
[2024-02-06] MEDS ORDERED: dexAMETHasone 10 MG/ML VIAL ONE (14:32)
[2024-02-06] MEDS ORDERED: CYCLOBENZAPRINE 10 MG TAB ONE (14:32)
[2024-02-06] MEDS ORDERED: KETOROLAC 30 MG/ML INJ ONE (14:32)
[2024-02-06 15:41] LABS: Specific Gravity 1.029 (1.005-1.030); Sqamous Epithelial <5 /HPF (None Seen); Urine Bacteria 20-50 /HPF (<20); Urine Bilirubin NEGATIVE (Negative); Urine Blood 3+ (OVER) (Negative); Urine Clarity Extremely Turbid (Clear); Urine Color Yellow (Yellow); Urine Culture Reflex Order REFLEXED; Urine Glucose NEGATIVE (Negative); Urine Ketones NEGATIVE (Negative); Urine Micro Reflex YN NO BILL MICROSCOPIC; Urine Mucus Slight /HPF (None Seen); Urine Nitrite NEGATIVE (Negative); Urine Protein 1+ (Negative); Urine RBC >50 /HPF (None Seen); Urine Urobilinogen Normal (Normal); Urine WBC 20-50 /HPF (<5)
[2024-02-06 15:42] LABS: Specific Gravity 1.029 (1.005-1.030)
--- NOTE | 2024-02-06 16:58 | RAD REPORT ---
EXAM DESCRIPTION: [facility] Protocol - 02/06/2024 4:44 pm CLINICAL HISTORY: FLANK PAIN COMPARISON: Spine Lumbar Wo Con dated 02/10/2022; Lumbar Spine Wo Con dated 02/10/2022 TECHNIQUE: CT of the abdomen and pelvis was performed without IV contrast. All CT scans are performed using dose optimization technique as appropriate and may include automated exposure control or mA/KV adjustment according to patient size. FINDINGS: Lower chest: No acute abnormality. Liver: Hepatic steatosis. Suspected areas of fatty sparing present. Biliary: No biliary ductal dilatation. Stomach: No significant focal abnormality. Duodenum: No significant focal abnormality. Pancreas: No significant abnormality. Spleen: No significant abnormality. Adrenal: No suspicious lesions. Kidney/ureter: No hydronephrosis. No renal calculi. Retroperitoneum: No retroperitoneal adenopathy. Vascular: No aneurysm. Bowel: Normal appendix.. No bowel obstruction. Peritoneum: No ascites or free air. Bladder: Grossly unremarkable. Reproductive: No adnexal masses. Bones: No acute fracture. Nonspecific sclerosis along the right SI joint, predominately along the javad ac bone likely related to degenerative changes. This was present previously as well. No erosive kim es. 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 No evidence of significant central spinal stenosis or neural foraminal narrowing within limitations of CT. A small central disc protrusion is present at L5-S1 which is probably of little clinical signi ficance. This was previously evaluated on the MRI from 02/10/2022. Other: n/a IMPRESSION: No acute intra-abdominal or pelvic finding. No urinary tract calculi. Hepatic steatosis.
--- NOTE | 2024-02-06 17:01 | EDPHYS ---
Physician Documentation [facility] Name: Selina Lundberg Age: 29 yrs Sex: Female : 1995 Arrival Date: 02/06/2024 Time: 13:59 Bed 10 Private MD: ED Physician Dustin Schroeder HPI: 02/05 14:31 This 29 yrs old Female presents to ER via Ambulatory with complaints of Back sb4 Pain. 14:31 The patient presents with pain that is acute, and decreased range of motion. The sb4 symptoms are located in the low back. Onset: The symptoms/episode began/occurred 3 day(s) ago. The pain radiates to the right leg. Associated signs and symptoms: The patient has no apparent associated signs or symptoms. The patient has experienced similar episodes in the past, a few times, today's symptoms are similar. The patient has not recently seen a physician. patient states that she was using the restroom a few days ago when her back "locked up" says the pain worsened when she started her menstrual cycle yesterday. denies any numbness, tingling, bowel/bladder incontinence. 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 - Infectious Disease History:: Denies. - Social history:: Smoking status: Patient denies any tobacco usage or history of. ROS: 14:31 Constitutional: Negative for fever, chills, and weight loss, sb4 14:31 Back: Positive for injury or acute deformity, decreased range of motion, pain at rest, pain with movement, radiated pain, of the lumbar area, left low back and right low back, 14:31 All other systems are negative, Exam: 14:31 Head/Face: Normocephalic, atraumatic. Eyes: Extra-ocular motions intact. Periorbital sb4 areas with no swelling, redness, or edema. ENT: Mucous membranes moist. Skin: Warm, dry with normal turgor. Normal color with no rashes, no lesions, and no evidence of cellulitis. 14:31 Constitutional: The patient appears alert, awake, uncomfortable, 14:31 Back: pain, that is moderate, of the right low back and left low back and lumbar area, ROM is decreased, normal spinal alignment noted, CVA tenderness, is absent, muscle spasm, is not present, 14:31 Neuro: Motor: no acute changes, moves all fours, Sensation: is normal, Gait: is steady, appropriate for age, Vital Signs: 14:08 BP 151 / 102; Pulse 85; Resp 18; Temp 98.6; Pulse Ox 95% ; Weight 84.82 kg; Height 5 db ft. 0 in. ; 17:06 BP 148 / 92; Pulse 86; Resp 16; Temp 98.2; Pulse Ox 96% ; db 14:08 Body Mass Index 36.52 (84.82 kg, 152.4 cm) db MDM: 14:06 Patient medically screened. sb4 15:26 Data reviewed: vital signs, nurses notes, lab test result(s), radiologic studies, and sb4 as a result, I will discharge patient. Counseling: I had a detailed discussion with the patient and/or guardian regarding the historical points, exam findings, and any diagnostic results supporting the discharge/admit diagnosis, lab results, radiology results, to return to the emergency department if symptoms worsen or persist or if there are any questions or concerns that arise at home. 02/05 14:25 Order name: UAM; Complete Time: 15:52 sb4 02/05 14:25 Order name: Test, Urine; Complete Time: 15:52 sb4 02/05 15:50 Order name: Urine Culture [facility] 02/05 15:53 Order name: CT Stone Protocol; Complete Time: 16:59 sb4 Administered Medications: 14:44 Drug: Ketorolac IM 30 mg IM once Route: IM; Site: right deltoid; tl4 15:01 Follow up: Response: No adverse reaction; Medication administered at discharge. tl4 14:44 Drug: Dexamethasone IM 10 mg IM once Route: IM; Site: left deltoid; tl4 15:01 Follow up: Response: No adverse reaction; Pain is decreased tl4 14:44 Drug: Cyclobenzaprine PO 10 mg PO once Route: PO; tl4 15:01 Follow up: Response: No adverse reaction; Pain is decreased tl4 Disposition Summary: 02/06/24 17:01 Discharge Ordered Notes: Location: Home sb4 Problem: an acute exacerbation sb4 Symptoms: have improved sb4 Condition: Stable sb4 Diagnosis - Low back pain sb4 - UTI/ Urinary tract infection, site not specified sb4 - Strain of muscle, fascia and tendon of lower back sb4 Followup: sb4 - With: Private Physician - When: As needed - Reason: Recheck today's complaints, Re-evaluation by your physician Discharge Instructions: - Discharge Summary Sheet sb4 - Acute Back Pain, Adult sb4 - Urinary Tract Infection, Adult, [id number] sb4 Forms: - Work release form sb4 - Patient Portal Instructions sb4 - Leadership Thank You Letter sb4 Prescriptions: - Cyclobenzaprine 10 mg Oral Tablet - take 1 tablet ORAL route every 8 hours As needed; 30 tablet; Refills: 0, sb4 Product Selection Permitted - Diclofenac Sodium 75 mg Oral Tablet Sustained Release - take 1 tablet ORAL route 2 times per day; 30 tablet; Refills: 0, Product sb4 Selection Permitted - Medrol (Oliver) 4 mg Oral Tablets, Dose Pack - take 1 tablet ORAL route as directed - follow package instructions; 1 packet; sb4 Refills: 0, Product Selection Permitted - Macrobid 100 mg Oral Capsule - take 1 capsule ORAL route every 12 hours for 7 days; 14 capsule; Refills: 0, sb4 Product Selection Permitted Signatures: Dispatcher [employer] Melissa aHm, RN RN Laura Castorena, PA-C PA-C sb4 Edy Sinha RN RN tl4 Corrections: (The following items were deleted from the chart) 14:12 14:11 PMHx: Hypertensive disorder; mike mckeon 16:43 14:26 Spine Lumbar Wo Con+[id number].[id number] ordered. ED EDMS
--- NOTE | 2024-02-06 17:01 | ER ---
Nurse's Notes [facility] Name: Selina Lundberg Age: 29 yrs Sex: Female : 1995 Arrival Date: 02/06/2024 Time: 13:59 Bed 10 Private MD: Diagnosis: Low back pain;UTI/ Urinary tract infection, site not specified;Strain of muscle, fascia and tendon of lower back Presentation: 02/05 14:08 Chief complaint: Patient states: RIGHT LOWER BACK PAIN SINCE TUESDAY. STATES BENT DOWN db TO USE RESTROOM WHEN TRYING TO GET UP ALL OF A SUDDEN BACK WAS TIGHT. Coronavirus screen: Client denies travel out of the [place] in the last 14 days. At this time, the client does not indicate any symptoms associated with coronavirus-19. Ebola Screen: Patient negative for fever greater than or equal to 101.5 degrees Fahrenheit, and additional compatible Ebola Virus Disease symptoms Patient denies exposure to infectious person. Patient denies travel to an Ebola-affected area in the 21 days before illness onset. No symptoms or risks identified at this time. Initial Sepsis Screen: Does the patient meet any 2 criteria? No. Patient's initial sepsis screen is negative. Does the patient have a suspected source of infection? No. Patient's initial sepsis screen is negative. Risk Assessment: Do you want to hurt yourself or someone else? Patient reports no desire to harm self or others. Onset of symptoms was February 06, 2024. 14:08 Method Of Arrival: Ambulatory db 14:08 Acuity: SUNNI 4 db Triage Assessment: 14:11 General: Appears in no apparent distress. uncomfortable, Behavior is calm, cooperative. db Pain: Complains of pain in back. Neuro: Level of Consciousness is awake, alert, obeys commands, Oriented to person, place, time, situation. Respiratory: Airway is patent Respiratory effort is even, unlabored, Respiratory pattern is regular, symmetrical. Musculoskeletal: Circulation, motion, and sensation intact. Capillary refill < 3 seconds. 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 - Infectious Disease History:: Denies. - Social history:: Smoking status: Patient denies any tobacco usage or history of. Screenin:45 [facility] ED Fall Risk Assessment (Adult) History of falling in the last 3 months, tl4 including since admission No falls in past 3 months (0 pts) Confusion or Disorientation No (0 pts) Intoxicated or Sedated No (0 pts) Impaired Gait No (0 pts) Mobility Assist Device Used No (0 pt) Altered Elimination No (0 pt) Score/Fall Risk Level 0 - 2 = Low Risk Oriented to surroundings, Maintained a safe environment, Educated pt \T\ family on fall prevention, incl call for assistance when getting out of bed, Assessed \T\ reinforced patient's understanding of fall precautions. Abuse screen: Denies threats or abuse. Denies injuries from another. Nutritional screening: No deficits noted. Tuberculosis screening: No symptoms or risk factors identified. Assessment: 14:44 General: Appears uncomfortable, Behavior is calm, cooperative. Pain: Complains of pain tl4 in lumbar area and right leg. Neuro: Level of Consciousness is awake, alert, obeys commands, Oriented to person, place, time, situation, Moves all extremities. Full function Gait is steady. Cardiovascular: Capillary refill < 3 seconds Patient's skin is warm and dry. Respiratory: Airway is patent Respiratory effort is even, unlabored, Respiratory pattern is regular, symmetrical. GI: No signs and/or symptoms were reported involving the gastrointestinal system. : No signs and/or symptoms were reported regarding the genitourinary system. EENT: No signs and/or symptoms were reported regarding the EENT system. Derm: No signs and/or symptoms reported regarding the dermatologic system. Musculoskeletal: Reports pain in right leg and lumbar area. 17:06 Reassessment: Patient appears in no apparent distress at this time. Patient and/or db family updated on plan of care and expected duration. Pain level reassessed. Patient is alert, oriented x 3, equal unlabored respirations, skin warm/dry/pink. Patient states feeling better. Patient states symptoms have improved. Vital Signs: 14:08 BP 151 / 102; Pulse 85; Resp 18; Temp 98.6; Pulse Ox 95% ; Weight 84.82 kg; Height 5 db ft. 0 in. ; 17:06 BP 148 / 92; Pulse 86; Resp 16; Temp 98.2; Pulse Ox 96% ; db 14:08 Body Mass Index 36.52 (84.82 kg, 152.4 cm) db ED Course: 14:01 Patient arrived in ED. mr 14:02 Laura Hunter PA-C is PHCP. sb4 14:02 Dustin Schroeder MD is Attending Physician. sb4 14:11 Triage completed. db 14:11 Arm band placed on Patient placed in an exam room. db 14:32 Edy Sinha RN is Primary Nurse. tl4 14:46 Patient has correct armband on for positive identification. Call light in reach. pt tl4 seated in chair due to comfort. pt states she can't tolerate sitting on bed. Provided Education on: ed process, call monte. Door closed. Noise minimized. Lights dimmed. Moved to private room. 14:47 No provider procedures requiring assistance completed. Patient did not have IV access tl4 during this emergency room visit. 15:25 Test, Urine Sent. tl4 15:25 UAM Sent. tl4 15:25 Urine collected: clean catch specimen. tl4 16:44 [facility] Protocol In Process Unspecified. EDMS Administered Medications: 14:44 Drug: Ketorolac IM 30 mg IM once Route: IM; Site: right deltoid; tl4 15:01 Follow up: Response: No adverse reaction; Medication administered at discharge. tl4 14:44 Drug: Dexamethasone IM 10 mg IM once Route: IM; Site: left deltoid; tl4 15:01 Follow up: Response: No adverse reaction; Pain is decreased tl4 14:44 Drug: Cyclobenzaprine PO 10 mg PO once Route: PO; tl4 15:01 Follow up: Response: No adverse reaction; Pain is decreased tl4 Medication: 14:45 VIS not applicable for this client. tl4 Outcome: 17:01 Discharge ordered by . sb4 17:06 Discharged to home ambulatory, db 17:06 Condition: stable 17:06 Discharge instructions given to patient, Instructed on discharge instructions, follow up and referral plans. Prescriptions given X 4, 17:07 Patient left the ED. db Signatures: Dispatcher [employer] EDMS Karol Pierre, Reg Reg mr Melissa Patterson RN RN Laura Castorena PA-C PA-C sb4 Edy Sinha RN RN tl4 Corrections: (The following items were deleted from the chart) 12 14:11 PMHx: Hypertensive disorder; db db
[2024-02-06 17:14] VITALS: BP 148/92; TEMP 98.2; O2SAT 96
== END 2024-02-06 17:07 | disposition home or self-care (01) ==
LOC: ER 13:59
DX: N39.0 Urinary tract infection, site not specified (principal); S39.012A Strain of muscle, fascia and tendon of lower back, initial encounter
CPT/HCPCS: 96372; 99284